=== PATIENT | female | born 1930 | race Caucasian/White ===

== ENCOUNTER 2017-09-29 14:15 | Inpatient (IN) | payer MEDICARE, BC ==
[~2017-09-29] VITALS: Ht 144.8 cm; Wt 42.6 kg
[~2017-09-29 14:15] MED LIST: MACROBID100 MG ORAL
--- NOTE | 2017-09-29 14:51 | Emergency Room Report ---
History of Present Illness General Chief Complaint: Gastrointestinal Bleed Source: Patient, Medical Record Present Illness HPI This is an 87-year-old female brought in by EMS from home after increased rectal bleeding. Patient reportedly had a prior history of mental status abnormalities. The patient noted to have dark stool by caregiver associated with some bright red blood on the diaper. The patient is followed by Dr. Mike Rao. Patient had some complaints of abdominal pain. History is markedly limited by patient's mental status and poor historian Allergies: Coded Allergies: SULFA (SULFONAMIDE ANTIBIOTICS) (Verified Allergy, Unknown, 10/12/15) Patient History Past Medical History: see triage record Past Surgical History: unable to obtain Reviewed Nursing Documentation: PMH: Agreed, PSxH: Agreed Nursing Documentation-PMH Past Medical History: No History, Except For Hx Hypertension: Yes Hx Neurological Problems: Yes - dementia Hx Cerebrovascular Accident: Yes - CVA 2011 Review of Systems All Other Systems: limited - by mental status Physical Exam Vital Signs Date Time Temp Pulse Resp B/P (MAP) Pulse Ox O2 Delivery O2 Flow Rate FiO2 09/29/17 14:16 97.2 84 16 88/41 94 Room Air Sp02 EP Interpretation: normal General Appearance: alert, Chronically Ill Head: normocephalic Eyes: bilateral eye PERRL ENT: normal pharynx Neck: full range of motion, supple Respiratory: lungs clear, no rhonchi Cardiovascular #1: normal peripheral pulses, regular rate, rhythm, no edema Gastrointestinal: normal inspection, tenderness - mild diffuse tenderness Musculoskeletal: normal inspection Neurologic: alert, responsive Psychiatric: anxious Skin: normal inspection, normal color Lymphatic: normal inspection Medical Decision Making Diagnostic Impression: Primary Impression: Fecal impaction in rectum Additional Impressions: Leukocytosis Proctitis ER Course Patient presented for abdominal pain. Differential diagnoses included ischemic bowel, appendicitis, perforated viscus, abdominal aortic aneurysm, inferior myocardial infarction, viral gastroenteritis, splenic artery aneurysm rupture among others.Because of complexity of patient's case laboratory testing and imaging studies were ordered. Medical records reviewed from previous visit. 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 The patient was given IV Zosyn for presumed infection. Patient was noted to have elevated white blood count. CT of the abdomen pelvis read by radiologist as severe fecal impaction with associated proctitis and thickening inflammation of the rectal wall. Dr. Mike Roa was contacted for inpatient management due to primary care physician. Dr. Adame was contacted by Dr. Roa and patient was seen by Dr. Solares in ED. Labs Test 09/29/17 14:50 09/29/17 16:21 White Blood Count 23.2 K/UL (4.8-10.8) Red Blood Count 4.80 M/UL (4.20-5.40) Hemoglobin 15.7 G/DL (12.0-16.0) Hematocrit 48.2 % (37.0-47.0) Mean Corpuscular Volume 100 FL (80-99) Mean Corpuscular Hemoglobin 32.6 PG (27.0-31.0) Mean Corpuscular Hemoglobin Concent 32.5 G/DL (32.0-36.0) Red Cell Distribution Width 12.1 % (11.6-14.8) Platelet Count 42 K/UL (150-450) Mean Platelet Volume 12.9 FL (6.5-10.1) Neutrophils (%) (Auto) % (45.0-75.0) Lymphocytes (%) (Auto) % (20.0-45.0) Monocytes (%) (Auto) % (1.0-10.0) Eosinophils (%) (Auto) % (0.0-3.0) Basophils (%) (Auto) % (0.0-2.0) Differential Total Cells Counted 100 Neutrophils % (Manual) 72 % (45-75) Lymphocytes % (Manual) 6 % (20-45) Monocytes % (Manual) 15 % (1-10) Eosinophils % (Manual) 0 % (0-3) Basophils % (Manual) 0 % (0-2) Band Neutrophils 7 % (0-8) Platelet Estimate Decreased Platelet Morphology Giant Platelets Occasional Polychromasia 1+ Macrocytosis 1+ Sodium Level 140 MMOL/L (136-145) Potassium Level 4.9 MMOL/L (3.5-5.1) Chloride Level 104 MMOL/L (98-107) Carbon Dioxide Level 24 MMOL/L (21-32) Anion Gap 12 mmol/L (5-15) Blood Urea Nitrogen 23 mg/dL (7-18) Creatinine 1.3 MG/DL (0.55-1.30) Estimat Glomerular Filtration Rate mL/min (>60) Glucose Level 204 MG/DL (74-106) Calcium Level 9.8 MG/DL (8.5-10.1) Total Bilirubin 1.0 MG/DL (0.2-1.0) Aspartate Amino Transf (AST/SGOT) 43 U/L (15-37) Alanine Aminotransferase (ALT/SGPT) 23 U/L (12-78) Alkaline Phosphatase 55 U/L (46-116) Total Protein 6.8 G/DL (6.4-8.2) Albumin 3.8 G/DL (3.4-5.0) Globulin 3.0 g/dL Albumin/Globulin Ratio 1.3 (1.0-2.7) EKG Diagnostic Results Rate: normal - 83 Rhythm: NSR ST Segments: no acute changes Last Vital Signs Date Time Temp Pulse Resp B/P (MAP) Pulse Ox O2 Delivery O2 Flow Rate FiO2 09/29/17 14:16 97.2 84 16 88/41 94 Room Air Status: unchanged Disposition: ADMITTED INPATIENT Condition: Serious Referrals: MIKE ROA (PCP) Keith Kay Sep 29, 2017 14:51
[2017-09-29 15:29] LABS: MEAN CORPUSCULAR HEMOGLOBIN 32.6 PG (27.0-31.0); MEAN CORPUSCULAR HGB CONC 32.5 G/DL (32.0-36.0); MEAN CORPUSCULAR VOLUME 100 FL (80-99); MEAN PLATELET VOLUME 12.9 FL (6.5-10.1); PLATELET COUNT 42 K/UL (150-450); RED CELL DISTRIBUTION WIDTH 12.1 % (11.6-14.8)
[2017-09-29 15:33] LABS: WHITE BLOOD COUNT 23.2 K/UL (4.8-10.8)
[2017-09-29] MEDS ORDERED: Zosyn 3.375gm/50ml Premix 50 ML IVPB ONE (15:45)
[2017-09-29 15:48] LABS: ANION GAP 12 mmol/L (5-15); CALCIUM 9.8 MG/DL (8.5-10.1); CARBON DIOXIDE 24 MMOL/L (21-32); CHLORIDE 104 MMOL/L (98-107); CREATININE 1.3 MG/DL (0.55-1.30); POTASSIUM 4.9 MMOL/L (3.5-5.1); SODIUM 140 MMOL/L (136-145)
[2017-09-29 15:53] LABS: ALANINE AMINOTRANSFERASE 23 U/L (12-78); ALBUMIN/GLOBULIN RATIO 1.3 (1.0-2.7); ASPARTATE AMINO TRANSFERASE 43 U/L (15-37); TOTAL PROTEIN 6.8 G/DL (6.4-8.2)
[2017-09-29 16:41] LABS: BAND NEUTROPHILS % (MANUAL) 7 % (0-8); LYMPHOCYTES % (MANUAL) 6 % (20-45); NEUTROPHILS % (MANUAL) 72 % (45-75); TOTAL CELLS COUNTED 100
[2017-09-29 16:42] LABS: BASOPHILS % (MANUAL) 0 % (0-2); EOSINOPHILS % (MANUAL) 0 % (0-3); PLATELET ESTIMATE DECREASED
[2017-09-29 16:43] LABS: MACROCYTES 1+; POLYCHROMASIA 1+
[2017-09-29] MEDS ORDERED: ZANTAC150 MG ORAL (16:48)
[2017-09-29] MEDS ORDERED: SINEMET 25-1001 EAC1 ORAL (16:48)
[2017-09-29] MEDS ORDERED: BUPROPION HCL200 MG PO (16:48)
[2017-09-29] MEDS ORDERED: SIMVASTATIN20 MG ORAL (16:48)
[2017-09-29] MEDS ORDERED: LEXAPRO10 MG ORAL (16:48)
[2017-09-29] MEDS ORDERED: VITAMIN D400 INTLU ORAL (16:48)
[2017-09-29] MEDS ORDERED: NAMENDA10 MG ORAL (16:48)
[2017-09-29] MEDS ORDERED: LISINOPRIL20 MG ORAL (16:48)
[2017-09-29] MEDS ORDERED: QUETIAPINE FUMA50 MG ORAL (16:48)
[2017-09-29] MEDS ORDERED: TRAZODONE HCL150 MG ORAL (16:48)
--- NOTE | 2017-09-29 17:03 | Diagnostic Imaging Report ---
Indication: Abdominal pain Technique: Continuous helical transaxial imaging of the abdomen and pelvis was obtained from the lung bases to the pubic symphysis during intravenous contrast administration. Coronal 2-D reformats were also obtained. Study obtained in a Siemens sensation [address] Automatic Exposure Control was utilized. Total Dose length Product (DLP): [address] Dose Index Volume (CTDIvol): 9.54, 0.15 mGy Comparison: 10/12/15 Findings: There is an omentum of stool in the colon and rectal vault. The rectum is distended measuring about 10 cm. There is thickening of the wall the rectum and perirectal ill-definition soft tissue stranding indicative of proctitis. There is a large hiatal hernia. There is a small right pleural effusion and compressive atelectasis at the right lung base. Curvilinear calcifications are noted along the course of the splenic artery in 2 locations suspicious for small aneurysms (measuring 1.1 CM and 1.3 CM). The liver and spleen unremarkable. Gallbladder and both kidneys appear unremarkable. No evidence of bowel obstruction. Multiple calcific issues noted in the uterus consistent with fibroids. There are diverticula in the colon. There is narrowing of intervertebral discs and accompanying endplate osteophyte formation. Hypertrophied facet joints also demonstrated.. Retrolisthesis noted at L1-2. Impression: Severe fecal impaction. Associated proctitis and thickening inflammation of the rectal wall. Large hiatal hernia. 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
--- NOTE | 2017-09-29 17:29 | GI Initial Consult Note ---
DignaMiranda Rocaoi NLandy 09/29/17 1729: History of Present Illness General Date patient seen: Sep 29, 2017 Time patient seen: 17:16 Reason for Hospitalization: Gastrointestinal Bleed Referring physician: CASSIE ROA Reason for Consultation: LGIB Present Illness HPI This is an 87-year-old female brought in by EMS from home after increased rectal bleeding. Patient reportedly had a prior history of mental status abnormalities. The patient noted to have dark stool by caregiver associated with some bright red blood on the diaper. The patient is followed by Dr. Cassie Roa. Patient had some complaints of abdominal pain. History is markedly limited by patient's mental status and poor historian. GI consulted for GI bleed. HPI as noted above. ROS limited, pt seen in ED awake alert able to answer simple questions with son at bedside. C/o of abdominal pain tender to touch all quadrants. Rectal exam shows hematochezia. CT AP reviewed shows severe fecal impaction associated proctitis and thickening inflammation of the rectal wall, see full report. History received fro chart DM , CVA 2011. Patient presents today with leucocytosis and elevated glucose. Home Meds Active Scripts Nitrofurantoin Monohyd/M-Cryst (Nitrofurantoin Forest-Mcr 100 mg) 100 Mg Cap, 100 MG ORAL Q12H, #14 CAP Prov:RAMIRO JORDAN D.O. 10/13/15 Reported Medications Lisinopril (LISINOPRIL*) 20 Mg Tablet, 20 MG ORAL BID, TAB 09/29/17 Simvastatin (ZOCOR) 20 Mg Tablet, 20 MG ORAL BEDTIME, TAB 09/29/17 Quetiapine Fumarate* (QUETIAPINE FUMARATE*) 50 Mg Tablet, 25 MG ORAL BID, TAB 09/29/17 Escitalopram Oxalate* (LEXAPRO*) 10 Mg Tablet, 5 MG ORAL DAILY, TAB 09/29/17 Trazodone* (TRAZODONE*) 150 Mg Tablet, 50 MG ORAL BEDTIME, TAB 09/29/17 Vitamin D (Vitamin D3) 400 Unit Tablet, 2000 UNITS ORAL BID, TAB 09/29/17 Ranitidine Hcl* (ZANTAC*) 150 Mg Tablet, 150 MG ORAL DAILY, #30 TAB 0 Refills 09/29/17 Memantine Hcl* (NAMENDA*) 10 Mg Tablet, 10 MG ORAL TWICE A DAY, TAB 09/29/17 Bupropion Hcl (BUPROPION HCL SR) 200 Mg Tablet.er, 75 MG PO DAILY, TAB 09/29/17 Carbidopa/Levodopa 25-100 Mg* (SINEMET 25-100 MG TABLET*) 1 Each Tablet, 1 TAB ORAL BID, TAB 09/29/17 Med list reviewed/reconciled: Yes Allergies: Coded Allergies: SULFA (SULFONAMIDE ANTIBIOTICS) (Verified Allergy, Unknown, 10/12/15) Patient History Limited by: medical condition History Provided By: Patient, Family Member, Medical Record PMH Narrative Past Medical History: see triage record Past Surgical History: unable to obtain Reviewed Nursing Documentation: PMH: Agreed, PSxH: Agreed Nursing Documentation-PMH Past Medical History: No History, Except For Hx Hypertension: Yes Hx Neurological Problems: Yes - dementia Hx Cerebrovascular Accident: Yes - CVA 2011 Social History: Denies: smoking, alcohol use, drug use, other Review of Systems All Other Systems: negative except mentioned in HPI Physical Exam Vital Signs Date Time Temp Pulse Resp B/P (MAP) Pulse Ox O2 Delivery O2 Flow Rate FiO2 09/29/17 14:16 97.2 84 16 88/41 94 Room Air Sp02 EP Interpretation: reviewed, normal Labs Laboratory Tests Test 09/29/17 14:50 09/29/17 16:21 White Blood Count 23.2 K/UL (4.8-10.8) *H Red Blood Count 4.80 M/UL (4.20-5.40) Hemoglobin 15.7 G/DL (12.0-16.0) Hematocrit 48.2 % (37.0-47.0) H Mean Corpuscular Volume 100 FL (80-99) H Mean Corpuscular Hemoglobin 32.6 PG (27.0-31.0) H Mean Corpuscular Hemoglobin Concent 32.5 G/DL (32.0-36.0) Red Cell Distribution Width 12.1 % (11.6-14.8) Platelet Count 42 K/UL (150-450) L Mean Platelet Volume 12.9 FL (6.5-10.1) H Neutrophils (%) (Auto) % (45.0-75.0) Lymphocytes (%) (Auto) % (20.0-45.0) Monocytes (%) (Auto) % (1.0-10.0) Eosinophils (%) (Auto) % (0.0-3.0) Basophils (%) (Auto) % (0.0-2.0) Differential Total Cells Counted 100 Neutrophils % (Manual) 72 % (45-75) Lymphocytes % (Manual) 6 % (20-45) L Monocytes % (Manual) 15 % (1-10) H Eosinophils % (Manual) 0 % (0-3) Basophils % (Manual) 0 % (0-2) Band Neutrophils 7 % (0-8) Platelet Estimate Decreased L Platelet Morphology Giant Platelets Occasional Polychromasia 1+ Macrocytosis 1+ Sodium Level 140 MMOL/L (136-145) Potassium Level 4.9 MMOL/L (3.5-5.1) Chloride Level 104 MMOL/L (98-107) Carbon Dioxide Level 24 MMOL/L (21-32) Anion Gap 12 mmol/L (5-15) Blood Urea Nitrogen 23 mg/dL (7-18) H Creatinine 1.3 MG/DL (0.55-1.30) Estimat Glomerular Filtration Rate mL/min (>60) Glucose Level 204 MG/DL (74-106) H Calcium Level 9.8 MG/DL (8.5-10.1) Total Bilirubin 1.0 MG/DL (0.2-1.0) Aspartate Amino Transf (AST/SGOT) 43 U/L (15-37) H Alanine Aminotransferase (ALT/SGPT) 23 U/L (12-78) Alkaline Phosphatase 55 U/L (46-116) Total Protein 6.8 G/DL (6.4-8.2) Albumin 3.8 G/DL (3.4-5.0) Globulin 3.0 g/dL Albumin/Globulin Ratio 1.3 (1.0-2.7) Prothrombin Time Pending Prothromb Time International Ratio Pending Activated Partial Thromboplast Time Pending General Appearance: well appearing, no apparent distress, alert, thin Head: normocephalic EENT: PERRL/EOMI, normal ENT inspection Neck: supple Respiratory: normal breath sounds, no respiratory distress Cardiovascular: normal rate Gastrointestinal: normal inspection, soft, normal bowel sounds, non-distended, tenderness - lower abdominal Rectal: deferred Genitourinary: no CVA tenderness Musculoskeletal: normal inspection, back normal Neurologic: normal inspection, alert, responsive Skin: normal inspection, normal color, no rash, warm/dry, palpation normal, well hydrated Lymphatic: normal inspection, no adenopathy Current Medications Current Medications Medications (Trade) Dose Ordered Sig/Anabella Route PRN Reason Start Time Stop Time Status Last Admin Dose Admin Piperacillin/ Tazobactam/ Dextrose 50 ml @ 12.5 mls/hr Q12HR ONCE IVPB 09/29/17 15:45 09/29/17 19:44 09/29/17 16:01 GI: Plan Problems: (1) Hematochezia (2) Fecal impaction in rectum (3) Leukocytosis (4) Constipation Plan CT AP reviewed >> Severe fecal impaction. Associated proctitis and thickening inflammation of the rectal wall, see full report. will consider colonoscopy if patient has recurrent bleeding >> stable H&H at this time - discussed with son that patient must change code status to FULL CODE if were to have a colonoscopy, he will discuss with the family. will give fleets mineral oil enema now, follow with mineral oil PO later tonight >> consider digital disimpaction if not resolved start bowel regime tomorrow >> colace + miralax IV/PO hydration CLD, adv as tolerated ADA diet H2B DM mgmt fu labs Discussed with Dr. Guerra. Thank you for this patient referral, we will follow. RIKKI GUERRA 10/03/17 1416: History of Present Illness General Reason for Hospitalization: Gastrointestinal Bleed Present Illness Home Meds Active Scripts Nitrofurantoin Monohyd/M-Cryst (Nitrofurantoin Forest-Mcr 100 mg) 100 Mg Cap, 100 MG ORAL Q12H, #14 CAP Prov:RAMIRO JORDAN D.O. 10/13/15 Reported Medications Lisinopril (LISINOPRIL*) 20 Mg Tablet, 20 MG ORAL BID, TAB 09/29/17 Simvastatin (ZOCOR) 20 Mg Tablet, 20 MG ORAL BEDTIME, TAB 09/29/17 Quetiapine Fumarate* (QUETIAPINE FUMARATE*) 50 Mg Tablet, 25 MG ORAL BID, TAB 09/29/17 Escitalopram Oxalate* (LEXAPRO*) 10 Mg Tablet, 5 MG ORAL DAILY, TAB 09/29/17 Trazodone* (TRAZODONE*) 150 Mg Tablet, 50 MG ORAL BEDTIME, TAB 09/29/17 Vitamin D (Vitamin D3) 400 Unit Tablet, 2000 UNITS ORAL BID, TAB 09/29/17 Ranitidine Hcl* (ZANTAC*) 150 Mg Tablet, 150 MG ORAL DAILY, #30 TAB 0 Refills 09/29/17 Memantine Hcl* (NAMENDA*) 10 Mg Tablet, 10 MG ORAL TWICE A DAY, TAB 09/29/17 Bupropion Hcl (BUPROPION HCL SR) 200 Mg Tablet.er, 75 MG PO DAILY, TAB 09/29/17 Carbidopa/Levodopa 25-100 Mg* (SINEMET 25-100 MG TABLET*) 1 Each Tablet, 1 TAB ORAL BID, TAB 09/29/17 Allergies: Coded Allergies: SULFA (SULFONAMIDE ANTIBIOTICS) (Verified Allergy, Unknown, 10/12/15) GI: Plan Plan The patient was seen and examined at bedside and all new and available data was reviewed in the patients chart. I agree with the above findings, impression and plan. (Patient seen earlier today. Signature stamp does not reflect patient encounter time.). - [facility] Reilly NLandy Sep 29, 2017 17:29 RIKKI GUERRA Oct 03, 2017 14:16
[2017-09-29 17:34] LABS: APPEARANCE,URINE CLEAR; KETONES,URINE NEGATIVE (NEGATIVE); LEUKOCYTE ESTERASE ,URINE 1+ (NEGATIVE); NITRITE,URINE NEGATIVE (NEGATIVE); PH,URINE 7 (4.5-8.0); PROTEIN,URINE 2+ (NEGATIVE); UROBILINOGEN,URINE NORMAL MG/DL (0.0-1.0)
[2017-09-29 17:40] VITALS: BP 90/48
[2017-09-29 17:50] LABS: BACTERIA,URINE FEW /HPF; SQUAMOUS EPITHELIAL CELL,UR FEW /LPF (NONE/OCC); WBC,URINE 0-2 /HPF (0 - 2)
[2017-09-29] MEDS ORDERED: Fleet's Mineral Oil Enema RECTAL ONE ×2 (18:15→20:30)
[2017-09-29] MEDS: Lisinopril 10mg tab ORAL SCH (21:23)
[2017-09-29] MEDS ORDERED: Mineral Oil 30ml ud ORAL PRN (22:00)
[2017-09-29] MEDS: Lacri-Lube Opth Oint 3.5gm LEFT EYE SCH (23:36)
[2017-09-30] VITALS: BP 79/33
[2017-09-30] MEDS ORDERED: Sodium Chloride 500ML 500 ML IVPB ONE (00:15)
[2017-09-30 01:00] LABS: MEAN CORPUSCULAR HEMOGLOBIN 32.3 PG (27.0-31.0); MEAN CORPUSCULAR HGB CONC 31.7 G/DL (32.0-36.0); MEAN CORPUSCULAR VOLUME 102 FL (80-99); MEAN PLATELET VOLUME 12.8 FL (6.5-10.1); PLATELET COUNT 28 K/UL (150-450); RED BLOOD COUNT 3.88 M/UL (4.20-5.40); RED CELL DISTRIBUTION WIDTH 12.3 % (11.6-14.8); WHITE BLOOD COUNT 21.5 K/UL (4.8-10.8)
[2017-09-30 01:43] LABS: PROTHROMBIN TIME 10.5 SEC (9.30-11.50)
[2017-09-30 04:00] VITALS: BP 82/42
[2017-09-30] MEDS: Zosyn 3.375gm/50ml Premix 50 ML IVPB SCH ×2 (04:39→17:15)
[2017-09-30 07:58] LABS: MEAN CORPUSCULAR HEMOGLOBIN 33.7 PG (27.0-31.0); MEAN CORPUSCULAR HGB CONC 34.4 G/DL (32.0-36.0); MEAN CORPUSCULAR VOLUME 98 FL (80-99); MEAN PLATELET VOLUME 15.8 FL (6.5-10.1); PLATELET COUNT 39 K/UL (150-450); RED BLOOD COUNT 3.97 M/UL (4.20-5.40); RED CELL DISTRIBUTION WIDTH 12.6 % (11.6-14.8)
[2017-09-30 08:00] VITALS: BP 85/35
[2017-09-30 08:18] LABS: ALANINE AMINOTRANSFERASE 40 U/L (12-78); ALBUMIN/GLOBULIN RATIO 1.3 (1.0-2.7); ANION GAP 12 mmol/L (5-15); ASPARTATE AMINO TRANSFERASE 31 U/L (15-37); CALCIUM 9.3 MG/DL (8.5-10.1); CARBON DIOXIDE 19 MMOL/L (21-32); CHLORIDE 110 MMOL/L (98-107); CREATININE 1.4 MG/DL (0.55-1.30); POTASSIUM 4.7 MMOL/L (3.5-5.1); SODIUM 141 MMOL/L (136-145); TOTAL PROTEIN 6.1 G/DL (6.4-8.2)
[2017-09-30] MEDS: Docusate 100mg cap ORAL SCH ×3 (08:44→17:17)
[2017-09-30] MEDS: Memantine 10mg tab ORAL SCH ×2 (08:44→17:17)
[2017-09-30] MEDS: Sinemet 25/100 tab ORAL SCH ×2 (08:44→17:17)
[2017-09-30] MEDS: Escitalopram Oxalate 5mg tab ORAL SCH (08:44)
[2017-09-30] MEDS: Miralax 17gm pkt ORAL SCH ×3 (08:45→20:13)
[2017-09-30] MEDS: Pantoprazole Inj IVP SCH (08:45)
--- NOTE | 2017-09-30 10:37 | General Progress Note ---
Assessment/Plan Problem List: (1) Fecal impaction in rectum ICD Codes: K56.41 - Fecal impaction SNOMED: 78205860 (2) Leukocytosis ICD Codes: D72.829 - Elevated white blood cell count, unspecified SNOMED: 370300763, 194817266 (3) Constipation ICD Codes: K59.00 - Constipation, unspecified SNOMED: 17616944 (4) Hematochezia ICD Codes: K92.1 - Melena SNOMED: 376322989 Assessment/Plan add lactulose add anusol HC advance diet stable H&H abx gi procedures on hold Subjective ROS Limited/Unobtainable: Yes Allergies: Coded Allergies: SULFA (SULFONAMIDE ANTIBIOTICS) (Verified Allergy, Unknown, 10/12/15) Subjective still has rectal bleed but better Objective Last 24 Hour Vital Signs Date Time Temp Pulse Resp B/P (MAP) Pulse Ox O2 Delivery O2 Flow Rate FiO2 09/30/17 08:00 97.2 81 20 85/35 92 Room Air 09/30/17 04:00 76 09/30/17 04:00 98.1 85 24 82/42 92 Room Air 09/30/17 00:00 97.7 86 21 79/33 88 Room Air 09/30/17 00:00 84 09/29/17 21:23 98/53 09/29/17 14:16 97.2 84 16 88/41 94 Room Air Laboratory Tests 09/29/17 14:50: White Blood Count 23.2*H, Red Blood Count 4.80, Hemoglobin 15.7, Hematocrit 48.2H, Mean Corpuscular Volume 100H, Mean Corpuscular Hemoglobin 32.6H, Mean Corpuscular Hemoglobin Concent 32.5, Red Cell Distribution Width 12.1, Platelet Count 42L, Mean Platelet Volume 12.9H, Neutrophils (%) (Auto) , Lymphocytes (%) (Auto) , Monocytes (%) (Auto) , Eosinophils (%) (Auto) , Basophils (%) (Auto) , Differential Total Cells Counted 100, Neutrophils % (Manual) 72, Lymphocytes % ( Manual) 6L, Monocytes % (Manual) 15H, Eosinophils % (Manual) 0, Basophils % ( Manual) 0, Band Neutrophils 7, Platelet Estimate DecreasedL, Platelet Morphology , Giant Platelets Occasional, Polychromasia 1+, Macrocytosis 1+, Sodium Level 140, Potassium Level 4.9, Chloride Level 104, Carbon Dioxide Level 24, Anion Gap 12, Blood Urea Nitrogen 23H, Creatinine 1.3, Estimat Glomerular Filtration Rate , Glucose Level 204H, Calcium Level 9.8, Total Bilirubin 1.0, Aspartate Amino Transf (AST/SGOT) 43H, Alanine Aminotransferase (ALT/SGPT) 23, Alkaline Phosphatase 55, Total Protein 6.8, Albumin 3.8, Globulin 3.0, Albumin/ Globulin Ratio 1.3 09/29/17 17:14: Urine Color Yellow, Urine Appearance Clear, Urine pH 7, Urine Specific [place] 1.010, Urine Protein 2+H, Urine Glucose (UA) Negative, Urine Ketones Negative, Urine Occult Blood 1+H, Urine Nitrite Negative, Urine Bilirubin Negative, Urine Urobilinogen Normal, Urine Leukocyte Esterase 1+H, Urine RBC 2-4H, Urine WBC 0-2 , Urine Squamous Epithelial Cells Few, Urine Bacteria Few 09/30/17 00:30: White Blood Count 21.5H, Red Blood Count 3.88L, Hemoglobin 12.5, Hematocrit 39.4 , Mean Corpuscular Volume 102H, Mean Corpuscular Hemoglobin 32.3H, Mean Corpuscular Hemoglobin Concent 31.7L, Red Cell Distribution Width 12.3, Platelet Count 28L, Mean Platelet Volume 12.8H, Neutrophils (%) (Auto) , Lymphocytes (%) (Auto) , Monocytes (%) (Auto) , Eosinophils (%) (Auto) , Basophils (%) (Auto) , Prothrombin Time 10.5, Prothromb Time International Ratio 1.0, Activated Partial Thromboplast Time 28 09/30/17 07:05: White Blood Count 26.0*H, Red Blood Count 3.97L, Hemoglobin 13.4, Hematocrit 39.0, Mean Corpuscular Volume 98, Mean Corpuscular Hemoglobin 33.7H, Mean Corpuscular Hemoglobin Concent 34.4, Red Cell Distribution Width 12.6, Platelet Count 39L, Mean Platelet Volume 15.8H, Neutrophils (%) (Auto) , Lymphocytes (%) (Auto) , Monocytes (%) (Auto) , Eosinophils (%) (Auto) , Basophils (%) (Auto) , Neutrophils % (Manual) [Pending], Lymphocytes % (Manual) [Pending], Platelet Estimate [Pending], Platelet Morphology [Pending], Sodium Level 141, Potassium Level 4.7, Chloride Level 110H, Carbon Dioxide Level 19L, Anion Gap 12, Blood Urea Nitrogen 33H, Creatinine 1.4H, Estimat Glomerular Filtration Rate , Glucose Level 172H, Calcium Level 9.3, Total Bilirubin 0.6, Aspartate Amino Transf (AST/SGOT) 31, Alanine Aminotransferase (ALT/SGPT) 40, Alkaline Phosphatase 46, Total Protein 6.1L, Albumin 3.4, Globulin 2.7, Albumin/Globulin Ratio 1.3 Height (Feet): 4 Height (Inches): 9.00 Weight (Pounds): 94 General Appearance: no apparent distress EENT: normal ENT inspection Neck: supple Cardiovascular: normal rate Respiratory/Chest: decreased breath sounds Abdomen: normal bowel sounds, non tender, soft Extremities: non-tender RIKKI GUERRA Sep 30, 2017 10:37
[2017-09-30 10:56] LABS: BAND NEUTROPHILS % (MANUAL) 6 % (0-8); BASOPHILS % (MANUAL) 0 % (0-2); EOSINOPHILS % (MANUAL) 0 % (0-3); LYMPHOCYTES % (MANUAL) 6 % (20-45); NEUTROPHILS % (MANUAL) 60 % (45-75); PLATELET ESTIMATE DECREASED; PLATELET MORPHOLOGY NORMAL; TOTAL CELLS COUNTED 100
[2017-09-30 12:00] VITALS: BP 100/57
[2017-09-30] MEDS: Lactulose 10gm/15ml UDC ORAL SCH ×2 (14:19→17:17)
[2017-09-30 16:00] VITALS: BP 98/53
--- NOTE | 2017-09-30 16:06 | Geriatric Progress Note ---
Subjective Interval Events Patient presents with rectal bleeding, blood in stool. In ER with significant leukocytosis, with component of monocytosis, which has doubled over night. CT with massive rectal impaction and evidence of proctitis. Initially hypotensive last night, early this am, but with Zosyn, vigorous hydration, bp stabilized. Continues to have frequent stools, with evidence of dark blood in stool. Patient remarkably non-toxic in appearance, denies c/o, except for L groin c/o pain and pain in feet which is chronic. Tolerating p.o. Seen by Dr. Solares and and Estefani Sawyer, aggressive bowel tx initiated, conservative approach implemented. PMH: S/p CVA, L hemiparesis. B knee contracturing. HTN. Pseudobulbar lability. 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 Chronic pain syndrome, primarily with L groin pain. Chronic depression with anxiety, agitation, psychosis. Parkinsonism. 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 Meds: Bupropion 75 mg daily. Carbidopa-Levodopa 25/100 bid. Vit D3 2000u bid. Dextromethorphan 15mg/5ml 6mg q2h w/a. Lexapro 5 mg daily. Lisinopril 30 mg qhs Namenda 10 mg bid. Quetiapine 25 mg qam, 150 mg qhs. Ranitidine 150 mg qhs. Simvastatin 20 mg qhs. Trazodone 50 mg qhs prn insomnia. Discussed in detail with son Ziggy, dtr. Consensus to tx conservatively, with hope that no invasive therapy will be required. Family understands that if patient has massive bleeding or aggressive septic picture she may do poorly. No CPR with conservative but active tx elected. Will add Flagyl p.o. for proctitis. Dr. Griffith to see re antibiotic coverage. Dictated #[id number] Geriatric Geriatric Last 24 Hour Vital Signs Date Time Temp Pulse Resp B/P (MAP) Pulse Ox O2 Delivery O2 Flow Rate FiO2 09/30/17 12:00 89 09/30/17 12:00 98.2 82 20 100/57 92 Room Air 09/30/17 08:00 80 09/30/17 08:00 97.2 81 20 85/35 92 Room Air 09/30/17 04:00 76 09/30/17 04:00 98.1 85 24 82/42 92 Room Air 09/30/17 00:00 97.7 86 21 79/33 88 Room Air 09/30/17 00:00 84 09/29/17 21:23 98/53 Intake and Output 09/30/17 10/01/17 19:00 07:00 # Bowel Movements 1 Laboratory Tests Test 09/29/17 17:14 09/30/17 00:30 09/30/17 07:05 Urine Color Yellow Urine Appearance Clear Urine pH 7 (4.5-8.0) Urine Specific [place] 1.010 (1.005-1.035) Urine Protein 2+ (NEGATIVE) H Urine Glucose (UA) Negative (NEGATIVE) Urine Ketones Negative (NEGATIVE) Urine Occult Blood 1+ (NEGATIVE) H Urine Nitrite Negative (NEGATIVE) Urine Bilirubin Negative (NEGATIVE) Urine Urobilinogen Normal MG/DL (0.0-1.0) Urine Leukocyte Esterase 1+ (NEGATIVE) H Urine RBC 2-4 /HPF (0 - 2) H Urine WBC 0-2 /HPF (0 - 2) Urine Squamous Epithelial Cells Few /LPF (NONE/OCC) Urine Bacteria Few /HPF (NONE) White Blood Count 21.5 K/UL (4.8-10.8) H 26.0 K/UL (4.8-10.8) *H Red Blood Count 3.88 M/UL (4.20-5.40) L 3.97 M/UL (4.20-5.40) L Hemoglobin 12.5 G/DL (12.0-16.0) 13.4 G/DL (12.0-16.0) Hematocrit 39.4 % (37.0-47.0) 39.0 % (37.0-47.0) Mean Corpuscular Volume 102 FL (80-99) H 98 FL (80-99) Mean Corpuscular Hemoglobin 32.3 PG (27.0-31.0) H 33.7 PG (27.0-31.0) H Mean Corpuscular Hemoglobin Concent 31.7 G/DL (32.0-36.0) L 34.4 G/DL (32.0-36.0) Red Cell Distribution Width 12.3 % (11.6-14.8) 12.6 % (11.6-14.8) Platelet Count 28 K/UL (150-450) L 39 K/UL (150-450) L Mean Platelet Volume 12.8 FL (6.5-10.1) H 15.8 FL (6.5-10.1) H Neutrophils (%) (Auto) % (45.0-75.0) % (45.0-75.0) Lymphocytes (%) (Auto) % (20.0-45.0) % (20.0-45.0) Monocytes (%) (Auto) % (1.0-10.0) % (1.0-10.0) Eosinophils (%) (Auto) % (0.0-3.0) % (0.0-3.0) Basophils (%) (Auto) % (0.0-2.0) % (0.0-2.0) Prothrombin Time 10.5 SEC (9.30-11.50) Prothromb Time International Ratio 1.0 (0.9-1.1) Activated Partial Thromboplast Time 28 SEC (23-33) Differential Total Cells Counted 100 Neutrophils % (Manual) 60 % (45-75) Lymphocytes % (Manual) 6 % (20-45) L Monocytes % (Manual) 28 % (1-10) H Eosinophils % (Manual) 0 % (0-3) Basophils % (Manual) 0 % (0-2) Band Neutrophils 6 % (0-8) Nucleated Red Blood Cells /100 WBC Platelet Estimate Decreased L Platelet Morphology Normal Red Blood Cell Morphology Normal Sodium Level 141 MMOL/L (136-145) Potassium Level 4.7 MMOL/L (3.5-5.1) Chloride Level 110 MMOL/L (98-107) H Carbon Dioxide Level 19 MMOL/L (21-32) L Anion Gap 12 mmol/L (5-15) Blood Urea Nitrogen 33 mg/dL (7-18) H Creatinine 1.4 MG/DL (0.55-1.30) H Estimat Glomerular Filtration Rate mL/min (>60) Glucose Level 172 MG/DL (74-106) H Calcium Level 9.3 MG/DL (8.5-10.1) Total Bilirubin 0.6 MG/DL (0.2-1.0) Aspartate Amino Transf (AST/SGOT) 31 U/L (15-37) Alanine Aminotransferase (ALT/SGPT) 40 U/L (12-78) Alkaline Phosphatase 46 U/L (46-116) Total Protein 6.1 G/DL (6.4-8.2) L Albumin 3.4 G/DL (3.4-5.0) Globulin 2.7 g/dL Albumin/Globulin Ratio 1.3 (1.0-2.7) Current Medications Medications (Trade) Dose Ordered Sig/Anabella Route PRN Reason Start Time Stop Time Status Last Admin Dose Admin Artificial Tears (Lacri-Lube) 1 applic BEDTIME LEFT EYE 09/29/17 22:00 10/29/17 21:59 09/29/17 23:36 Bupropion HCl (Wellbutrin SR) 75 mg DAILY ORAL 10/01/17 09:00 10/31/17 08:59 UNV Carbidopa/Levodopa (Sinemet 25/100) 1 ea BID ORAL 09/30/17 09:00 10/30/17 08:59 09/30/17 08:44 Docusate Sodium (Colace) 100 mg THREE TIMES A DAY ORAL 09/30/17 09:00 10/30/17 08:59 09/30/17 14:19 Escitalopram Oxalate (Lexapro) 5 mg DAILY ORAL 09/30/17 09:00 10/30/17 08:59 09/30/17 08:44 Hydrocortisone (Anusol HC) 1 applic TWICE A DAY RECTAL 09/30/17 18:00 10/30/17 17:59 Lactulose (Cephulac) 10 gm THREE TIMES A DAY ORAL 09/30/17 13:00 10/30/17 12:59 09/30/17 14:19 Lisinopril (Zestril) 30 mg BEDTIME ORAL 09/29/17 22:00 10/29/17 21:59 Memantine (Namenda) 10 mg BID ORAL 09/30/17 09:00 10/30/17 08:59 09/30/17 08:44 Metronidazole (Flagyl) 500 mg Q6HR ORAL 09/30/17 18:00 10/07/17 17:59 UNV Mineral Oil (Mineral Oil) 30 ml DAILYPRN PRN ORAL Constipation 09/29/17 22:00 10/29/17 21:59 Pantoprazole (Protonix) 40 mg DAILY IVP 09/30/17 09:00 10/30/17 08:59 09/30/17 08:45 Patient Own Medication (Patient's Own Med) 1 ea Q2H NG 09/29/17 22:00 10/29/17 21:59 UNV Piperacillin/ Tazobactam/ Dextrose 50 ml @ 12.5 mls/hr Q12HR@0400,1600 IVPB 09/30/17 04:00 10/07/17 03:59 09/30/17 04:39 Polyethylene Glycol (Miralax) 17 gm BEDTIME ORAL 09/30/17 21:00 10/30/17 20:59 Polyethylene Glycol (Miralax) 17 gm BID ORAL 09/30/17 09:00 10/30/17 08:59 09/30/17 08:45 Quetiapine Fumarate (SEROquel) 25 mg DAILY ORAL 09/30/17 09:00 10/30/17 08:59 09/30/17 08:44 Quetiapine Fumarate (SEROquel) 150 mg BEDTIME ORAL 09/29/17 22:00 10/29/17 21:59 09/29/17 21:22 Sodium Chloride 1,000 ml @ 75 mls/hr [id number] IV 10/01/17 00:45 10/31/17 00:44 UNV Height (Feet): 4 Height (Inches): 9.00 Weight (Pounds): 94 CASSIE ROA Sep 30, 2017 16:06
[2017-09-30] MEDS ORDERED: NS 500ML IV ONE (16:10)
[2017-09-30] MEDS ORDERED: Tubing IV Secondary IV ONE (16:10)
[2017-09-30] MEDS: metroNIDAZOLE 500mg tab ORAL SCH ×2 (17:17→23:24)
[2017-09-30 20:00] VITALS: BP 102/49
[2017-09-30] MEDS: Lacri-Lube Opth Oint 3.5gm LEFT EYE SCH (20:12)
[2017-09-30] MEDS: Lisinopril 10mg tab ORAL SCH (20:13)
--- NOTE | 2017-09-30 21:47 | Infectious Diseases Prog Note ---
Assessment/Plan Assessment/Plan Full consult dictated: A) 1) sepsis, leukocytosis, proctitis, fecal impaction 2) ua benign, check chest x-ray, no diarrhea to suggest c.diff. 3) pmh noted 4) allergies - sulfa P) 1) agree with zosyn and flagyl 2) check bc, labs and chest x-ray 3) GI f/u 4) d/w Dr. Moody 5) thank you Subjective Allergies: Coded Allergies: SULFA (SULFONAMIDE ANTIBIOTICS) (Verified Allergy, Unknown, 10/12/15) Objective Vital Signs Last 24 Hour Vital Signs Date Time Temp Pulse Resp B/P (MAP) Pulse Ox O2 Delivery O2 Flow Rate FiO2 09/30/17 20:13 93/47 09/30/17 20:00 77 09/30/17 20:00 97.9 78 18 102/49 90 Room Air 09/30/17 16:00 98.1 73 18 98/53 91 Room Air 09/30/17 16:00 73 09/30/17 12:00 89 09/30/17 12:00 98.2 82 20 100/57 92 Room Air 09/30/17 08:00 80 09/30/17 08:00 97.2 81 20 85/35 92 Room Air 09/30/17 04:00 76 09/30/17 04:00 98.1 85 24 82/42 92 Room Air 09/30/17 00:00 97.7 86 21 79/33 88 Room Air 09/30/17 00:00 84 Height (Feet): 4 Height (Inches): 9.00 Weight (Pounds): 94 Laboratory Tests Test 09/30/17 00:30 09/30/17 07:05 White Blood Count 21.5 K/UL (4.8-10.8) H 26.0 K/UL (4.8-10.8) *H Red Blood Count 3.88 M/UL (4.20-5.40) L 3.97 M/UL (4.20-5.40) L Hemoglobin 12.5 G/DL (12.0-16.0) 13.4 G/DL (12.0-16.0) Hematocrit 39.4 % (37.0-47.0) 39.0 % (37.0-47.0) Mean Corpuscular Volume 102 FL (80-99) H 98 FL (80-99) Mean Corpuscular Hemoglobin 32.3 PG (27.0-31.0) H 33.7 PG (27.0-31.0) H Mean Corpuscular Hemoglobin Concent 31.7 G/DL (32.0-36.0) L 34.4 G/DL (32.0-36.0) Red Cell Distribution Width 12.3 % (11.6-14.8) 12.6 % (11.6-14.8) Platelet Count 28 K/UL (150-450) L 39 K/UL (150-450) L Mean Platelet Volume 12.8 FL (6.5-10.1) H 15.8 FL (6.5-10.1) H Neutrophils (%) (Auto) % (45.0-75.0) % (45.0-75.0) Lymphocytes (%) (Auto) % (20.0-45.0) % (20.0-45.0) Monocytes (%) (Auto) % (1.0-10.0) % (1.0-10.0) Eosinophils (%) (Auto) % (0.0-3.0) % (0.0-3.0) Basophils (%) (Auto) % (0.0-2.0) % (0.0-2.0) Prothrombin Time 10.5 SEC (9.30-11.50) Prothromb Time International Ratio 1.0 (0.9-1.1) Activated Partial Thromboplast Time 28 SEC (23-33) Differential Total Cells Counted 100 Neutrophils % (Manual) 60 % (45-75) Lymphocytes % (Manual) 6 % (20-45) L Monocytes % (Manual) 28 % (1-10) H Eosinophils % (Manual) 0 % (0-3) Basophils % (Manual) 0 % (0-2) Band Neutrophils 6 % (0-8) Nucleated Red Blood Cells /100 WBC Platelet Estimate Decreased L Platelet Morphology Normal Red Blood Cell Morphology Normal Sodium Level 141 MMOL/L (136-145) Potassium Level 4.7 MMOL/L (3.5-5.1) Chloride Level 110 MMOL/L (98-107) H Carbon Dioxide Level 19 MMOL/L (21-32) L Anion Gap 12 mmol/L (5-15) Blood Urea Nitrogen 33 mg/dL (7-18) H Creatinine 1.4 MG/DL (0.55-1.30) H Estimat Glomerular Filtration Rate mL/min (>60) Glucose Level 172 MG/DL (74-106) H Calcium Level 9.3 MG/DL (8.5-10.1) Total Bilirubin 0.6 MG/DL (0.2-1.0) Aspartate Amino Transf (AST/SGOT) 31 U/L (15-37) Alanine Aminotransferase (ALT/SGPT) 40 U/L (12-78) Alkaline Phosphatase 46 U/L (46-116) Total Protein 6.1 G/DL (6.4-8.2) L Albumin 3.4 G/DL (3.4-5.0) Globulin 2.7 g/dL Albumin/Globulin Ratio 1.3 (1.0-2.7) Current Medications Medications (Trade) Dose Ordered Sig/Anabella Route PRN Reason Start Time Stop Time Status Last Admin Dose Admin Artificial Tears (Lacri-Lube) 1 applic BEDTIME LEFT EYE 09/29/17 22:00 10/29/17 21:59 09/30/17 20:12 Bupropion HCl (Wellbutrin) 75 mg DAILY ORAL 10/01/17 09:00 10/31/17 08:59 Carbidopa/Levodopa (Sinemet 25/100) 1 ea BID ORAL 09/30/17 09:00 10/30/17 08:59 09/30/17 17:17 Docusate Sodium (Colace) 100 mg THREE TIMES A DAY ORAL 09/30/17 09:00 10/30/17 08:59 09/30/17 17:17 Escitalopram Oxalate (Lexapro) 5 mg DAILY ORAL 09/30/17 09:00 10/30/17 08:59 09/30/17 08:44 Hydrocortisone (Anusol HC) 1 applic TWICE A DAY RECTAL 09/30/17 18:00 10/30/17 17:59 09/30/17 17:41 Lactulose (Cephulac) 10 gm THREE TIMES A DAY ORAL 09/30/17 13:00 10/30/17 12:59 09/30/17 17:17 Lisinopril (Zestril) 30 mg BEDTIME ORAL 09/29/17 22:00 10/29/17 21:59 Memantine (Namenda) 10 mg BID ORAL 09/30/17 09:00 10/30/17 08:59 09/30/17 17:17 Metronidazole (Flagyl) 500 mg Q6HR ORAL 09/30/17 18:00 10/07/17 17:59 09/30/17 17:17 Mineral Oil (Mineral Oil) 30 ml DAILYPRN PRN ORAL Constipation 09/29/17 22:00 10/29/17 21:59 Pantoprazole (Protonix) 40 mg DAILY IVP 09/30/17 09:00 10/30/17 08:59 09/30/17 08:45 Patient Own Medication (Patient's Own Med) 1 ea Q2H NG 09/29/17 22:00 10/29/17 21:59 UNV Piperacillin/ Tazobactam/ Dextrose 50 ml @ 12.5 mls/hr Q12HR@0400,1600 IVPB 09/30/17 04:00 10/07/17 03:59 09/30/17 17:15 Polyethylene Glycol (Miralax) 17 gm BEDTIME ORAL 09/30/17 21:00 10/30/17 20:59 09/30/17 20:13 Polyethylene Glycol (Miralax) 17 gm BID ORAL 09/30/17 09:00 10/30/17 08:59 09/30/17 17:16 Quetiapine Fumarate (SEROquel) 25 mg DAILY ORAL 09/30/17 09:00 10/30/17 08:59 09/30/17 08:44 Quetiapine Fumarate (SEROquel) 150 mg BEDTIME ORAL 09/29/17 22:00 10/29/17 21:59 09/30/17 20:12 Sodium Chloride 1,000 ml @ 75 mls/hr [id number] IV 09/30/17 16:30 10/30/17 16:29 09/30/17 17:16 ERIKA FRAIRE Sep 30, 2017 21:47
[2017-10-01] VITALS: BP 100/52
[2017-10-01] MEDS: Zosyn 3.375gm/50ml Premix 50 ML IVPB SCH ×2 (02:58→15:11)
[2017-10-01 04:00] VITALS: BP 109/59
[2017-10-01] MEDS: metroNIDAZOLE 500mg tab ORAL SCH ×3 (05:53→21:38)
--- NOTE | 2017-10-01 07:35 | General Progress Note ---
Assessment/Plan Problem List: (1) Fecal impaction in rectum ICD Codes: K56.41 - Fecal impaction SNOMED: 14339482 (2) Leukocytosis ICD Codes: D72.829 - Elevated white blood cell count, unspecified SNOMED: 185792030, 694575405 (3) Constipation ICD Codes: K59.00 - Constipation, unspecified SNOMED: 41913951 (4) Hematochezia ICD Codes: K92.1 - Melena SNOMED: 912578553 Assessment/Plan lactulose anusol HC add mineral oil stable H&H abx gi procedures on hold Subjective ROS Limited/Unobtainable: No Allergies: Coded Allergies: SULFA (SULFONAMIDE ANTIBIOTICS) (Verified Allergy, Unknown, 10/12/15) Subjective still has rectal bleed but better +BM Objective Last 24 Hour Vital Signs Date Time Temp Pulse Resp B/P (MAP) Pulse Ox O2 Delivery O2 Flow Rate FiO2 10/01/17 04:00 84 10/01/17 04:00 97.9 16 16 109/59 95 Room Air 10/01/17 00:00 97.9 83 16 100/52 90 Room Air 10/01/17 00:00 86 09/30/17 20:13 93/47 09/30/17 20:00 77 09/30/17 20:00 97.9 78 18 102/49 90 Room Air 09/30/17 16:00 98.1 73 18 98/53 91 Room Air 09/30/17 16:00 73 09/30/17 12:00 89 09/30/17 12:00 98.2 82 20 100/57 92 Room Air 09/30/17 08:00 80 09/30/17 08:00 97.2 81 20 85/35 92 Room Air Height (Feet): 4 Height (Inches): 9.00 Weight (Pounds): 94 General Appearance: alert EENT: normal ENT inspection Neck: supple Cardiovascular: normal rate Respiratory/Chest: lungs clear Abdomen: normal bowel sounds, non tender, soft Extremities: non-tender RIKKI GUERRA Oct 01, 2017 07:35
[2017-10-01] MEDS ORDERED: Mineral Oil 30ml ud ORAL ONE (07:45)
[2017-10-01 08:33] VITALS: BP 98/61
[2017-10-01 08:34] LABS: MEAN CORPUSCULAR HEMOGLOBIN 34.5 PG (27.0-31.0); MEAN CORPUSCULAR HGB CONC 34.7 G/DL (32.0-36.0); MEAN CORPUSCULAR VOLUME 100 FL (80-99); MEAN PLATELET VOLUME 14.9 FL (6.5-10.1); PLATELET COUNT 35 K/UL (150-450); RED BLOOD COUNT 3.45 M/UL (4.20-5.40); RED CELL DISTRIBUTION WIDTH 12.8 % (11.6-14.8)
[2017-10-01 08:43] LABS: WHITE BLOOD COUNT 28.4 K/UL (4.8-10.8)
[2017-10-01 08:53] LABS: ANION GAP 11 mmol/L (5-15); CALCIUM 8.8 MG/DL (8.5-10.1); CARBON DIOXIDE 21 MMOL/L (21-32); CHLORIDE 114 MMOL/L (98-107); CREATININE 1.3 MG/DL (0.55-1.30); SODIUM 145 MMOL/L (136-145)
[2017-10-01] MEDS: Escitalopram Oxalate 5mg tab ORAL SCH (09:16)
[2017-10-01] MEDS: BuPROPion 75mg Tab ORAL SCH (09:16)
[2017-10-01] MEDS: Lactulose 10gm/15ml UDC ORAL SCH ×3 (09:16→17:35)
[2017-10-01] MEDS: Sinemet 25/100 tab ORAL SCH ×2 (09:17→17:55)
[2017-10-01] MEDS: Miralax 17gm pkt ORAL SCH ×3 (09:17→21:00)
[2017-10-01] MEDS: Pantoprazole Inj IVP SCH (09:18)
[2017-10-01] MEDS: Memantine 10mg tab ORAL SCH ×2 (09:19→17:55)
[2017-10-01] MEDS: Docusate 100mg cap ORAL SCH ×3 (09:19→17:35)
[2017-10-01 10:52] LABS: BAND NEUTROPHILS % (MANUAL) 0 % (0-8); BASOPHILS % (MANUAL) 0 % (0-2); EOSINOPHILS % (MANUAL) 0 % (0-3); LYMPHOCYTES % (MANUAL) 6 % (20-45); NEUTROPHILS % (MANUAL) 57 % (45-75); PLATELET ESTIMATE DECREASED; PLATELET MORPHOLOGY NORMAL; TOTAL CELLS COUNTED 100
[2017-10-01 10:53] LABS: ANISOCYTOSIS 1+
--- NOTE | 2017-10-01 10:56 | Diagnostic Imaging Report ---
Indication: Pain Comparison: 03/17/2011 Findings: Single view of the chest is obtained. Exam is suboptimal secondary to patient rotation. Cardiac size is mildly enlarged. Pulmonary vasculature appears normal. Lungs are grossly clear. Again noted is some tortuosity of the thoracic aorta. Impression: Mild cardiomegaly. No definite acute pneumonitis or failure.
[2017-10-01 11:34] VITALS: BP 85/52
[2017-10-01] MEDS: DEXTROMETHORPHAN ORAL SCH ×5 (13:52→22:00)
[2017-10-01] MEDS ORDERED: DEXTROMETHORPHAN NG SCH (14:00)
[2017-10-01 15:49] VITALS: BP 133/65
--- NOTE | 2017-10-01 15:56 | Infectious Diseases Prog Note ---
Assessment/Plan Assessment/Plan A) 1) sepsis, leukocytosis, proctitis, fecal impaction 2) ua benign, check chest x-ray, patient has diarrhea but on lactulose 3) pmh noted 4) allergies - sulfa P) 1) zosyn and flagyl 2) check bc, labs and chest x-ray 3) orders entered 4) continue treatment per Dr. Moody and GI 5) d/w RN Subjective Constitutional: Denies: fever Respiratory: Denies: shortness of breath Cardiovascular: Denies: chest pain Gastrointestinal/Abdominal: Denies: nausea, vomiting, diarrhea Psychiatric: Denies: depression Skin: Denies: rash Hematologic: Denies: bleeding Musculoskeletal: Denies: pain Allergies: Coded Allergies: SULFA (SULFONAMIDE ANTIBIOTICS) (Verified Allergy, Unknown, 10/12/15) Objective Vital Signs Last 24 Hour Vital Signs Date Time Temp Pulse Resp B/P (MAP) Pulse Ox O2 Delivery O2 Flow Rate FiO2 10/01/17 15:49 97.7 78 18 133/65 96 Room Air 10/01/17 12:00 68 10/01/17 11:34 97.7 78 18 85/52 94 Room Air 10/01/17 08:33 96.3 91 18 98/61 93 Room Air 10/01/17 08:00 91 10/01/17 04:00 84 10/01/17 04:00 97.9 16 16 109/59 95 Room Air 10/01/17 00:00 97.9 83 16 100/52 90 Room Air 10/01/17 00:00 86 09/30/17 20:13 93/47 09/30/17 20:00 77 09/30/17 20:00 97.9 78 18 102/49 90 Room Air 09/30/17 16:00 98.1 73 18 98/53 91 Room Air 09/30/17 16:00 73 Height (Feet): 4 Height (Inches): 9.00 Weight (Pounds): 94 HEENT: normocephalic, atraumatic, anicteric Respiratory/Chest: lungs clear, normal breath sounds, no respiratory distress Cardiovascular: normal rate, regular rhythm, no JVD Abdomen: normal bowel sounds, soft, non tender, no organomegaly Extremities: no cyanosis Skin: no rash Neurologic/Psychiatric: 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 Complete 09/29/17 16:47 Rectum VRE Culture - Final NO VANCOMYCIN RESISTANT ENTEROCOCCUS ... Complete Laboratory Tests Test 10/01/17 07:57 White Blood Count 28.4 K/UL (4.8-10.8) *H Red Blood Count 3.45 M/UL (4.20-5.40) L Hemoglobin 11.9 G/DL (12.0-16.0) L Hematocrit 34.4 % (37.0-47.0) L Mean Corpuscular Volume 100 FL (80-99) H Mean Corpuscular Hemoglobin 34.5 PG (27.0-31.0) H Mean Corpuscular Hemoglobin Concent 34.7 G/DL (32.0-36.0) Red Cell Distribution Width 12.8 % (11.6-14.8) Platelet Count 35 K/UL (150-450) L Mean Platelet Volume 14.9 FL (6.5-10.1) H Neutrophils (%) (Auto) % (45.0-75.0) Lymphocytes (%) (Auto) % (20.0-45.0) Monocytes (%) (Auto) % (1.0-10.0) Eosinophils (%) (Auto) % (0.0-3.0) Basophils (%) (Auto) % (0.0-2.0) Differential Total Cells Counted 100 Neutrophils % (Manual) 57 % (45-75) Lymphocytes % (Manual) 6 % (20-45) L Monocytes % (Manual) 37 % (1-10) H Eosinophils % (Manual) 0 % (0-3) Basophils % (Manual) 0 % (0-2) Band Neutrophils 0 % (0-8) Platelet Estimate Decreased L Platelet Morphology Normal Anisocytosis 1+ Sodium Level 145 MMOL/L (136-145) Potassium Level 4.0 MMOL/L (3.5-5.1) Chloride Level 114 MMOL/L (98-107) H Carbon Dioxide Level 21 MMOL/L (21-32) Anion Gap 11 mmol/L (5-15) Blood Urea Nitrogen 37 mg/dL (7-18) H Creatinine 1.3 MG/DL (0.55-1.30) Estimat Glomerular Filtration Rate mL/min (>60) Glucose Level 160 MG/DL (74-106) H Calcium Level 8.8 MG/DL (8.5-10.1) Current Medications Medications (Trade) Dose Ordered Sig/Anabella Route PRN Reason Start Time Stop Time Status Last Admin Dose Admin Artificial Tears (Lacri-Lube) 1 applic BEDTIME LEFT EYE 09/29/17 22:00 10/29/17 21:59 09/30/17 20:12 Bupropion HCl (Wellbutrin) 75 mg DAILY ORAL 10/01/17 09:00 10/31/17 08:59 10/01/17 09:16 Carbidopa/Levodopa (Sinemet 25/100) 1 ea BID ORAL 09/30/17 09:00 10/30/17 08:59 10/01/17 09:17 Docusate Sodium (Colace) 100 mg THREE TIMES A DAY ORAL 09/30/17 09:00 10/30/17 08:59 10/01/17 09:19 Escitalopram Oxalate (Lexapro) 5 mg DAILY ORAL 09/30/17 09:00 10/30/17 08:59 10/01/17 09:16 Hydrocortisone (Anusol HC) 1 applic TWICE A DAY RECTAL 09/30/17 18:00 10/30/17 17:59 10/01/17 09:24 Lactulose (Cephulac) 10 gm THREE TIMES A DAY ORAL 09/30/17 13:00 10/30/17 12:59 10/01/17 09:16 Lisinopril (Zestril) 30 mg BEDTIME ORAL 09/29/17 22:00 10/29/17 21:59 Memantine (Namenda) 10 mg BID ORAL 09/30/17 09:00 10/30/17 08:59 10/01/17 09:19 Metronidazole (Flagyl) 500 mg EVERY 8 HOURS ORAL 10/01/17 22:00 10/07/17 17:59 UNV Pantoprazole (Protonix) 40 mg DAILY IVP 09/30/17 09:00 10/30/17 08:59 10/01/17 09:18 Patient Own Medication (Patient's Own Med) 1 ea Q2H ORAL 10/01/17 14:00 10/31/17 13:59 10/01/17 13:52 Piperacillin/ Tazobactam/ Dextrose 50 ml @ 12.5 mls/hr Q12HR@0400,1600 IVPB 09/30/17 04:00 10/07/17 03:59 10/01/17 15:11 Polyethylene Glycol (Miralax) 17 gm BEDTIME ORAL 09/30/17 21:00 10/30/17 20:59 09/30/17 20:13 Polyethylene Glycol (Miralax) 17 gm BID ORAL 09/30/17 09:00 10/30/17 08:59 10/01/17 09:17 Quetiapine Fumarate (SEROquel) 25 mg DAILY ORAL 09/30/17 09:00 10/30/17 08:59 10/01/17 09:17 Quetiapine Fumarate (SEROquel) 150 mg BEDTIME ORAL 09/29/17 22:00 10/29/17 21:59 09/30/17 20:12 Sodium Chloride 1,000 ml @ 75 mls/hr [id number] IV 09/30/17 16:30 10/30/17 16:29 10/01/17 03:07 ERIKA FRAIRE Oct 01, 2017 15:56
--- NOTE | 2017-10-01 16:28 | Geriatric Progress Note ---
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 Hopefully monocytosis is reactive given patient's relatively non- toxic appearance. Proctitis, fecal impaction. Continue bowel regimen. Continue empirical zosyn and Flagyl. C&S blood NGTD. Volume depletion improving with IV hydration. Bps now in usual range. Chronic c/o LLQ pain. Will only use prn acetaminophen for now. Discussed with: patient, hospital staff, other - caregiver Subjective Interval Events Patient with c/o LLQ pain which is compatible with her longstanding sxs. Per caregiver ate lunch fairly well. Continues to have stools, but not as profuse as before. Staff notes IAD erythema in perirectal area, requests use of Calazyme to area. No fever, bps improved. Labs notable for progressive monocytosis of unclear etiology. Constitutional: Reports: pain - chronic LLQ as per baseline Respiratory: Denies: cough, orthopnea, shortness of breath Cardiovascular: Denies: chest pain Gastrointestinal/Abdominal: Denies: vomiting Genitourinary: Denies: dysuria Geriatric Geriatric Last 24 Hour Vital Signs Date Time Temp Pulse Resp B/P (MAP) Pulse Ox O2 Delivery O2 Flow Rate FiO2 10/01/17 15:49 97.7 78 18 133/65 96 Room Air 10/01/17 12:00 68 10/01/17 11:34 97.7 78 18 85/52 94 Room Air 10/01/17 08:33 96.3 91 18 98/61 93 Room Air 10/01/17 08:00 91 10/01/17 04:00 84 10/01/17 04:00 97.9 16 16 109/59 95 Room Air 10/01/17 00:00 97.9 83 16 100/52 90 Room Air 10/01/17 00:00 86 09/30/17 20:13 93/47 09/30/17 20:00 77 09/30/17 20:00 97.9 78 18 102/49 90 Room Air Intake and Output 10/01/17 10/02/17 18:59 06:59 Intake Total 1165 ml Balance 1165 ml Intake Oral 490 ml IV Total 675 ml # Voids 3 # Bowel Movements 4 Laboratory Tests Test 10/01/17 07:57 White Blood Count 28.4 K/UL (4.8-10.8) *H Red Blood Count 3.45 M/UL (4.20-5.40) L Hemoglobin 11.9 G/DL (12.0-16.0) L Hematocrit 34.4 % (37.0-47.0) L Mean Corpuscular Volume 100 FL (80-99) H Mean Corpuscular Hemoglobin 34.5 PG (27.0-31.0) H Mean Corpuscular Hemoglobin Concent 34.7 G/DL (32.0-36.0) Red Cell Distribution Width 12.8 % (11.6-14.8) Platelet Count 35 K/UL (150-450) L Mean Platelet Volume 14.9 FL (6.5-10.1) H Neutrophils (%) (Auto) % (45.0-75.0) Lymphocytes (%) (Auto) % (20.0-45.0) Monocytes (%) (Auto) % (1.0-10.0) Eosinophils (%) (Auto) % (0.0-3.0) Basophils (%) (Auto) % (0.0-2.0) Differential Total Cells Counted 100 Neutrophils % (Manual) 57 % (45-75) Lymphocytes % (Manual) 6 % (20-45) L Monocytes % (Manual) 37 % (1-10) H Eosinophils % (Manual) 0 % (0-3) Basophils % (Manual) 0 % (0-2) Band Neutrophils 0 % (0-8) Platelet Estimate Decreased L Platelet Morphology Normal Anisocytosis 1+ Sodium Level 145 MMOL/L (136-145) Potassium Level 4.0 MMOL/L (3.5-5.1) Chloride Level 114 MMOL/L (98-107) H Carbon Dioxide Level 21 MMOL/L (21-32) Anion Gap 11 mmol/L (5-15) Blood Urea Nitrogen 37 mg/dL (7-18) H Creatinine 1.3 MG/DL (0.55-1.30) Estimat Glomerular Filtration Rate mL/min (>60) Glucose Level 160 MG/DL (74-106) H Calcium Level 8.8 MG/DL (8.5-10.1) Current Medications Medications (Trade) Dose Ordered Sig/Anabella Route PRN Reason Start Time Stop Time Status Last Admin Dose Admin Artificial Tears (Lacri-Lube) 1 applic BEDTIME LEFT EYE 09/29/17 22:00 10/29/17 21:59 09/30/17 20:12 Bupropion HCl (Wellbutrin) 75 mg DAILY ORAL 10/01/17 09:00 10/31/17 08:59 10/01/17 09:16 Carbidopa/Levodopa (Sinemet 25/100) 1 ea BID ORAL 09/30/17 09:00 10/30/17 08:59 10/01/17 09:17 Docusate Sodium (Colace) 100 mg THREE TIMES A DAY ORAL 09/30/17 09:00 10/30/17 08:59 10/01/17 09:19 Escitalopram Oxalate (Lexapro) 5 mg DAILY ORAL 09/30/17 09:00 10/30/17 08:59 10/01/17 09:16 Hydrocortisone (Anusol HC) 1 applic TWICE A DAY RECTAL 09/30/17 18:00 10/30/17 17:59 10/01/17 09:24 Lactulose (Cephulac) 10 gm THREE TIMES A DAY ORAL 09/30/17 13:00 10/30/17 12:59 10/01/17 09:16 Lisinopril (Zestril) 30 mg BEDTIME ORAL 09/29/17 22:00 10/29/17 21:59 Memantine (Namenda) 10 mg BID ORAL 09/30/17 09:00 10/30/17 08:59 10/01/17 09:19 Metronidazole (Flagyl) 500 mg EVERY 8 HOURS ORAL 10/01/17 22:00 10/07/17 17:59 Pantoprazole (Protonix) 40 mg DAILY IVP 09/30/17 09:00 10/30/17 08:59 10/01/17 09:18 Patient Own Medication (Patient's Own Med) 1 ea Q2H ORAL 10/01/17 14:00 10/31/17 13:59 10/01/17 16:00 Piperacillin/ Tazobactam/ Dextrose 50 ml @ 12.5 mls/hr Q12HR@0400,1600 IVPB 09/30/17 04:00 10/07/17 03:59 10/01/17 15:11 Polyethylene Glycol (Miralax) 17 gm BEDTIME ORAL 09/30/17 21:00 10/30/17 20:59 09/30/17 20:13 Polyethylene Glycol (Miralax) 17 gm BID ORAL 09/30/17 09:00 10/30/17 08:59 10/01/17 09:17 Quetiapine Fumarate (SEROquel) 25 mg DAILY ORAL 09/30/17 09:00 10/30/17 08:59 10/01/17 09:17 Quetiapine Fumarate (SEROquel) 150 mg BEDTIME ORAL 09/29/17 22:00 10/29/17 21:59 09/30/17 20:12 Sodium Chloride 1,000 ml @ 75 mls/hr [id number] IV 09/30/17 16:30 10/30/17 16:29 10/01/17 03:07 Height (Feet): 4 Height (Inches): 9.00 Weight (Pounds): 94 General Appearance: alert, non-toxic, other - mentation, affect comparable to baseline. Head: normocephalic Eyes: bilateral anicteric ENT: normal voice Neck: full range of motion, no mass Respiratory: lungs clear Cardiovascular: regular rate, rhythm Gastrointestinal: normal bowel sounds, soft, no mass, no organomegaly, tenderness - tenderness in LLQ comparable to baseline Rectal: other - dark brown stool Musculoskeletal: no calf tenderness Edema: no edema noted Generalized Neurologic: no new focality Skin: other - IAD erythema in perirectal area CASSIE ROA Oct 01, 2017 16:28
[2017-10-01 20:27] VITALS: BP 132/73
[2017-10-01] MEDS: Lacri-Lube Opth Oint 3.5gm LEFT EYE SCH (21:30)
[2017-10-01] MEDS: Lisinopril 10mg tab ORAL SCH (21:37)
[2017-10-02] VITALS (7 sets, daily range): BP systolic 90–148; BP diastolic 45–95
[2017-10-02] MEDS: DEXTROMETHORPHAN ORAL SCH ×11 (02:00→22:00)
--- NOTE | 2017-10-02 02:00 | Consultation ---
DATE OF CONSULTATION: 10/01/2017 INFECTIOUS DISEASE CONSULTATION ATTENDING PHYSICIAN: Mike Moody M.D. REASON FOR CONSULTATION: Possible sepsis with severe leukocytosis and fecal impaction. CHIEF COMPLAINT COMING IN HOSPITAL: The patient's chief complaint coming in the hospital hypotension and gastrointestinal bleed. HISTORY OF PRESENT ILLNESS: This is a pleasant 87-year-old female who comes into [facility] with rectal bleeding. The patient has significant leukocytosis. A CT scan of the abdomen and pelvis showed proctitis and massive rectal impaction. There is no mention of bowel obstruction at this time. The patient had heart rate of over 90 and she came in with relatively low blood pressure and there was question the patient was septic at this time. Blood pressure remains in the 80s at this time. Unclear what her baseline blood pressure is. Infectious disease consultation was requested for antibiotic management. Blood cultures are negative to date. The patient currently is on Zosyn and Flagyl. Urinalysis unremarkable for UTI. The patient has diarrhea, but is getting lactulose for the fecal impaction. Case was discussed with Dr. Moody. MAR was noted. Orders were noted. Notes were reviewed. Case was discussed with RN, the patient, and the patient's caregiver at the bedside. PAST MEDICAL HISTORY: The patient's past medical history includes history of the following. The patient has past medical history of CVA. She has history of left hemiparesis, history of bilateral knee contractures, hypertension, pseudobulbar effect. She has history of chronic pain syndrome, depression, anxiety, agitation, psychosis, Parkinson's, and thrombocytopenia. She also has possible history of hyperlipidemia. She is on a statin at this time though I am not clear about that. MEDICATIONS: Upon reviewing the MAR, she is on the following medications. She is on Wellbutrin, MiraLAX, Flagyl, Anusol, hydrocortisone. She is on Cephulac, Colace, Lexapro, Namenda, pantoprazole, polyethylene, piperacillin/tazobactam, lisinopril, artificial tears, and quetiapine. Outside medications noted and reconciliated. ALLERGIES: Include sulfa drugs. SOCIAL HISTORY: Negative for smoking, alcohol, or drug abuse. FAMILY HISTORY: Noncontributory. No mention of exposure to tuberculosis or cancer. REVIEW OF SYSTEMS: CONSTITUTIONAL: The patient denies generalized weakness or fatigue. She has relatively low blood pressure. She has no fevers, no chills. No night sweats or weight loss. HEAD AND NECK: No head pain, neck pain, thrush, or dysphagia. CARDIAC: No chest pain or palpitations. GASTROINTESTINAL: She came in with rectal bleeding. She has some abdominal discomfort. No nausea or vomiting at this time. She does have loose stools and diarrhea, but she is on lactulose. PULMONARY: No congestion or shortness of breath. She has no hemoptysis or secretions. SKIN: No rash or itching. EXTREMITIES: No extremity pain. NEUROLOGICAL: No seizures. GENITOURINARY: She has no [place]. Also, no dysuria or frequency. PHYSICAL EXAMINATION: GENERAL: The patient is alert, responsive, in no acute distress, does not look septic but she looks weak. VITAL SIGNS: temperature 97.9, pulse 78, respiratory rate 18, blood pressure 85/52, and saturation 94% on room air. HEAD AND NECK: Oral exam, no thrush. Eye exam, no icterus. Normocephalic. No facial droop. No neck stiffness. HEART: Regular. No gallop or murmur. LUNGS: Clear bilaterally. No rhonchi. No rales. ABDOMEN: Soft. Positive bowel sounds. Nontender. May be some discomfort, but no rebound. SKIN: No rash. MUSCULOSKELETAL: No effusion. Legs are without cellulitis. PERIPHERAL VASCULAR: No cyanosis or gangrene. She has some contractures of lower extremities. RECTAL: Deferred. GENITOURINARY: She has no [place]. LINES: IV sites are without phlebitis. NEUROLOGIC: Alert and responsive. LABORATORY AND DIAGNOSTIC DATA: Laboratory data as follows. Urinalysis was 0-2 white blood cells. White count 28.4, hemoglobin , and platelet count 35,000. Creatinine is 1.3. LFTs were noted. White count is as high as 28.4 and hemoglobin 11.9. Blood cultures are negative to date. MRSA and VRE screenings are negative. Chest x-ray shows no acute cardiopulmonary disease. No definite pneumonitis or failure. CT scan of the abdomen and pelvis showed severe fecal impaction with associated proctitis and thickening and inflammation of the rectal wall, also large hiatal hernia. It did show diverticulosis, but no diverticulitis mentioned. ASSESSMENT AND PLAN: 1. The patient has severe leukocytosis, possible sepsis, low blood pressure, and heart rate has been over 90. I agree with Zosyn and Flagyl for anaerobic and gram-negative coverages especially in view of her proctitis. She does have diarrhea, but she is on lactulose and she is on Colace I believe also. She is on polyethylene glycol, MiraLAX, Colace. It is unclear if she has Clostridium difficile is also a possibility, however, really cannot check for it at this time because of the medications causing the diarrhea to help with the fecal impaction. At this time, I will continue Zosyn and Flagyl to cover her proctitis and possible sepsis. Gastroenterology is following. The patient does have history of gastrointestinal bleed it looks like. Check followup labs, check final cultures, and the patient is being also treated for Clostridium difficile with Flagyl. 2. The patient has history of hypertension. Blood pressure treatment per Dr. Moody. 3. Gastrointestinal bleed. 4. History of bilateral leg contractures. 5. Cerebrovascular accident. 6. Left hemiparesis. 7. Chest x-ray does not show any pneumonia. 8. Urinalysis is benign. 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 11. Chronic pain syndrome. 12. History of depression. 13. Anxiety. 14. Agitation. 15. Psychosis. 16. Parkinson's. 17. Thrombocytopenia. 18. Anemia. 19. Allergy to sulfa. 20. Social history is negative. 21. MAR was noted. 22. Family History noncontributory. 23. Continue treatment per Dr. Moody and Gastroenterology. 24. Skin care protocol. 25. Case discussed with Dr. Moody. 26. Case discussed with RN. Frankie Griffith M.D. DR: MARI JOB#: [id number] CC: MIGEL
[2017-10-02] MEDS: Zosyn 3.375gm/50ml Premix 50 ML IVPB SCH (04:13)
[2017-10-02] MEDS: metroNIDAZOLE 500mg tab ORAL SCH ×3 (06:22→22:23)
[2017-10-02 08:04] LABS: MEAN CORPUSCULAR HEMOGLOBIN 34.1 PG (27.0-31.0); MEAN CORPUSCULAR HGB CONC 34.2 G/DL (32.0-36.0); MEAN CORPUSCULAR VOLUME 100 FL (80-99); MEAN PLATELET VOLUME 15.9 FL (6.5-10.1); PLATELET COUNT 31 K/UL (150-450); RED CELL DISTRIBUTION WIDTH 13.2 % (11.6-14.8)
[2017-10-02 08:15] LABS: WHITE BLOOD COUNT 23.6 K/UL (4.8-10.8)
[2017-10-02 08:21] LABS: ALANINE AMINOTRANSFERASE 34 U/L (12-78); ALBUMIN/GLOBULIN RATIO 1.3 (1.0-2.7); ANION GAP 13 mmol/L (5-15); ASPARTATE AMINO TRANSFERASE 28 U/L (15-37); CALCIUM 8.8 MG/DL (8.5-10.1); CARBON DIOXIDE 19 MMOL/L (21-32); CHLORIDE 118 MMOL/L (98-107); LACTATE DEHYDROGENASE 209 U/L (81-234); MAGNESIUM 2.3 MG/DL (1.8-2.4); POTASSIUM 3.6 MMOL/L (3.5-5.1); SODIUM 150 MMOL/L (136-145); TOTAL PROTEIN 5.2 G/DL (6.4-8.2)
[2017-10-02] MEDS: Escitalopram Oxalate 5mg tab ORAL SCH (08:56)
[2017-10-02] MEDS: Sinemet 25/100 tab ORAL SCH ×2 (08:56→18:05)
[2017-10-02] MEDS: Lactulose 10gm/15ml UDC ORAL SCH ×2 (08:56→12:44)
[2017-10-02] MEDS: Miralax 17gm pkt ORAL SCH ×2 (08:56→21:38)
[2017-10-02] MEDS: BuPROPion 75mg Tab ORAL SCH (08:56)
[2017-10-02] MEDS: Docusate 100mg cap ORAL SCH ×3 (08:58→18:05)
[2017-10-02] MEDS: Memantine 10mg tab ORAL SCH ×2 (08:58→18:05)
[2017-10-02 10:01] LABS: BAND NEUTROPHILS % (MANUAL) 4 % (0-8); BASOPHILS % (MANUAL) 0 % (0-2); EOSINOPHILS % (MANUAL) 0 % (0-3); LYMPHOCYTES % (MANUAL) 5 % (20-45); MACROCYTES 1+; NEUTROPHILS % (MANUAL) 62 % (45-75); PLATELET ESTIMATE DECREASED; PLATELET MORPHOLOGY NORMAL; TOTAL CELLS COUNTED 100
[2017-10-02] MEDS: Pantoprazole Inj IVP SCH (10:10)
--- NOTE | 2017-10-02 10:18 | GI Progress Note ---
Assessment/Plan Problems: (1) Fecal impaction in rectum ICD Codes: K56.41 - Fecal impaction SNOMED: 97186253 (2) Constipation ICD Codes: K59.00 - Constipation, unspecified SNOMED: 76348069 (3) Hematochezia ICD Codes: K92.1 - Melena SNOMED: 356851655 Status: progressing Status Narrative Discussed with Dr. Solares. Assessment/Plan KUB reviewed >> No definite evidence of increased rectal feces. dc lactulose >> colace anusol HC mineral oil PO prn stable H&H, prn transfusions abx gi procedures on hold The patient was seen and examined at bedside and all new and available data was reviewed in the patients chart. I agree with the above findings, impression and plan. (Patient seen earlier today. Signature stamp does not reflect patient encounter time.). - Gal Solares MD Subjective Subjective abdominal pain/tenderness present Objective Last 24 Hour Vital Signs Date Time Temp Pulse Resp B/P (MAP) Pulse Ox O2 Delivery O2 Flow Rate FiO2 10/02/17 08:51 98.4 92 19 125/70 Room Air 10/02/17 04:00 97.9 70 21 100/50 95 Room Air 10/02/17 03:40 68 10/02/17 00:48 98.1 71 18 90/45 Room Air 10/02/17 00:00 70 10/01/17 21:37 145/83 10/01/17 20:27 98.2 85 20 132/73 94 Room Air 10/01/17 20:00 86 10/01/17 16:00 80 10/01/17 15:49 97.7 78 18 133/65 96 Room Air 10/01/17 12:00 68 10/01/17 11:34 97.7 78 18 85/52 94 Room Air Laboratory Tests Test 10/02/17 07:30 White Blood Count 23.6 K/UL (4.8-10.8) *H Red Blood Count 3.40 M/UL (4.20-5.40) L Hemoglobin 11.6 G/DL (12.0-16.0) L Hematocrit 33.9 % (37.0-47.0) L Mean Corpuscular Volume 100 FL (80-99) H Mean Corpuscular Hemoglobin 34.1 PG (27.0-31.0) H Mean Corpuscular Hemoglobin Concent 34.2 G/DL (32.0-36.0) Red Cell Distribution Width 13.2 % (11.6-14.8) Platelet Count 31 K/UL (150-450) L Mean Platelet Volume 15.9 FL (6.5-10.1) H Neutrophils (%) (Auto) % (45.0-75.0) Lymphocytes (%) (Auto) % (20.0-45.0) Monocytes (%) (Auto) % (1.0-10.0) Eosinophils (%) (Auto) % (0.0-3.0) Basophils (%) (Auto) % (0.0-2.0) Neutrophils % (Manual) Pending Lymphocytes % (Manual) Pending Platelet Estimate Pending Platelet Morphology Pending Sodium Level 150 MMOL/L (136-145) H Potassium Level 3.6 MMOL/L (3.5-5.1) Chloride Level 118 MMOL/L (98-107) H Carbon Dioxide Level 19 MMOL/L (21-32) L Anion Gap 13 mmol/L (5-15) Blood Urea Nitrogen 28 mg/dL (7-18) H Creatinine 1.0 MG/DL (0.55-1.30) Estimat Glomerular Filtration Rate mL/min (>60) Glucose Level 140 MG/DL (74-106) H Calcium Level 8.8 MG/DL (8.5-10.1) Magnesium Level 2.3 MG/DL (1.8-2.4) Total Bilirubin 0.7 MG/DL (0.2-1.0) Aspartate Amino Transf (AST/SGOT) 28 U/L (15-37) Alanine Aminotransferase (ALT/SGPT) 34 U/L (12-78) Alkaline Phosphatase 76 U/L (46-116) Lactate Dehydrogenase 209 U/L (81-234) Total Protein 5.2 G/DL (6.4-8.2) L Albumin 2.9 G/DL (3.4-5.0) L Globulin 2.3 g/dL Albumin/Globulin Ratio 1.3 (1.0-2.7) Height (Feet): 4 Height (Inches): 9.00 Weight (Pounds): 94 General Appearance: no apparent distress, alert, thin Cardiovascular: normal rate Respiratory/Chest: normal breath sounds, no respiratory distress Abdominal Exam: normal bowel sounds, non tender, tender Extremities: non-tender Miranda Sawyer N.P. Oct 02, 2017 10:18 RIKKI SOLARES Oct 03, 2017 14:17
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
--- NOTE | 2017-10-02 13:58 | Diagnostic Imaging Report ---
Indication: Abdominal pain Technique: Supine view of the abdomen Comparison: none Findings: Bowel gas pattern is unremarkable. No unusual masses. No definite evidence of increased rectal feces. Calcification in the pelvis likely reflect granulomatous nodes or degenerated fibroids Impression: No acute process
[2017-10-02] MEDS: Piperacillin/Tazobactam 3.375 GM in D5W 55 ML IVPB SCH ×2 (14:13→22:23)
--- NOTE | 2017-10-02 21:16 | Geriatric Progress Note ---
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 Monitor for resolution. IAD with skin breakdown, tx ongoing. Fecal impaction likely resolved, but proctitis on tx. mobilize as tolerated. Monitor intake. Change IVF and decrease rate. Discussed with: patient, hospital staff, other - caregiver Subjective Interval Events Patient more alert, c/o irritation of buttocks associated with IAD. Intake mediocre. Leukocytosis slightly better, with monocytosis also slightly better. Na elevated. Having frequent watery stools, likely due to laxative therapy. If persistent, may need to check for C diff. KUB suggests resolution of fecal impaction. Constitutional: Denies: chills, sweats, fever Respiratory: Denies: cough, shortness of breath Cardiovascular: Denies: chest pain, palpitations Gastrointestinal/Abdominal: Reports: diarrhea, Denies: vomiting Genitourinary: Denies: dysuria Geriatric Geriatric Last 24 Hour Vital Signs Date Time Temp Pulse Resp B/P (MAP) Pulse Ox O2 Delivery O2 Flow Rate FiO2 10/02/17 20:54 98.1 100 18 106/55 92 Room Air 10/02/17 16:00 65 10/02/17 16:00 98.6 80 18 146/95 93 Room Air 10/02/17 12:00 97.8 80 18 125/53 Nasal Cannula 2.0 10/02/17 12:00 76 10/02/17 08:51 98.4 92 19 125/70 Room Air 10/02/17 08:00 76 10/02/17 04:00 97.9 70 21 100/50 95 Room Air 10/02/17 03:40 68 10/02/17 00:48 98.1 71 18 90/45 Room Air 10/02/17 00:00 70 10/01/17 21:37 145/83 Intake and Output 10/02/17 10/03/17 19:00 07:00 Intake Total 1315.00 ml Balance 1315.00 ml Intake Oral 360 ml IV Total 955.00 ml # Voids 2 # Bowel Movements 6 Laboratory Tests Test 10/02/17 07:30 White Blood Count 23.6 K/UL (4.8-10.8) *H Red Blood Count 3.40 M/UL (4.20-5.40) L Hemoglobin 11.6 G/DL (12.0-16.0) L Hematocrit 33.9 % (37.0-47.0) L Mean Corpuscular Volume 100 FL (80-99) H Mean Corpuscular Hemoglobin 34.1 PG (27.0-31.0) H Mean Corpuscular Hemoglobin Concent 34.2 G/DL (32.0-36.0) Red Cell Distribution Width 13.2 % (11.6-14.8) Platelet Count 31 K/UL (150-450) L Mean Platelet Volume 15.9 FL (6.5-10.1) H Neutrophils (%) (Auto) % (45.0-75.0) Lymphocytes (%) (Auto) % (20.0-45.0) Monocytes (%) (Auto) % (1.0-10.0) Eosinophils (%) (Auto) % (0.0-3.0) Basophils (%) (Auto) % (0.0-2.0) Differential Total Cells Counted 100 Neutrophils % (Manual) 62 % (45-75) Lymphocytes % (Manual) 5 % (20-45) L Monocytes % (Manual) 29 % (1-10) H Eosinophils % (Manual) 0 % (0-3) Basophils % (Manual) 0 % (0-2) Band Neutrophils 4 % (0-8) Platelet Estimate Decreased L Platelet Morphology Normal Macrocytosis 1+ Sodium Level 150 MMOL/L (136-145) H Potassium Level 3.6 MMOL/L (3.5-5.1) Chloride Level 118 MMOL/L (98-107) H Carbon Dioxide Level 19 MMOL/L (21-32) L Anion Gap 13 mmol/L (5-15) Blood Urea Nitrogen 28 mg/dL (7-18) H Creatinine 1.0 MG/DL (0.55-1.30) Estimat Glomerular Filtration Rate mL/min (>60) Glucose Level 140 MG/DL (74-106) H Calcium Level 8.8 MG/DL (8.5-10.1) Magnesium Level 2.3 MG/DL (1.8-2.4) Total Bilirubin 0.7 MG/DL (0.2-1.0) Aspartate Amino Transf (AST/SGOT) 28 U/L (15-37) Alanine Aminotransferase (ALT/SGPT) 34 U/L (12-78) Alkaline Phosphatase 76 U/L (46-116) Lactate Dehydrogenase 209 U/L (81-234) Total Protein 5.2 G/DL (6.4-8.2) L Albumin 2.9 G/DL (3.4-5.0) L Globulin 2.3 g/dL Albumin/Globulin Ratio 1.3 (1.0-2.7) Current Medications Medications (Trade) Dose Ordered Sig/Anabella Route PRN Reason Start Time Stop Time Status Last Admin Dose Admin Acetaminophen (Tylenol) 650 mg Q6H PRN ORAL Mild Pain/Temp > 100.5 10/01/17 19:15 10/31/17 19:14 Artificial Tears (Lacri-Lube) 1 applic BEDTIME LEFT EYE 09/29/17 22:00 10/29/17 21:59 10/01/17 21:30 Bupropion HCl (Wellbutrin) 75 mg DAILY ORAL 10/01/17 09:00 10/31/17 08:59 10/02/17 08:56 Carbidopa/Levodopa (Sinemet 25/100) 1 ea BID ORAL 09/30/17 09:00 10/30/17 08:59 10/02/17 18:05 Docusate Sodium (Colace) 100 mg THREE TIMES A DAY ORAL 09/30/17 09:00 10/30/17 08:59 10/02/17 18:05 Escitalopram Oxalate (Lexapro) 5 mg DAILY ORAL 09/30/17 09:00 10/30/17 08:59 10/02/17 08:56 Hydrocortisone (Anusol HC) 1 applic TWICE A DAY RECTAL 09/30/17 18:00 10/30/17 17:59 10/02/17 18:04 Lisinopril (Zestril) 30 mg BEDTIME ORAL 09/29/17 22:00 10/29/17 21:59 10/01/17 21:37 Memantine (Namenda) 10 mg BID ORAL 09/30/17 09:00 10/30/17 08:59 10/02/17 18:05 Metronidazole (Flagyl) 500 mg EVERY 8 HOURS ORAL 10/01/17 22:00 10/07/17 17:59 10/02/17 14:13 Pantoprazole (Protonix) 40 mg DAILY IVP 09/30/17 09:00 10/30/17 08:59 10/02/17 10:10 Patient Own Medication (Patient's Own Med) 1 ea Q2H ORAL 10/01/17 14:00 10/31/17 13:59 10/02/17 18:04 Piperacillin Sod/ Tazobactam Sod 3.375 gm/Dextrose 55 ml @ 13.75 mls/ hr Q8HR IVPB 10/02/17 14:00 10/09/17 13:59 10/02/17 14:13 Polyethylene Glycol (Miralax) 17 gm BEDTIME ORAL 09/30/17 21:00 10/30/17 20:59 09/30/17 20:13 Polyethylene Glycol (Miralax) 17 gm QHS ORAL 10/03/17 21:00 10/30/17 08:59 Quetiapine Fumarate (SEROquel) 25 mg DAILY ORAL 09/30/17 09:00 10/30/17 08:59 10/02/17 08:56 Quetiapine Fumarate (SEROquel) 150 mg BEDTIME ORAL 09/29/17 22:00 10/29/17 21:59 10/01/17 21:30 Sodium Chloride 1,000 ml @ 75 mls/hr [id number] IV 09/30/17 16:30 10/30/17 16:29 10/02/17 06:30 Height (Feet): 4 Height (Inches): 9.00 Weight (Pounds): 94 CASSIE ROA Oct 02, 2017 21:16
[2017-10-02] MEDS: Lisinopril 10mg tab ORAL SCH (21:37)
[2017-10-02] MEDS: Lacri-Lube Opth Oint 3.5gm LEFT EYE SCH (21:38)
--- NOTE | 2017-10-02 22:14 | Infectious Diseases Prog Note ---
Assessment/Plan Assessment/Plan ASSESSMENT AND PLAN: 1. sepsis, proctitis, fecal impaction, leukocytosis - continue zosyn and flagyl for now - continue treatment per Dr. Moody and GI - watch labs 2. The patient has history of hypertension. Blood pressure treatment per Dr. Moody. 3. Gastrointestinal bleed. 4. History of bilateral leg contractures. 5. Cerebrovascular accident. 6. Left hemiparesis. 7. Chest x-ray does not show any pneumonia. 8. Urinalysis is benign. 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 11. Chronic pain syndrome. 12. History of depression. 13. Anxiety. 14. Agitation. 15. Psychosis. 16. Parkinson's. 17. Thrombocytopenia. 18. Anemia. 19. Allergy to sulfa. 20. Social history is negative. 21. MAR was noted. 22. Family History noncontributory. 23. Continue treatment per Dr. Moody and Gastroenterology. 24. Skin care protocol. 25. Case discussed with Dr. Moody. 26. Case discussed with RN. Subjective Constitutional: Reports: fatigue, Denies: fever HEENT: Denies: congestion Respiratory: Denies: shortness of breath Cardiovascular: Denies: chest pain Gastrointestinal/Abdominal: Reports: other - + abdominal pain, Denies: nausea, vomiting, diarrhea Neurologic: Denies: headache Psychiatric: Denies: depression Skin: Denies: rash Hematologic: Denies: bleeding Musculoskeletal: Denies: pain Allergies: Coded Allergies: SULFA (SULFONAMIDE ANTIBIOTICS) (Verified Allergy, Unknown, 10/12/15) Objective Vital Signs Last 24 Hour Vital Signs Date Time Temp Pulse Resp B/P (MAP) Pulse Ox O2 Delivery O2 Flow Rate FiO2 10/02/17 21:37 138/78 10/02/17 20:54 98.1 100 18 106/55 92 Room Air 10/02/17 20:00 98.4 89 24 148/67 92 Room Air 10/02/17 16:00 65 10/02/17 16:00 98.6 80 18 146/95 93 Room Air 10/02/17 12:00 97.8 80 18 125/53 Nasal Cannula 2.0 10/02/17 12:00 76 10/02/17 08:51 98.4 92 19 125/70 Room Air 10/02/17 08:00 76 10/02/17 04:00 97.9 70 21 100/50 95 Room Air 10/02/17 03:40 68 10/02/17 00:48 98.1 71 18 90/45 Room Air 10/02/17 00:00 70 Height (Feet): 4 Height (Inches): 9.00 Weight (Pounds): 94 General Appearance: no acute distress HEENT: normocephalic, atraumatic, anicteric, mucous membranes moist, EOMI, pharynx normal, supple, no JVD Respiratory/Chest: lungs clear, normal breath sounds, no respiratory distress, no accessory muscle use Cardiovascular: normal rate, regular rhythm, no gallop/murmur, no JVD Abdomen: normal bowel sounds, soft, non tender, no organomegaly, non distended Genitourinary: other - no pabon Extremities: no cyanosis Skin: no rash Neurologic/Psychiatric: fruit express agent II-XII grossly normal, alert, oriented x 3, responsive Lymphatic: no neck adenopathy Musculoskeletal: no effusion Objective chest x-ray - nad (reviewed) kub - f/u - nad CT abdomen and pelvis - c/w fecal impaction and proctitis (report noted) Microbiology Date/Time Source Procedure Growth Status 09/30/17 07:05 Blood Blood Culture - Preliminary NO GROWTH AFTER 24 HOURS Resulted 09/30/17 00:30 Blood Blood Culture - Preliminary NO GROWTH AFTER 48 HOURS Resulted Laboratory Tests Test 10/02/17 07:30 White Blood Count 23.6 K/UL (4.8-10.8) *H Red Blood Count 3.40 M/UL (4.20-5.40) L Hemoglobin 11.6 G/DL (12.0-16.0) L Hematocrit 33.9 % (37.0-47.0) L Mean Corpuscular Volume 100 FL (80-99) H Mean Corpuscular Hemoglobin 34.1 PG (27.0-31.0) H Mean Corpuscular Hemoglobin Concent 34.2 G/DL (32.0-36.0) Red Cell Distribution Width 13.2 % (11.6-14.8) Platelet Count 31 K/UL (150-450) L Mean Platelet Volume 15.9 FL (6.5-10.1) H Neutrophils (%) (Auto) % (45.0-75.0) Lymphocytes (%) (Auto) % (20.0-45.0) Monocytes (%) (Auto) % (1.0-10.0) Eosinophils (%) (Auto) % (0.0-3.0) Basophils (%) (Auto) % (0.0-2.0) Differential Total Cells Counted 100 Neutrophils % (Manual) 62 % (45-75) Lymphocytes % (Manual) 5 % (20-45) L Monocytes % (Manual) 29 % (1-10) H Eosinophils % (Manual) 0 % (0-3) Basophils % (Manual) 0 % (0-2) Band Neutrophils 4 % (0-8) Platelet Estimate Decreased L Platelet Morphology Normal Macrocytosis 1+ Sodium Level 150 MMOL/L (136-145) H Potassium Level 3.6 MMOL/L (3.5-5.1) Chloride Level 118 MMOL/L (98-107) H Carbon Dioxide Level 19 MMOL/L (21-32) L Anion Gap 13 mmol/L (5-15) Blood Urea Nitrogen 28 mg/dL (7-18) H Creatinine 1.0 MG/DL (0.55-1.30) Estimat Glomerular Filtration Rate mL/min (>60) Glucose Level 140 MG/DL (74-106) H Calcium Level 8.8 MG/DL (8.5-10.1) Magnesium Level 2.3 MG/DL (1.8-2.4) Total Bilirubin 0.7 MG/DL (0.2-1.0) Aspartate Amino Transf (AST/SGOT) 28 U/L (15-37) Alanine Aminotransferase (ALT/SGPT) 34 U/L (12-78) Alkaline Phosphatase 76 U/L (46-116) Lactate Dehydrogenase 209 U/L (81-234) Total Protein 5.2 G/DL (6.4-8.2) L Albumin 2.9 G/DL (3.4-5.0) L Globulin 2.3 g/dL Albumin/Globulin Ratio 1.3 (1.0-2.7) Current Medications Medications (Trade) Dose Ordered Sig/Anabella Route PRN Reason Start Time Stop Time Status Last Admin Dose Admin Acetaminophen (Tylenol) 650 mg Q6H PRN ORAL Mild Pain/Temp > 100.5 10/01/17 19:15 10/31/17 19:14 Artificial Tears (Lacri-Lube) 1 applic BEDTIME LEFT EYE 09/29/17 22:00 10/29/17 21:59 10/02/17 21:38 Bupropion HCl (Wellbutrin) 75 mg DAILY ORAL 10/01/17 09:00 10/31/17 08:59 10/02/17 08:56 Carbidopa/Levodopa (Sinemet 25/100) 1 ea BID ORAL 09/30/17 09:00 10/30/17 08:59 10/02/17 18:05 Dextrose/ Electrolytes 1,000 ml @ 40 mls/hr Q24H IV 10/02/17 22:30 11/01/17 22:29 Docusate Sodium (Colace) 100 mg THREE TIMES A DAY ORAL 09/30/17 09:00 10/30/17 08:59 10/02/17 18:05 Escitalopram Oxalate (Lexapro) 5 mg DAILY ORAL 09/30/17 09:00 10/30/17 08:59 10/02/17 08:56 Hydrocortisone (Anusol HC) 1 applic TWICE A DAY RECTAL 09/30/17 18:00 10/30/17 17:59 10/02/17 18:04 Lisinopril (Zestril) 30 mg BEDTIME ORAL 09/29/17 22:00 10/29/17 21:59 10/02/17 21:37 Memantine (Namenda) 10 mg BID ORAL 09/30/17 09:00 10/30/17 08:59 10/02/17 18:05 Metronidazole (Flagyl) 500 mg EVERY 8 HOURS ORAL 10/01/17 22:00 10/07/17 17:59 10/02/17 14:13 Pantoprazole (Protonix) 40 mg DAILY IVP 09/30/17 09:00 10/30/17 08:59 10/02/17 10:10 Patient Own Medication (Patient's Own Med) 1 ea Q2H ORAL 10/01/17 14:00 10/31/17 13:59 10/02/17 22:00 Piperacillin Sod/ Tazobactam Sod 3.375 gm/Dextrose 55 ml @ 13.75 mls/ hr Q8HR IVPB 10/02/17 14:00 10/09/17 13:59 10/02/17 14:13 Polyethylene Glycol (Miralax) 17 gm BEDTIME ORAL 09/30/17 21:00 10/30/17 20:59 10/02/17 21:38 Polyethylene Glycol (Miralax) 17 gm QHS ORAL 10/03/17 21:00 10/30/17 08:59 Quetiapine Fumarate (SEROquel) 25 mg DAILY ORAL 09/30/17 09:00 10/30/17 08:59 10/02/17 08:56 Quetiapine Fumarate (SEROquel) 150 mg BEDTIME ORAL 09/29/17 22:00 10/29/17 21:59 10/02/17 21:36 ERIKA FRAIRE Oct 02, 2017 22:14
[2017-10-02] MEDS ORDERED: D5 1/2NS w/KCl 20mEq 1,000 ML IV SCH (22:30)
[2017-10-03] VITALS (12 sets, daily range): BP systolic 91–159; BP diastolic 43–97
[2017-10-03] MEDS: DEXTROMETHORPHAN ORAL SCH ×12 (02:00→21:32)
[2017-10-03] MEDS: Piperacillin/Tazobactam 3.375 GM in D5W 55 ML IVPB SCH ×3 (06:06→21:32)
[2017-10-03] MEDS: metroNIDAZOLE 500mg tab ORAL SCH ×3 (06:06→21:32)
[2017-10-03 07:36] LABS: MEAN CORPUSCULAR HEMOGLOBIN 34.6 PG (27.0-31.0); MEAN CORPUSCULAR HGB CONC 34.7 G/DL (32.0-36.0); MEAN CORPUSCULAR VOLUME 100 FL (80-99); PLATELET COUNT 19 K/UL (150-450); RED BLOOD COUNT 3.46 M/UL (4.20-5.40); RED CELL DISTRIBUTION WIDTH 12.8 % (11.6-14.8)
[2017-10-03 07:41] LABS: WHITE BLOOD COUNT 24.1 K/UL (4.8-10.8)
[2017-10-03 08:00] LABS: ANION GAP 11 mmol/L (5-15); CALCIUM 8.8 MG/DL (8.5-10.1); CARBON DIOXIDE 21 MMOL/L (21-32); CHLORIDE 119 MMOL/L (98-107); CREATININE 0.9 MG/DL (0.55-1.30); POTASSIUM 3.3 MMOL/L (3.5-5.1); SODIUM 151 MMOL/L (136-145)
[2017-10-03 08:32] LABS: ANISOCYTOSIS 1+; BAND NEUTROPHILS % (MANUAL) 0 % (0-8); BASOPHILS % (MANUAL) 0 % (0-2); EOSINOPHILS % (MANUAL) 0 % (0-3); LYMPHOCYTES % (MANUAL) 13 % (20-45); NEUTROPHILS % (MANUAL) 62 % (45-75); PLATELET ESTIMATE DECREASED; PLATELET MORPHOLOGY NORMAL; TOTAL CELLS COUNTED 100
[2017-10-03] MEDS: Escitalopram Oxalate 5mg tab ORAL SCH (09:14)
[2017-10-03] MEDS: Docusate 100mg cap ORAL SCH ×3 (09:14→18:00)
[2017-10-03] MEDS: Sinemet 25/100 tab ORAL SCH ×2 (09:14→18:14)
[2017-10-03] MEDS: Memantine 10mg tab ORAL SCH ×2 (09:14→18:14)
[2017-10-03] MEDS: Pantoprazole Inj IVP SCH (09:14)
[2017-10-03] MEDS: BuPROPion 75mg Tab ORAL SCH (09:14)
[2017-10-03 09:40] LABS: OTHERS PATHOLOGIST COMMENT
[2017-10-03] MEDS ORDERED: Fleet's Mineral Oil Enema RECTAL ONE ×2 (12:00→13:00)
--- NOTE | 2017-10-03 13:37 | Geriatric Progress Note ---
Assessment/Plan Problems: (1) Chronic pain disorder (2) Anxiety (3) Depression (4) Gait disorder (5) Hemiparesis affecting left side as late effect of cerebrovascular accident (6) Pseudobulbar affect (7) Monocytosis (8) Proctitis (9) Leukocytosis (10) Fecal impaction in rectum Assessment/Plan Leukocytosis with monocytosis hopefully reactive, pending flex sig for further diagnositic information. Thrombocytopenia, associated with use of low dose quinidine in [place]. Perhaps exacerbated on Zosyn. Consider change in antibiotic tx after procedure. Agree with platelet infusion. IAD with skin breakdown, tx ongoing, slightly improved. Given relative hypotension, persistent hypernatremia, will increase IVF rate. Continue other tx. Discussed with: patient, hospital staff, other - caregiver Subjective Interval Events Patient with chronic c/o pain. However, clinically looks about the same. Bp trending a little lower. Noted persistent leukocytosis, although monos down slightly, and lymphs up somewhat. Discussed with Dr. Diallo, to do flex sig to visualize possible proctitis vs. other etiology. Platelets low, further drop today, but with no signs of significant active bleeding. Given sig, plan is to transfuse 1u pheresed plts prior to procedure. Loose stools persist, but caregiver reports no indication of further bleeding. Na remains somewhat elevated, BUN/Cr improved. Hct stable. Constitutional: Reports: pain - chronic c/w baseline Respiratory: Denies: cough, shortness of breath Cardiovascular: Denies: chest pain, palpitations Gastrointestinal/Abdominal: Denies: vomiting Genitourinary: Denies: dysuria Geriatric Geriatric Last 24 Hour Vital Signs Date Time Temp Pulse Resp B/P (MAP) Pulse Ox O2 Delivery O2 Flow Rate FiO2 10/03/17 12:00 97.0 115 21 91/58 95 Nasal Cannula 2.0 10/03/17 08:00 97.8 96 20 95/67 92 Nasal Cannula 2.0 10/03/17 05:14 97.0 10/03/17 04:52 97.0 89 18 112/82 92 Room Air 10/03/17 04:00 87 10/03/17 00:46 98.4 94 18 159/97 94 Room Air 10/03/17 00:00 94 10/03/17 00:00 98.4 89 24 119/74 96 Room Air 10/02/17 21:37 138/78 10/02/17 20:54 98.1 100 18 106/55 92 Room Air 10/02/17 20:00 98.4 89 24 148/67 92 Room Air 10/02/17 20:00 79 10/02/17 16:00 65 10/02/17 16:00 98.6 80 18 146/95 93 Room Air Laboratory Tests Test 10/03/17 07:00 White Blood Count 24.1 K/UL (4.8-10.8) *H Red Blood Count 3.46 M/UL (4.20-5.40) L Hemoglobin 12.0 G/DL (12.0-16.0) Hematocrit 34.5 % (37.0-47.0) L Mean Corpuscular Volume 100 FL (80-99) H Mean Corpuscular Hemoglobin 34.6 PG (27.0-31.0) H Mean Corpuscular Hemoglobin Concent 34.7 G/DL (32.0-36.0) Red Cell Distribution Width 12.8 % (11.6-14.8) Platelet Count 19 K/UL (150-450) L Mean Platelet Volume 13.0 FL (6.5-10.1) H Neutrophils (%) (Auto) % (45.0-75.0) Lymphocytes (%) (Auto) % (20.0-45.0) Monocytes (%) (Auto) % (1.0-10.0) Eosinophils (%) (Auto) % (0.0-3.0) Basophils (%) (Auto) % (0.0-2.0) Differential Total Cells Counted 100 Neutrophils % (Manual) 62 % (45-75) Lymphocytes % (Manual) 13 % (20-45) L Monocytes % (Manual) 25 % (1-10) H Eosinophils % (Manual) 0 % (0-3) Basophils % (Manual) 0 % (0-2) Band Neutrophils 0 % (0-8) Platelet Estimate Decreased L Platelet Morphology Normal Anisocytosis 1+ Sodium Level 151 MMOL/L (136-145) H Potassium Level 3.3 MMOL/L (3.5-5.1) L Chloride Level 119 MMOL/L (98-107) H Carbon Dioxide Level 21 MMOL/L (21-32) Anion Gap 11 mmol/L (5-15) Blood Urea Nitrogen 20 mg/dL (7-18) H Creatinine 0.9 MG/DL (0.55-1.30) Estimat Glomerular Filtration Rate mL/min (>60) Glucose Level 169 MG/DL (74-106) H Calcium Level 8.8 MG/DL (8.5-10.1) Current Medications Medications (Trade) Dose Ordered Sig/Anabella Route PRN Reason Start Time Stop Time Status Last Admin Dose Admin Acetaminophen (Tylenol) 650 mg Q6H PRN ORAL Mild Pain/Temp > 100.5 10/01/17 19:15 10/31/17 19:14 10/03/17 04:15 Artificial Tears (Lacri-Lube) 1 applic BEDTIME LEFT EYE 09/29/17 22:00 10/29/17 21:59 10/02/17 21:38 Bupropion HCl (Wellbutrin) 75 mg DAILY ORAL 10/01/17 09:00 10/31/17 08:59 10/03/17 09:14 Carbidopa/Levodopa (Sinemet 25/100) 1 ea BID ORAL 09/30/17 09:00 10/30/17 08:59 10/03/17 09:14 Dextrose 1,000 ml @ 75 mls/hr [id number] IV 10/03/17 10:15 11/02/17 10:14 Dextrose/ Electrolytes 1,000 ml @ 40 mls/hr Q24H IV 10/02/17 22:30 11/01/17 22:29 10/02/17 22:53 Docusate Sodium (Colace) 100 mg THREE TIMES A DAY ORAL 09/30/17 09:00 10/30/17 08:59 10/03/17 09:14 Escitalopram Oxalate (Lexapro) 5 mg DAILY ORAL 09/30/17 09:00 10/30/17 08:59 10/03/17 09:14 Hydrocortisone (Anusol HC) 1 applic TWICE A DAY RECTAL 09/30/17 18:00 10/30/17 17:59 10/03/17 09:15 Lisinopril (Zestril) 30 mg BEDTIME ORAL 09/29/17 22:00 10/29/17 21:59 10/02/17 21:37 Memantine (Namenda) 10 mg BID ORAL 09/30/17 09:00 10/30/17 08:59 10/03/17 09:14 Metronidazole (Flagyl) 500 mg EVERY 8 HOURS ORAL 10/01/17 22:00 10/07/17 17:59 10/03/17 06:06 Pantoprazole (Protonix) 40 mg DAILY IVP 09/30/17 09:00 10/30/17 08:59 10/03/17 09:14 Patient Own Medication (Patient's Own Med) 1 ea Q2H ORAL 10/03/17 00:00 11/02/17 00:00 10/03/17 06:06 Piperacillin Sod/ Tazobactam Sod 3.375 gm/Dextrose 55 ml @ 13.75 mls/ hr Q8HR IVPB 10/02/17 14:00 10/09/17 13:59 10/03/17 06:06 Polyethylene Glycol (Miralax) 17 gm BEDTIME ORAL 09/30/17 21:00 10/30/17 20:59 10/02/17 21:38 Polyethylene Glycol (Miralax) 17 gm QHS ORAL 10/03/17 21:00 10/30/17 08:59 Quetiapine Fumarate (SEROquel) 25 mg DAILY ORAL 09/30/17 09:00 10/30/17 08:59 10/03/17 09:14 Quetiapine Fumarate (SEROquel) 150 mg BEDTIME ORAL 09/29/17 22:00 10/29/17 21:59 10/02/17 21:36 Height (Feet): 4 Height (Inches): 9.00 Weight (Pounds): 94 General Appearance: alert Head: normocephalic Eyes: bilateral anicteric ENT: normal voice Neck: full range of motion, no mass Respiratory: lungs clear Cardiovascular: regular rate, rhythm Gastrointestinal: normal bowel sounds, soft, no mass, no organomegaly, tenderness - No definite tenderness. Musculoskeletal: no calf tenderness Edema: no edema noted CASSIE Lopez Oct 03, 2017 13:37
[2017-10-03] MEDS ORDERED: D5 1/2NS w/KCl 20mEq 1,000 ML IV SCH (14:30)
[2017-10-03] MEDS ORDERED: NS 500ML IV ONE (14:45)
--- NOTE | 2017-10-03 14:56 | Pre-Procedure Note/Attestation ---
Pre-Procedure Note/Attestation Complete Prior to Procedure Planned Procedure: not applicable Procedure Narrative: Flex sig with biopsy Indications for Procedure Pre-Operative Diagnosis: abnormal CT Attestation I attest that I discussed the nature of the procedure; its benefits; risks and complications; and alternatives (and the risks and benefits of such alternatives ), prior to the procedure, with the patient (or the patient's legal loss prevention representative). I attest that, if there was a reasonable possibility of needing a blood transfusion, the patient (or the patient's legal loss prevention representative) was given the [facility] standardized written summary, pursuant to the Angelo Diann Blood Safety Act ([place] Health and Safety Code # 1645, as amended). I attest that I re-evaluated the patient just prior to the surgery and that there has been no change in the patient's H&P, except as documented below: SHAAN RODRIGUEZ Oct 03, 2017 14:56
--- NOTE | 2017-10-03 14:58 | Anethesia Preoperative Eval ---
Anesthesia Pre-op PMH/ROS General Date of Evaluation: Oct 03, 2017 Time of Evaluation: 14:40 Anesthesiologist: Micky ASA Score: ASA 4 Mallampati Score Class I : Soft palate, uvula, fauces, pillars visible Class II: Soft palate, uvula, fauces visible Class III: Soft palate, base of uvula visible Class IV: Only hard plate visible Mallampati Classification: Class III Surgeon: Wendi Diagnosis: Rectal bleeding Surgical Procedure: Sigmoidoscopy Anesthesia History: none Family History: no anesthesia problems Allergies: Coded Allergies: SULFA (SULFONAMIDE ANTIBIOTICS) (Verified Allergy, Unknown, 10/12/15) Medications: see eMAR Past Medical History Cardiovascular: Reports: HTN, Denies: CAD, HI, valve dz, arrhythmia, other Pulmonary: Denies: asthma, COPD, MARILOU, other Gastrointestinal/Genitourinary: Reports: other - GI bleed, fecal impact, Denies: GERD, CRI, ESRD Neurologic/Psychiatric: Reports: dementia, CVA, Denies: depression/anxiety, TIA, other Endocrine: Denies: DM, hypothyroidism, steroids, other HEENT: Denies: cataract (L), cataract (R), glaucoma, ONEIDA (L), ONEIDA (R), other Hematology/Immune: Reports: anemia, Denies: DVT, bleeding disorder, other Musculoskeletal/Integumentary: Reports: DJD, Denies: OA, RA, DDD, edema, other Other: other - malnourished PMH Narrative: as above PSxH Narrative: See H&P Anesthesia Pre-op Phys. Exam Physician Exam Last Vital Signs Date Time Temp Pulse Resp B/P (MAP) Pulse Ox O2 Delivery O2 Flow Rate FiO2 10/03/17 12:00 97.7 52 20 150/94 96 10/03/17 08:00 Nasal Cannula 2.0 Constitutional: NAD Neurologic: other - unable to obtaine Cardiovascular: RRR, no M/R/G Respiratory: CTA Gastrointestinal: S/NT/ND Airway Exam Mallampati Score: Class III MO: limited Neck: stiff ROM: limited Teeth: missing, broken Dentures: no upper, no lower Anesthesia Pre-op A/P Labs Hematology Test 10/03/17 07:00 White Blood Count 24.1 K/UL (4.8-10.8) *H Red Blood Count 3.46 M/UL (4.20-5.40) L Hemoglobin 12.0 G/DL (12.0-16.0) Hematocrit 34.5 % (37.0-47.0) L Mean Corpuscular Volume 100 FL (80-99) H Mean Corpuscular Hemoglobin 34.6 PG (27.0-31.0) H Mean Corpuscular Hemoglobin Concent 34.7 G/DL (32.0-36.0) Red Cell Distribution Width 12.8 % (11.6-14.8) Platelet Count 19 K/UL (150-450) L Mean Platelet Volume 13.0 FL (6.5-10.1) H Neutrophils (%) (Auto) % (45.0-75.0) Lymphocytes (%) (Auto) % (20.0-45.0) Monocytes (%) (Auto) % (1.0-10.0) Eosinophils (%) (Auto) % (0.0-3.0) Basophils (%) (Auto) % (0.0-2.0) Differential Total Cells Counted 100 Neutrophils % (Manual) 62 % (45-75) Lymphocytes % (Manual) 13 % (20-45) L Monocytes % (Manual) 25 % (1-10) H Eosinophils % (Manual) 0 % (0-3) Basophils % (Manual) 0 % (0-2) Band Neutrophils 0 % (0-8) Platelet Estimate Decreased L Platelet Morphology Normal Anisocytosis 1+ Chemistry Test 10/03/17 07:00 Sodium Level 151 MMOL/L (136-145) H Potassium Level 3.3 MMOL/L (3.5-5.1) L Chloride Level 119 MMOL/L (98-107) H Carbon Dioxide Level 21 MMOL/L (21-32) Anion Gap 11 mmol/L (5-15) Blood Urea Nitrogen 20 mg/dL (7-18) H Creatinine 0.9 MG/DL (0.55-1.30) Estimat Glomerular Filtration Rate mL/min (>60) Glucose Level 169 MG/DL (74-106) H Calcium Level 8.8 MG/DL (8.5-10.1) Studies Pre-op Studies: EKG - SR Risk Assessment & Plan Assessment: ASA 4 Plan: MAC Status Change Before Surgery: LEN Hurd M.D. Oct 03, 2017 14:58
[2017-10-03] MEDS ORDERED: Midazolam 2mg/2ml Inj ONE (15:00)
[2017-10-03] MEDS ORDERED: Propofol 200mg/20ml IV ONE (15:00)
[2017-10-03] MEDS ORDERED: DiphenhydrAMINE 50mg/ml Inj IVP PRN (15:15)
[2017-10-03] MEDS ORDERED: fentaNYL 100 mcg/2 mL IV PRN (15:15)
--- NOTE | 2017-10-03 15:21 | Endoscopy Procedure Note ---
Endoscopy Procedure Note Indication for Procedure: abnormal CT Procedures Performed: flexible sigmoidoscopy Operative Findings/Diagnosis: ischemic colitis Specimen: yes Pt Tolerated Procedure Well: Yes Estimated Blood Loss: none Anesthesiologist: Micky Anesthesia: MAC, moderate sedation Medication Given: see anesthesia record Implant(s) used?: No 50 yrs or older w/o bx or poly: Not Applicable 10yrs. F/U not recommended: Not Applicable If not recommended, why?: SHAAN RODRIGUEZ Oct 03, 2017 15:21
--- NOTE | 2017-10-03 15:22 | Brief Operative Note ---
Immediate Post Operative Note Operative Note Chief Complaint: abnormal CT Pre-op Diagnosis: abnormal CT Procedure: F/S and bx Post-op Diagnosis: ischemic colitis Surgeon: wm Anesthesia: MAC Specimen: yes Complications: none Condition: stable Fluids: see anesth Estimated Blood Loss: none Drains: none Implant(s) used?: No SHAAN RODRIGUEZ Oct 03, 2017 15:22
--- NOTE | 2017-10-03 15:29 | Immediate Post-Op Evaluation ---
Immediate Post-Op Evalulation Immediate Post-Op Evalulation Procedure: Flexible sigmoidoscopy Date of Evaluation: Oct 03, 2017 Time of Evaluation: 15:27 IV Fluids: 300 Blood Products: Platelets running Estimated Blood Loss: min Urinary Output: none Blood Pressure Systolic: 101 Blood Pressure Diastolic: 52 Pulse Rate: 72 Respiratory Rate: 20 O2 Sat by Pulse Oximetry: 98 Temperature (Fahrenheit): 97.3 Pain Score (1-10): 2 Nausea: No Vomiting: No Complications none Patient Status: reacts, patent, none Hydration Status: adequate LEN HANSEN M.D. Oct 03, 2017 15:29
--- NOTE | 2017-10-03 15:38 | General Progress Note ---
Assessment/Plan Assessment/Plan Assessment - severe thrombocytopenia - stool impaction - abnormal CT - Leukocytosis - OBS - Guarded Recommendations - bowel regimen - NPO - Platelet transfusion - consider Heme-Onc re-eval - Flex sig with bx today Post Procedure Addendum - Circumferential non-ulcerative mucosal edema, erythema, friability, and superficial necrosis suggestive of ischemic colitis - changes seen to full extent of exam (40 cm), but appeared worst in distal colon/rectum - ischemic injury significant, but not likely transmural (ie not full thickness gangrene) - would manage conservatively (serial exam, increased IVF, clear liquids, bowel regimen) - given degree of thrombocytopenia, at high risk for upcoming rectal bleeding ( if/when ischemic mucosa ulcerates during a repair process) - rec heme eval to re-address low platelets Subjective Allergies: Coded Allergies: SULFA (SULFONAMIDE ANTIBIOTICS) (Verified Allergy, Unknown, 10/12/15) Subjective above noted patient with BM but persistent WBC also with severe thrombocyopenia d/w PMD - platelets critically low, but stable d/w son re all findings rec flex sig to evaluate distal colon rec platelet Tx to allow for safe procedure patient agitated - unable to participate in decisions Objective Last 24 Hour Vital Signs Date Time Temp Pulse Resp B/P (MAP) Pulse Ox O2 Delivery O2 Flow Rate FiO2 10/03/17 12:00 97.7 52 20 150/94 96 10/03/17 08:00 97.8 96 20 95/67 92 Nasal Cannula 2.0 10/03/17 05:14 97.0 10/03/17 04:52 97.0 89 18 112/82 92 Room Air 10/03/17 04:00 87 10/03/17 00:46 98.4 94 18 159/97 94 Room Air 10/03/17 00:00 94 10/03/17 00:00 98.4 89 24 119/74 96 Room Air 10/02/17 21:37 138/78 10/02/17 20:54 98.1 100 18 106/55 92 Room Air 10/02/17 20:00 98.4 89 24 148/67 92 Room Air 10/02/17 20:00 79 10/02/17 16:00 65 10/02/17 16:00 98.6 80 18 146/95 93 Room Air Laboratory Tests 10/03/17 07:00: White Blood Count 24.1*H, Red Blood Count 3.46L, Hemoglobin 12.0, Hematocrit 34.5L, Mean Corpuscular Volume 100H, Mean Corpuscular Hemoglobin 34.6H, Mean Corpuscular Hemoglobin Concent 34.7, Red Cell Distribution Width 12.8, Platelet Count 19L, Mean Platelet Volume 13.0H, Neutrophils (%) (Auto) , Lymphocytes (%) (Auto) , Monocytes (%) (Auto) , Eosinophils (%) (Auto) , Basophils (%) (Auto) , Differential Total Cells Counted 100, Neutrophils % (Manual) 62, Lymphocytes % ( Manual) 13L, Monocytes % (Manual) 25H, Eosinophils % (Manual) 0, Basophils % ( Manual) 0, Band Neutrophils 0, Platelet Estimate DecreasedL, Platelet Morphology Normal, Anisocytosis 1+, Sodium Level 151H, Potassium Level 3.3L, Chloride Level 119H, Carbon Dioxide Level 21, Anion Gap 11, Blood Urea Nitrogen 20H, Creatinine 0.9, Estimat Glomerular Filtration Rate , Glucose Level 169H, Calcium Level 8.8 Height (Feet): 4 Height (Inches): 9.00 Weight (Pounds): 94 Objective Elderly WW agitated with exam NCAT Supple CTA RRR soft NT ND no edema OBS SHAAN RODRIGUEZ Oct 03, 2017 15:38
[2017-10-03] MEDS: D5 1/2NS w/KCl 20mEq 1,000 ML IV SCH (16:00)
--- NOTE | 2017-10-03 16:57 | Infectious Diseases Prog Note ---
Assessment/Plan Assessment/Plan ASSESSMENT AND PLAN: 1. sepsis, proctitis, ischemic colitis seen on flex/sig, fecal impaction, leukocytosis - continue zosyn and flagyl for now - continue treatment per Dr. Moody and GI - watch labs 2. The patient has history of hypertension. Blood pressure treatment per Dr. Moody. 3. Gastrointestinal bleed, thrombocytopenia 4. History of bilateral leg contractures. 5. Cerebrovascular accident. 6. Left hemiparesis. 7. Chest x-ray does not show any pneumonia. 8. Urinalysis is benign. 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 11. Chronic pain syndrome. 12. History of depression. 13. Anxiety. 14. Agitation. 15. Psychosis. 16. Parkinson's. 17. Thrombocytopenia. 18. Anemia. 19. Allergy to sulfa. 20. Social history is negative. 21. MAR was noted. 22. Family History noncontributory. 23. Continue treatment per Dr. Moody and Gastroenterology. 24. Skin care protocol. 25. Case discussed with Dr. Moody. 26. Case discussed with RN. Subjective Constitutional: Denies: fever HEENT: Denies: congestion Respiratory: Denies: shortness of breath Cardiovascular: Denies: chest pain Gastrointestinal/Abdominal: Denies: nausea, vomiting, diarrhea Genitourinary: Reports: other - + pabon Neurologic: Denies: headache Psychiatric: Denies: depression Skin: Denies: rash Hematologic: Denies: bleeding Musculoskeletal: Reports: pain - less Allergies: Coded Allergies: SULFA (SULFONAMIDE ANTIBIOTICS) (Verified Allergy, Unknown, 10/12/15) Objective Vital Signs Last 24 Hour Vital Signs Date Time Temp Pulse Resp B/P (MAP) Pulse Ox O2 Delivery O2 Flow Rate FiO2 10/03/17 16:00 97.8 78 20 110/86 95 Room Air 10/03/17 15:47 97.8 64 20 111/52 99 Nasal Cannula 2.0 10/03/17 15:42 58 20 106/43 100 Nasal Cannula 2.0 10/03/17 15:29 72 20 98 10/03/17 15:27 60 20 106/45 100 Nasal Cannula 2.0 10/03/17 15:22 71 20 104/48 100 Nasal Cannula 2.0 10/03/17 15:17 97.9 70 20 101/50 100 Nasal Cannula 2.0 10/03/17 12:00 97.7 52 20 150/94 96 10/03/17 08:00 97.8 96 20 95/67 92 Nasal Cannula 2.0 10/03/17 05:14 97.0 10/03/17 04:52 97.0 89 18 112/82 92 Room Air 10/03/17 04:00 87 10/03/17 00:46 98.4 94 18 159/97 94 Room Air 10/03/17 00:00 94 10/03/17 00:00 98.4 89 24 119/74 96 Room Air 10/02/17 21:37 138/78 10/02/17 20:54 98.1 100 18 106/55 92 Room Air 10/02/17 20:00 98.4 89 24 148/67 92 Room Air 10/02/17 20:00 79 Height (Feet): 4 Height (Inches): 9.00 Weight (Pounds): 94 General Appearance: no acute distress HEENT: normocephalic, atraumatic, anicteric, mucous membranes moist Respiratory/Chest: lungs clear, normal breath sounds, no respiratory distress, no accessory muscle use Cardiovascular: normal rate, regular rhythm, no gallop/murmur, no JVD Abdomen: normal bowel sounds, soft, non tender, no organomegaly, non distended Genitourinary: other Extremities: no cyanosis Skin: no rash 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 Complete 09/29/17 16:47 Rectum VRE Culture - Final NO VANCOMYCIN RESISTANT ENTEROCOCCUS ... Complete Laboratory Tests Test 10/03/17 07:00 White Blood Count 24.1 K/UL (4.8-10.8) *H Red Blood Count 3.46 M/UL (4.20-5.40) L Hemoglobin 12.0 G/DL (12.0-16.0) Hematocrit 34.5 % (37.0-47.0) L Mean Corpuscular Volume 100 FL (80-99) H Mean Corpuscular Hemoglobin 34.6 PG (27.0-31.0) H Mean Corpuscular Hemoglobin Concent 34.7 G/DL (32.0-36.0) Red Cell Distribution Width 12.8 % (11.6-14.8) Platelet Count 19 K/UL (150-450) L Mean Platelet Volume 13.0 FL (6.5-10.1) H Neutrophils (%) (Auto) % (45.0-75.0) Lymphocytes (%) (Auto) % (20.0-45.0) Monocytes (%) (Auto) % (1.0-10.0) Eosinophils (%) (Auto) % (0.0-3.0) Basophils (%) (Auto) % (0.0-2.0) Differential Total Cells Counted 100 Neutrophils % (Manual) 62 % (45-75) Lymphocytes % (Manual) 13 % (20-45) L Monocytes % (Manual) 25 % (1-10) H Eosinophils % (Manual) 0 % (0-3) Basophils % (Manual) 0 % (0-2) Band Neutrophils 0 % (0-8) Platelet Estimate Decreased L Platelet Morphology Normal Anisocytosis 1+ Sodium Level 151 MMOL/L (136-145) H Potassium Level 3.3 MMOL/L (3.5-5.1) L Chloride Level 119 MMOL/L (98-107) H Carbon Dioxide Level 21 MMOL/L (21-32) Anion Gap 11 mmol/L (5-15) Blood Urea Nitrogen 20 mg/dL (7-18) H Creatinine 0.9 MG/DL (0.55-1.30) Estimat Glomerular Filtration Rate mL/min (>60) Glucose Level 169 MG/DL (74-106) H Calcium Level 8.8 MG/DL (8.5-10.1) Current Medications Medications (Trade) Dose Ordered Sig/Anabella Route PRN Reason Start Time Stop Time Status Last Admin Dose Admin Acetaminophen (Tylenol) 650 mg Q6H PRN ORAL Mild Pain/Temp > 100.5 10/01/17 19:15 10/31/17 19:14 10/03/17 04:15 Artificial Tears (Lacri-Lube) 1 applic BEDTIME LEFT EYE 09/29/17 22:00 10/29/17 21:59 10/02/17 21:38 Bupropion HCl (Wellbutrin) 75 mg DAILY ORAL 10/01/17 09:00 10/31/17 08:59 10/03/17 09:14 Carbidopa/Levodopa (Sinemet 25/100) 1 ea BID ORAL 09/30/17 09:00 10/30/17 08:59 10/03/17 09:14 Dextrose/ Electrolytes 1,000 ml @ 125 mls/hr Q8H IV 10/04/17 16:00 11/03/17 15:59 Diphenhydramine HCl (Benadryl) 25 mg Q15M PRN IVP Itching 10/03/17 15:15 UNV Docusate Sodium (Colace) 100 mg THREE TIMES A DAY ORAL 09/30/17 09:00 10/30/17 08:59 10/03/17 09:14 Escitalopram Oxalate (Lexapro) 5 mg DAILY ORAL 09/30/17 09:00 10/30/17 08:59 10/03/17 09:14 Fentanyl Citrate (Sublimaze 100 mcg/2 mL) 25 mcg Q10M PRN IV Moderate Pain (Pain Scale 4-6) 10/03/17 15:15 UNV Hydrocortisone (Anusol HC) 1 applic TWICE A DAY RECTAL 09/30/17 18:00 10/30/17 17:59 10/03/17 09:15 Lisinopril (Zestril) 30 mg BEDTIME ORAL 09/29/17 22:00 10/29/17 21:59 10/02/17 21:37 Memantine (Namenda) 10 mg BID ORAL 09/30/17 09:00 10/30/17 08:59 10/03/17 09:14 Metronidazole (Flagyl) 500 mg EVERY 8 HOURS ORAL 10/01/17 22:00 10/07/17 17:59 10/03/17 06:06 Ondansetron HCl (Zofran) 4 mg Q1H PRN IVP Nausea & Vomiting 10/03/17 15:15 UNV Pantoprazole (Protonix) 40 mg DAILY IVP 09/30/17 09:00 10/30/17 08:59 10/03/17 09:14 Patient Own Medication (Patient's Own Med) 1 ea Q2H ORAL 10/03/17 00:00 11/02/17 00:00 10/03/17 06:06 Piperacillin Sod/ Tazobactam Sod 3.375 gm/Dextrose 55 ml @ 13.75 mls/ hr Q8HR IVPB 10/02/17 14:00 10/09/17 13:59 10/03/17 06:06 Polyethylene Glycol (Miralax) 17 gm BEDTIME ORAL 09/30/17 21:00 10/30/17 20:59 10/02/17 21:38 Polyethylene Glycol (Miralax) 17 gm QHS ORAL 10/03/17 21:00 10/30/17 08:59 Quetiapine Fumarate (SEROquel) 25 mg DAILY ORAL 09/30/17 09:00 10/30/17 08:59 10/03/17 09:14 Quetiapine Fumarate (SEROquel) 150 mg BEDTIME ORAL 09/29/17 22:00 10/29/17 21:59 10/02/17 21:36 Sodium Chloride 1,000 ml @ 10 mls/hr Q24H IVLG 10/03/17 15:03 10/03/17 17:02 ERIKA MASSEY Oct 03, 2017 16:57
--- NOTE | 2017-10-03 18:23 | 48 Hour Post Anesthesia Eval ---
Post Anesthesia Evaluation Procedure: Flexible sigmoidoscopy Date of Evaluation: Oct 03, 2017 Time of Evaluation: 18:22 Blood Pressure Systolic: 102 0: 52 Pulse Rate: 74 Respiratory Rate: 20 Temperature (Fahrenheit): 97.6 O2 Sat by Pulse Oximetry: 98 Airway: patent Nausea: No Vomiting: No Pain Intensity: 1 Hydration Status: adequate Cardiopulmonary Status: stable Mental Status/LOC: patient returned to baseline Follow-up Care/Observations: n/a Post-Anesthesia Complications: none Follow-up care needed: N/A LEN HANSEN M.D. Oct 03, 2017 18:23
[2017-10-03] MEDS ORDERED: Miralax 17gm pkt ORAL SCH (21:00)
[2017-10-03] MEDS: Miralax 17gm pkt ORAL SCH (21:00)
[2017-10-03] MEDS: Lacri-Lube Opth Oint 3.5gm LEFT EYE SCH (21:19)
[2017-10-03] MEDS: Lisinopril 10mg tab ORAL SCH (21:29)
[2017-10-04] VITALS: BP 133/63
[2017-10-04] MEDS: DEXTROMETHORPHAN ORAL SCH ×12 (02:00→22:00)
--- NOTE | 2017-10-04 03:00 | Consultation ---
DATE OF CONSULTATION: 10/03/2017 HEMATOLOGY/ONCOLOGY CONSULTATION CONSULTING PHYSICIAN: Luis Maldonado M.D. REQUESTING PHYSICIAN: Mike Moody M.D. REASON FOR CONSULTATION: Evaluation of thrombocytopenia as well as leukocytosis and monocytosis. IDENTIFYING DATA: Dear Dr. Mike Moody, The patient is a pleasant 87-year-old female with past medical history significant for history of recent rectal bleeding, CVA, left hemiparesis, bilateral knee contractures, hypertension, pseudobulbar affect, chronic pain syndrome, anxiety, agitation, Parkinson's disease, who at this time presents to the hospital with significant leukocytosis, white count 24,000 currently and platelet count of 42,000. The patient noted to have macrocytosis with MCV more than 100 and platelet count currently 19,000. Hematology Service consulted for further evaluation and treatment. PAST MEDICAL HISTORY: As noted above, CVA, left hemiparesis, bilateral knee contractures, depression, anxiety, agitation, psychosis, polysubstance use, hyperlipidemia, . MEDICATIONS: Reviewed, Wellbutrin, MiraLAX, Flagyl, Anusol, hydrocortisone, Colace, Lexapro, Namenda, , Zosyn, artificial tears, and Seroquel. ALLERGIES: Sulfa drugs. SOCIAL HISTORY: No alcohol, tobacco or illicit drug use. FAMILY HISTORY: Noncontributory. REVIEW OF SYSTEMS: CONSTITUTIONAL: No fever, chills, or night sweats. SKIN: No rashes, bumps, or itching. HEENT: No headache, hearing or vision changes. BREASTS: No lumps, pain, or discharge. PULMONARY: No cough, sputum, or shortness of breath. GASTROINTESTINAL: No nausea, vomiting, or diarrhea. GENITOURINARY: No dysuria, frequency, or urgency. MUSCULOSKELETAL: No joint swelling, muscle pain, or trauma. PHYSICAL EXAMINATION: GENERAL: No acute distress. VITAL SIGNS: Reviewed. PULMONARY: Decreased breath sounds. CARDIOVASCULAR: Regular rate. No S3 or S4. ABDOMEN: Soft, nontender, and nondistended. EXTREMITIES: A 1+ edema. LABORATORY AND DIAGNOSTIC DATA: Labs again reviewed. WBC 24,000, hemoglobin 12, hematocrit 35, MCV of 100, and platelet count 19,000, but continues to be decreasing, monocytes 25%. BUN of 20 and creatinine 0.9. ASSESSMENT AND RECOMMENDATIONS: 1. Severe thrombocytopenia, it is likely related to underlying infection/sepsis and the degree of leukocytosis. Continue antibiotics, Flagyl and Zosyn as per ID service, though Zosyn may be the source of thrombocytopenia, however, benefits outweigh the risks. It may take several days for the platelet count to increase. Platelet count goal is above 10,000 if no fever and 20,000 if the patient is having a fever. Again, we will hold off on any major surgery until the platelet count increases. 2. Leukocytosis, likely certainly due to underlying infection. We will continue to monitor. 3. Lactic acidosis. 4. Bronchitis versus other etiology contributing to thrombocytopenia and leukocytosis. ENT to evaluate for any significant infection. 5. Anxiety. 6. Chronic pain syndrome. 7. Monocytosis secondary to underlying infection. 8. Medications have been reviewed. 9. We will order for flow cytometry to make sure we are not dealing with leukemia. I appreciate the consultation. Luis Maldonado M.D. DR: JOVANNI JOB#: [id number] CC:
[2017-10-04] MEDS: D5 1/2NS w/KCl 20mEq 1,000 ML IV SCH ×2 (03:19→19:31)
[2017-10-04 04:00] VITALS: BP 147/98
--- NOTE | 2017-10-04 04:45 | Procedure Note ---
DATE OF PROCEDURE: 10/03/2017 GASTROENTEROLOGY PROCEDURE REPORT PROCEDURE: Flexible sigmoidoscopy with biopsy. SURGEON: Piotr Diallo M.D. ANESTHESIA: Please see the separate report. PRE-ENDOSCOPIC DIAGNOSIS: Abnormal CT scan with elevated white count. POST-ENDOSCOPIC DIAGNOSES: 1. Circumferential mucosal erythema and edema with superficial necrosis consistent with ischemic colitis. 2. Changes identified to extend all the way to 40 cm and beyond, although this was the extent of examination. 3. Status post random biopsy of the sigmoid colon. PROCEDURE IN DETAIL: The procedure, its risks, indications, alternatives, and possible complications were explained to the patient's family and informed consent was obtained. The sigmoidoscope was introduced into the rectum and advanced to the 40 cm [place]. The stool prevented further advancement. The colonoscope was then gradually withdrawn and the mucosa examined carefully. Through the length examined, there was circumferential mucosal erythema, granularity, friability, and patchy superficial necrosis consistent with severe ischemic distal colitis. However, by visual criteria, the colonic wall did not appear to be extensive with full-thickness necrosis. Most of the necrotic areas appeared very superficial in the mucosa. Photodocumentation was obtained and biopsies were sent to pathology for review. RECOMMENDATIONS: 1. Follow up biopsy results. 2. Restart feeding. 3. Watch for rectal bleeding if and when the rectal mucosa to recovery. 4. May need platelet transfusion if bleeding is identified. 5. Hematology evaluation. Thank you for asking me to participate in the care of this patient. Piotr Diallo M.D. DR: Lisa JOB#: [id number] CC: MIGEL
[2017-10-04] MEDS: Piperacillin/Tazobactam 3.375 GM in D5W 55 ML IVPB SCH ×3 (05:51→21:55)
[2017-10-04] MEDS: metroNIDAZOLE 500mg tab ORAL SCH ×3 (05:51→21:55)
[2017-10-04 08:10] LABS: MEAN CORPUSCULAR HEMOGLOBIN 33.7 PG (27.0-31.0); MEAN CORPUSCULAR VOLUME 99 FL (80-99); MEAN PLATELET VOLUME 13.2 FL (6.5-10.1); PLATELET COUNT 26 K/UL (150-450); RED BLOOD COUNT 3.24 M/UL (4.20-5.40); RED CELL DISTRIBUTION WIDTH 13.3 % (11.6-14.8); WHITE BLOOD COUNT 20.7 K/UL (4.8-10.8)
[2017-10-04 08:21] VITALS: BP 139/60
[2017-10-04 08:24] LABS: ALANINE AMINOTRANSFERASE 34 U/L (12-78); ALBUMIN/GLOBULIN RATIO 1.2 (1.0-2.7); ANION GAP 9 mmol/L (5-15); ASPARTATE AMINO TRANSFERASE 24 U/L (15-37); CALCIUM 8.2 MG/DL (8.5-10.1); CARBON DIOXIDE 22 MMOL/L (21-32); CHLORIDE 118 MMOL/L (98-107); CREATININE 0.7 MG/DL (0.55-1.30); POTASSIUM 3.3 MMOL/L (3.5-5.1); SODIUM 149 MMOL/L (136-145); TOTAL PROTEIN 4.9 G/DL (6.4-8.2)
[2017-10-04 08:34] LABS: REFLEX LACTIC ACID YES OR NO YES
[2017-10-04] MEDS: Memantine 10mg tab ORAL SCH ×2 (10:10→18:49)
[2017-10-04] MEDS: Sinemet 25/100 tab ORAL SCH ×2 (10:10→18:45)
[2017-10-04] MEDS: Escitalopram Oxalate 5mg tab ORAL SCH (10:10)
[2017-10-04] MEDS: BuPROPion 75mg Tab ORAL SCH (10:11)
[2017-10-04] MEDS: Pantoprazole Inj IVP SCH (10:13)
[2017-10-04 10:56] LABS: BAND NEUTROPHILS % (MANUAL) 0 % (0-8); BASOPHILS % (MANUAL) 1 % (0-2); EOSINOPHILS % (MANUAL) 0 % (0-3); LYMPHOCYTES % (MANUAL) 16 % (20-45); NEUTROPHILS % (MANUAL) 42 % (45-75); PLATELET ESTIMATE DECREASED; TOTAL CELLS COUNTED 100
[2017-10-04 10:57] LABS: PLATELET MORPHOLOGY NORMAL
[2017-10-04 10:59] LABS: MACROCYTES 1+
[2017-10-04 11:37] VITALS: BP 105/61
--- NOTE | 2017-10-04 14:42 | Infectious Diseases Prog Note ---
Assessment/Plan Assessment/Plan ASSESSMENT AND PLAN: 1. sepsis, proctitis, ischemic colitis seen on flex/sig, fecal impaction, leukocytosis - leukocytosis improving - continue zosyn and flagyl - continue treatment per Dr. Moody and GI - watch labs 2. The patient has history of hypertension. Blood pressure treatment per Dr. Moody. 3. Gastrointestinal bleed, thrombocytopenia 4. History of bilateral leg contractures. 5. Cerebrovascular accident. 6. Left hemiparesis. 7. Chest x-ray does not show any pneumonia. 8. Urinalysis is benign. 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 11. Chronic pain syndrome. 12. History of depression. 13. Anxiety. 14. Agitation. 15. Psychosis. 16. Parkinson's. 17. Thrombocytopenia. 18. Anemia. 19. Allergy to sulfa. 20. Social history is negative. 21. MAR was noted. 22. Family History noncontributory. 23. Continue treatment per Dr. Moody and Gastroenterology. 24. Skin care protocol. 25. Case discussed with Dr. Moody. 26. Case discussed with RN. Subjective Constitutional: Denies: fever HEENT: Denies: congestion Respiratory: Denies: shortness of breath Cardiovascular: Denies: chest pain Gastrointestinal/Abdominal: Denies: nausea, vomiting, diarrhea Genitourinary: Reports: other - no pabon Neurologic: Denies: headache Psychiatric: Denies: depression Skin: Denies: rash Hematologic: Denies: bleeding Musculoskeletal: Denies: pain Allergies: Coded Allergies: SULFA (SULFONAMIDE ANTIBIOTICS) (Verified Allergy, Unknown, 10/12/15) Objective Vital Signs Last 24 Hour Vital Signs Date Time Temp Pulse Resp B/P (MAP) Pulse Ox O2 Delivery O2 Flow Rate FiO2 10/04/17 12:00 54 10/04/17 11:37 97.3 66 20 105/61 92 Room Air 10/04/17 08:21 97.7 63 20 139/60 93 Room Air 10/04/17 08:00 62 10/04/17 04:00 97.8 80 20 147/98 96 Nasal Cannula 2.0 10/04/17 04:00 59 10/04/17 00:00 67 10/04/17 00:00 98.1 64 22 133/63 88 Room Air 10/03/17 21:29 155/115 10/03/17 20:00 98.2 77 22 145/61 93 Room Air 10/03/17 20:00 70 10/03/17 18:23 74 20 98 10/03/17 16:00 97.8 78 20 110/86 95 Room Air 10/03/17 15:47 97.8 64 20 111/52 99 Nasal Cannula 2.0 10/03/17 15:42 58 20 106/43 100 Nasal Cannula 2.0 10/03/17 15:29 72 20 98 10/03/17 15:27 60 20 106/45 100 Nasal Cannula 2.0 10/03/17 15:22 71 20 104/48 100 Nasal Cannula 2.0 10/03/17 15:17 97.9 70 20 101/50 100 Nasal Cannula 2.0 Height (Feet): 4 Height (Inches): 9.00 Weight (Pounds): 94 General Appearance: no acute distress HEENT: normocephalic, atraumatic, anicteric, mucous membranes moist, EOMI, pharynx normal, supple, no JVD Respiratory/Chest: lungs clear, normal breath sounds, no respiratory distress, no accessory muscle use Cardiovascular: normal rate, regular rhythm, no gallop/murmur, no JVD Abdomen: normal bowel sounds, soft, non tender, no organomegaly, non distended Genitourinary: other - no pabon Extremities: no cyanosis Skin: no rash 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 Complete 09/29/17 16:47 Rectum VRE Culture - Final NO VANCOMYCIN RESISTANT ENTEROCOCCUS ... Complete Laboratory Tests Test 10/04/17 07:20 10/04/17 11:15 White Blood Count 20.7 K/UL (4.8-10.8) H Red Blood Count 3.24 M/UL (4.20-5.40) L Hemoglobin 10.9 G/DL (12.0-16.0) L Hematocrit 32.1 % (37.0-47.0) L Mean Corpuscular Volume 99 FL (80-99) Mean Corpuscular Hemoglobin 33.7 PG (27.0-31.0) H Mean Corpuscular Hemoglobin Concent 34.0 G/DL (32.0-36.0) Red Cell Distribution Width 13.3 % (11.6-14.8) Platelet Count 26 K/UL (150-450) L Mean Platelet Volume 13.2 FL (6.5-10.1) H Neutrophils (%) (Auto) % (45.0-75.0) Lymphocytes (%) (Auto) % (20.0-45.0) Monocytes (%) (Auto) % (1.0-10.0) Eosinophils (%) (Auto) % (0.0-3.0) Basophils (%) (Auto) % (0.0-2.0) Differential Total Cells Counted 100 Neutrophils % (Manual) 42 % (45-75) L Lymphocytes % (Manual) 16 % (20-45) L Monocytes % (Manual) 41 % (1-10) H Eosinophils % (Manual) 0 % (0-3) Basophils % (Manual) 1 % (0-2) Band Neutrophils 0 % (0-8) Platelet Estimate Decreased L Platelet Morphology Normal Macrocytosis 1+ Sodium Level 149 MMOL/L (136-145) H Potassium Level 3.3 MMOL/L (3.5-5.1) L Chloride Level 118 MMOL/L (98-107) H Carbon Dioxide Level 22 MMOL/L (21-32) Anion Gap 9 mmol/L (5-15) Blood Urea Nitrogen 13 mg/dL (7-18) Creatinine 0.7 MG/DL (0.55-1.30) Estimat Glomerular Filtration Rate mL/min (>60) Glucose Level 171 MG/DL (74-106) H Lactic Acid Level 2.00 mmol/L (0.66-2.22) 2.80 mmol/L (0.66-2.22) H Calcium Level 8.2 MG/DL (8.5-10.1) L Total Bilirubin 0.6 MG/DL (0.2-1.0) Aspartate Amino Transf (AST/SGOT) 24 U/L (15-37) Alanine Aminotransferase (ALT/SGPT) 34 U/L (12-78) Alkaline Phosphatase 64 U/L (46-116) Total Creatine Kinase 47 U/L (26-308) Total Protein 4.9 G/DL (6.4-8.2) L Albumin 2.7 G/DL (3.4-5.0) L Globulin 2.2 g/dL Albumin/Globulin Ratio 1.2 (1.0-2.7) Current Medications Medications (Trade) Dose Ordered Sig/Anabella Route PRN Reason Start Time Stop Time Status Last Admin Dose Admin Acetaminophen (Tylenol) 650 mg Q6H PRN ORAL Mild Pain/Temp > 100.5 10/01/17 19:15 10/31/17 19:14 10/03/17 04:15 Artificial Tears (Lacri-Lube) 1 applic BEDTIME LEFT EYE 09/29/17 22:00 10/29/17 21:59 10/03/17 21:19 Bupropion HCl (Wellbutrin) 75 mg DAILY ORAL 10/01/17 09:00 10/31/17 08:59 10/04/17 10:11 Carbidopa/Levodopa (Sinemet 25/100) 1 ea BID ORAL 09/30/17 09:00 10/30/17 08:59 10/04/17 10:10 Dextrose/ Electrolytes 1,000 ml @ 125 mls/hr Q8H IV 10/04/17 16:00 11/03/17 15:59 10/04/17 03:19 Escitalopram Oxalate (Lexapro) 5 mg DAILY ORAL 09/30/17 09:00 10/30/17 08:59 10/04/17 10:10 Hydrocortisone (Anusol HC) 1 applic TWICE A DAY RECTAL 09/30/17 18:00 10/30/17 17:59 10/04/17 10:11 Lisinopril (Zestril) 30 mg BEDTIME ORAL 09/29/17 22:00 10/29/17 21:59 10/03/17 21:29 Memantine (Namenda) 10 mg BID ORAL 09/30/17 09:00 10/30/17 08:59 10/04/17 10:10 Metronidazole (Flagyl) 500 mg EVERY 8 HOURS ORAL 10/01/17 22:00 10/07/17 17:59 10/04/17 05:51 Pantoprazole (Protonix) 40 mg DAILY IVP 09/30/17 09:00 10/30/17 08:59 10/04/17 10:13 Patient Own Medication (Patient's Own Med) 1 ea Q2H ORAL 10/03/17 00:00 11/02/17 00:00 10/04/17 10:09 Piperacillin Sod/ Tazobactam Sod 3.375 gm/Dextrose 55 ml @ 13.75 mls/ hr Q8HR IVPB 10/02/17 14:00 10/09/17 13:59 10/04/17 05:51 Polyethylene Glycol (Miralax) 34 gm BEDTIME ORAL 10/03/17 21:00 11/02/17 20:59 Quetiapine Fumarate (SEROquel) 25 mg DAILY ORAL 09/30/17 09:00 10/30/17 08:59 10/04/17 10:10 Quetiapine Fumarate (SEROquel) 150 mg BEDTIME ORAL 09/29/17 22:00 10/29/17 21:59 10/03/17 21:20 ERIKA FRAIRE Oct 04, 2017 14:42
--- NOTE | 2017-10-04 15:38 | Geriatric Progress Note ---
Assessment/Plan Problems: (1) Chronic pain disorder (2) Anxiety (3) Depression (4) Gait disorder (5) Hemiparesis affecting left side as late effect of cerebrovascular accident (6) Pseudobulbar affect (7) Monocytosis (8) Proctitis (9) Leukocytosis (10) Fecal impaction in rectum (11) Acute ischemic colitis (12) Dysphagia Assessment/Plan Ischemic colitis, to be treated conservatively. Will watch overnight, if continues to remain stable, plan d/c to SNF for IV support, antibiotics, and monitoring. Discussed with: patient, family, hospital staff, other - caregiver. Subjective Interval Events Patient reports discomfort, apparently in L groin area. Unclear if this represents actual discomfort. Has not eaten well today, spit out meds. Results of flex sig reviewed in detail with Dr. Diallo. Superficial necrosis of colon, probably not transmural, due to impaction-induced ischemia. Hopefully , will heal within week or two, although obviously may have decreased motility or strictures. Reviewed with son, Ziggy. Consensus to treat conservatively with understood risk of bleeding, sepsis, . Agreeable to d/c to SNF for IVF, antibiotics, monitoring. Reviewed with Dr. Griffith, continue Zosyn, p.o. Flagyl another week or so depending on wbc, clinical response. S.T. noted cough, but patient already on puree and thickener at baseline, GT not desired, so swallow study not helpful. Note leukocytosis somewhat better, with continuing monocytosis, thrombocytopenia. Hct stable. Renal function stable, elevated lactate. Constitutional: Reports: pain, Denies: chills, fever Respiratory: Denies: shortness of breath Cardiovascular: Denies: chest pain Gastrointestinal/Abdominal: Denies: vomiting Genitourinary: Denies: dysuria Geriatric Geriatric Last 24 Hour Vital Signs Date Time Temp Pulse Resp B/P (MAP) Pulse Ox O2 Delivery O2 Flow Rate FiO2 10/04/17 12:00 54 10/04/17 11:37 97.3 66 20 105/61 92 Room Air 10/04/17 08:21 97.7 63 20 139/60 93 Room Air 10/04/17 08:00 62 10/04/17 04:00 97.8 80 20 147/98 96 Nasal Cannula 2.0 10/04/17 04:00 59 10/04/17 00:00 67 10/04/17 00:00 98.1 64 22 133/63 88 Room Air 10/03/17 21:29 155/115 10/03/17 20:00 98.2 77 22 145/61 93 Room Air 10/03/17 20:00 70 10/03/17 18:23 74 20 98 10/03/17 16:00 97.8 78 20 110/86 95 Room Air 10/03/17 15:47 97.8 64 20 111/52 99 Nasal Cannula 2.0 10/03/17 15:42 58 20 106/43 100 Nasal Cannula 2.0 10/03/17 15:29 72 20 98 10/03/17 15:27 60 20 106/45 100 Nasal Cannula 2.0 10/03/17 15:22 71 20 104/48 100 Nasal Cannula 2.0 10/03/17 15:17 97.9 70 20 101/50 100 Nasal Cannula 2.0 Intake and Output 10/04/17 10/05/17 19:00 07:00 Intake Total 120 ml Balance 120 ml Intake Oral 120 ml # Voids 1 # Bowel Movements 1 Laboratory Tests Test 10/04/17 07:20 10/04/17 11:15 White Blood Count 20.7 K/UL (4.8-10.8) H Red Blood Count 3.24 M/UL (4.20-5.40) L Hemoglobin 10.9 G/DL (12.0-16.0) L Hematocrit 32.1 % (37.0-47.0) L Mean Corpuscular Volume 99 FL (80-99) Mean Corpuscular Hemoglobin 33.7 PG (27.0-31.0) H Mean Corpuscular Hemoglobin Concent 34.0 G/DL (32.0-36.0) Red Cell Distribution Width 13.3 % (11.6-14.8) Platelet Count 26 K/UL (150-450) L Mean Platelet Volume 13.2 FL (6.5-10.1) H Neutrophils (%) (Auto) % (45.0-75.0) Lymphocytes (%) (Auto) % (20.0-45.0) Monocytes (%) (Auto) % (1.0-10.0) Eosinophils (%) (Auto) % (0.0-3.0) Basophils (%) (Auto) % (0.0-2.0) Differential Total Cells Counted 100 Neutrophils % (Manual) 42 % (45-75) L Lymphocytes % (Manual) 16 % (20-45) L Monocytes % (Manual) 41 % (1-10) H Eosinophils % (Manual) 0 % (0-3) Basophils % (Manual) 1 % (0-2) Band Neutrophils 0 % (0-8) Platelet Estimate Decreased L Platelet Morphology Normal Macrocytosis 1+ Sodium Level 149 MMOL/L (136-145) H Potassium Level 3.3 MMOL/L (3.5-5.1) L Chloride Level 118 MMOL/L (98-107) H Carbon Dioxide Level 22 MMOL/L (21-32) Anion Gap 9 mmol/L (5-15) Blood Urea Nitrogen 13 mg/dL (7-18) Creatinine 0.7 MG/DL (0.55-1.30) Estimat Glomerular Filtration Rate mL/min (>60) Glucose Level 171 MG/DL (74-106) H Lactic Acid Level 2.00 mmol/L (0.66-2.22) 2.80 mmol/L (0.66-2.22) H Calcium Level 8.2 MG/DL (8.5-10.1) L Total Bilirubin 0.6 MG/DL (0.2-1.0) Aspartate Amino Transf (AST/SGOT) 24 U/L (15-37) Alanine Aminotransferase (ALT/SGPT) 34 U/L (12-78) Alkaline Phosphatase 64 U/L (46-116) Total Creatine Kinase 47 U/L (26-308) Total Protein 4.9 G/DL (6.4-8.2) L Albumin 2.7 G/DL (3.4-5.0) L Globulin 2.2 g/dL Albumin/Globulin Ratio 1.2 (1.0-2.7) Current Medications Medications (Trade) Dose Ordered Sig/Anabella Route PRN Reason Start Time Stop Time Status Last Admin Dose Admin Acetaminophen (Tylenol) 650 mg Q6H PRN ORAL Mild Pain/Temp > 100.5 10/01/17 19:15 10/31/17 19:14 10/03/17 04:15 Artificial Tears (Lacri-Lube) 1 applic BEDTIME LEFT EYE 09/29/17 22:00 10/29/17 21:59 10/03/17 21:19 Bupropion HCl (Wellbutrin) 75 mg DAILY ORAL 10/01/17 09:00 10/31/17 08:59 10/04/17 10:11 Carbidopa/Levodopa (Sinemet 25/100) 1 ea BID ORAL 09/30/17 09:00 10/30/17 08:59 10/04/17 10:10 Dextrose/ Electrolytes 1,000 ml @ 125 mls/hr Q8H IV 10/04/17 16:00 11/03/17 15:59 10/04/17 03:19 Escitalopram Oxalate (Lexapro) 5 mg DAILY ORAL 09/30/17 09:00 10/30/17 08:59 10/04/17 10:10 Hydrocortisone (Anusol HC) 1 applic TWICE A DAY RECTAL 09/30/17 18:00 10/30/17 17:59 10/04/17 10:11 Lisinopril (Zestril) 30 mg BEDTIME ORAL 09/29/17 22:00 10/29/17 21:59 10/03/17 21:29 Memantine (Namenda) 10 mg BID ORAL 09/30/17 09:00 10/30/17 08:59 10/04/17 10:10 Metronidazole (Flagyl) 500 mg EVERY 8 HOURS ORAL 10/01/17 22:00 10/07/17 17:59 10/04/17 15:05 Pantoprazole (Protonix) 40 mg DAILY IVP 09/30/17 09:00 10/30/17 08:59 10/04/17 10:13 Patient Own Medication (Patient's Own Med) 1 ea Q2H ORAL 10/03/17 00:00 11/02/17 00:00 10/04/17 10:09 Piperacillin Sod/ Tazobactam Sod 3.375 gm/Dextrose 55 ml @ 13.75 mls/ hr Q8HR IVPB 10/02/17 14:00 10/09/17 13:59 10/04/17 15:04 Polyethylene Glycol (Miralax) 34 gm BEDTIME ORAL 10/03/17 21:00 11/02/17 20:59 Quetiapine Fumarate (SEROquel) 25 mg DAILY ORAL 09/30/17 09:00 10/30/17 08:59 10/04/17 10:10 Quetiapine Fumarate (SEROquel) 150 mg BEDTIME ORAL 09/29/17 22:00 10/29/17 21:59 10/03/17 21:20 Height (Feet): 4 Height (Inches): 9.00 Weight (Pounds): 94 General Appearance: alert, mild distress Head: normocephalic Eyes: bilateral anicteric ENT: normal voice Neck: full range of motion, no mass Respiratory: lungs clear Cardiovascular: regular rate, rhythm Gastrointestinal: normal bowel sounds, soft, no mass, no organomegaly Musculoskeletal: no calf tenderness Edema: no edema noted Generalized Edema: other - L hand IV site. Neurologic: no new focality CASSIE ROA Oct 04, 2017 15:38
[2017-10-04 15:53] VITALS: BP 117/68
[2017-10-04 20:00] VITALS: BP 146/57
--- NOTE | 2017-10-04 20:05 | General Progress Note ---
Assessment/Plan Assessment/Plan Assessment - severe thrombocytopenia - stool impaction - abnormal CT --> distal ischemic colitis - Leukocytosis - OBS - Guarded Recommendations - bowel regimen - push po - IVF - follow WBC and lactate - hopefully will recover with supportive Rx, since poor surgical candidate Subjective Allergies: Coded Allergies: SULFA (SULFONAMIDE ANTIBIOTICS) (Verified Allergy, Unknown, 10/12/15) Subjective above noted agitated this am d/w PMD and with staff anesthesiologist still with leukocytosis lactate elevated today Objective Last 24 Hour Vital Signs Date Time Temp Pulse Resp B/P (MAP) Pulse Ox O2 Delivery O2 Flow Rate FiO2 10/04/17 16:00 59 10/04/17 15:53 97.3 64 20 117/68 94 Room Air 10/04/17 12:00 54 10/04/17 11:37 97.3 66 20 105/61 92 Room Air 10/04/17 08:21 97.7 63 20 139/60 93 Room Air 10/04/17 08:00 62 10/04/17 04:00 97.8 80 20 147/98 96 Nasal Cannula 2.0 10/04/17 04:00 59 10/04/17 00:00 67 10/04/17 00:00 98.1 64 22 133/63 88 Room Air 10/03/17 21:29 155/115 Intake and Output 10/04/17 10/05/17 19:00 07:00 Intake Total 120 ml Balance 120 ml Intake Oral 120 ml # Voids 3 # Bowel Movements 1 Laboratory Tests 10/04/17 07:20: White Blood Count 20.7H, Red Blood Count 3.24L, Hemoglobin 10.9L, Hematocrit 32.1L, Mean Corpuscular Volume 99, Mean Corpuscular Hemoglobin 33.7H, Mean Corpuscular Hemoglobin Concent 34.0, Red Cell Distribution Width 13.3, Platelet Count 26L, Mean Platelet Volume 13.2H, Neutrophils (%) (Auto) , Lymphocytes (%) (Auto) , Monocytes (%) (Auto) , Eosinophils (%) (Auto) , Basophils (%) (Auto) , Differential Total Cells Counted 100, Neutrophils % (Manual) 42L, Lymphocytes % (Manual) 16L, Monocytes % (Manual) 41H, Eosinophils % (Manual) 0, Basophils % ( Manual) 1, Band Neutrophils 0, Platelet Estimate DecreasedL, Platelet Morphology Normal, Macrocytosis 1+, Sodium Level 149H, Potassium Level 3.3L, Chloride Level 118H, Carbon Dioxide Level 22, Anion Gap 9, Blood Urea Nitrogen 13, Creatinine 0.7, Estimat Glomerular Filtration Rate , Glucose Level 171H, Lactic Acid Level 2.00, Calcium Level 8.2L, Total Bilirubin 0.6, Aspartate Amino Transf (AST/SGOT) 24, Alanine Aminotransferase (ALT/SGPT) 34, Alkaline Phosphatase 64, Total Creatine Kinase 47, Total Protein 4.9L, Albumin 2.7L, Globulin 2.2, Albumin/Globulin Ratio 1.2 10/04/17 11:15: Lactic Acid Level 2.80H Height (Feet): 4 Height (Inches): 9.00 Weight (Pounds): 94 Objective Elderly WW agitated with exam NCAT Supple CTA RRR soft NT ND no edema OBS HERSONSHAAN BASILIO Oct 04, 2017 20:05
[2017-10-04] MEDS: Miralax 17gm pkt ORAL SCH (20:44)
[2017-10-04] MEDS: Lacri-Lube Opth Oint 3.5gm LEFT EYE SCH (20:53)
[2017-10-04] MEDS: Lisinopril 10mg tab ORAL SCH (20:54)
[2017-10-05] VITALS: BP 138/66
[2017-10-05] MEDS: DEXTROMETHORPHAN ORAL SCH ×12 (02:00→22:00)
[2017-10-05 04:00] VITALS: BP 126/92
[2017-10-05] MEDS: Piperacillin/Tazobactam 3.375 GM in D5W 55 ML IVPB SCH ×3 (05:51→22:15)
[2017-10-05] MEDS: metroNIDAZOLE 500mg tab ORAL SCH ×3 (05:51→21:25)
[2017-10-05] MEDS: D5 1/2NS w/KCl 20mEq 1,000 ML IV SCH ×2 (05:51→17:55)
[2017-10-05 07:34] LABS: OTHERS PATHOLOGIST COMMENT
[2017-10-05 07:35] LABS: PATH BLOOD SMEAR/OMC SENT TO PATHOLOGIST
[2017-10-05 07:41] LABS: MEAN CORPUSCULAR HEMOGLOBIN 33.9 PG (27.0-31.0); MEAN CORPUSCULAR HGB CONC 34.3 G/DL (32.0-36.0); MEAN CORPUSCULAR VOLUME 99 FL (80-99); MEAN PLATELET VOLUME 11.6 FL (6.5-10.1); PLATELET COUNT 11 K/UL (150-450); RED BLOOD COUNT 3.36 M/UL (4.20-5.40); RED CELL DISTRIBUTION WIDTH 13.1 % (11.6-14.8); WHITE BLOOD COUNT 18.7 K/UL (4.8-10.8)
[2017-10-05 08:08] LABS: ANION GAP 10 mmol/L (5-15); CALCIUM 7.9 MG/DL (8.5-10.1); CARBON DIOXIDE 21 MMOL/L (21-32); CHLORIDE 115 MMOL/L (98-107); CREATININE 0.7 MG/DL (0.55-1.30); POTASSIUM 3.2 MMOL/L (3.5-5.1); SODIUM 146 MMOL/L (136-145)
[2017-10-05 08:17] VITALS: BP 127/62
[2017-10-05 08:52] LABS: BASOPHILS % (MANUAL) 1 % (0-2); EOSINOPHILS % (MANUAL) 1 % (0-3); LYMPHOCYTES % (MANUAL) 12 % (20-45); NEUTROPHILS % (MANUAL) 45 % (45-75); TOTAL CELLS COUNTED 100
[2017-10-05 08:53] LABS: ANISOCYTOSIS 1+; BAND NEUTROPHILS % (MANUAL) 0 % (0-8); HYPOCHROMASIA 1+; PLATELET ESTIMATE DECREASED; PLATELET MORPHOLOGY NORMAL
[2017-10-05] MEDS: Pantoprazole Inj IVP SCH (09:01)
[2017-10-05 09:02] LABS: REFLEX LACTIC ACID YES OR NO YES
[2017-10-05] MEDS: Sinemet 25/100 tab ORAL SCH ×2 (09:03→17:59)
[2017-10-05] MEDS: Memantine 10mg tab ORAL SCH ×2 (09:03→17:59)
[2017-10-05] MEDS: Escitalopram Oxalate 5mg tab ORAL SCH (09:03)
[2017-10-05] MEDS: BuPROPion 75mg Tab ORAL SCH (09:03)
--- NOTE | 2017-10-05 09:17 | General Progress Note ---
Assessment/Plan Assessment/Plan Assessment - severe thrombocytopenia - stool impaction - resolved - abnormal CT --> distal ischemic colitis - Leukocytosis and elevated lactic acid concerning - OBS - Guarded Recommendations - bowel regimen - push po - IVF - follow WBC and lactate on daily basis - hopefully will recover with supportive Rx, since poor surgical candidate Subjective Allergies: Coded Allergies: SULFA (SULFONAMIDE ANTIBIOTICS) (Verified Allergy, Unknown, 10/12/15) Subjective above noted less agitated this am some blood noted in stools by staff research scientist WBC still elevated, but on a slow decline Objective Last 24 Hour Vital Signs Date Time Temp Pulse Resp B/P (MAP) Pulse Ox O2 Delivery O2 Flow Rate FiO2 10/05/17 08:17 96.3 68 20 127/62 92 Room Air 10/05/17 04:00 97.7 67 19 126/92 98 Room Air 10/05/17 04:00 66 10/05/17 00:00 66 10/05/17 00:00 97.5 69 20 138/66 92 Room Air 10/04/17 20:54 145/71 10/04/17 20:00 64 10/04/17 20:00 97.7 70 19 146/57 94 Room Air 10/04/17 16:00 59 10/04/17 15:53 97.3 64 20 117/68 94 Room Air 10/04/17 12:00 54 10/04/17 11:37 97.3 66 20 105/61 92 Room Air Laboratory Tests 10/04/17 11:15: Lactic Acid Level 2.80H 10/05/17 07:10: Lactic Acid Level 2.90H, White Blood Count 18.7H, Red Blood Count 3.36L, Hemoglobin 11.4L, Hematocrit 33.2L, Mean Corpuscular Volume 99, Mean Corpuscular Hemoglobin 33.9H, Mean Corpuscular Hemoglobin Concent 34.3, Red Cell Distribution Width 13.1, Platelet Count 11#L, Mean Platelet Volume 11.6H, Neutrophils (%) (Auto) , Lymphocytes (%) (Auto) , Monocytes (%) (Auto) , Eosinophils (%) (Auto) , Basophils (%) (Auto) , Differential Total Cells Counted 100, Neutrophils % (Manual) 45, Lymphocytes % (Manual) 12L, Monocytes % (Manual) 41H, Eosinophils % (Manual) 1, Basophils % (Manual) 1, Band Neutrophils 0, Platelet Estimate DecreasedL, Platelet Morphology Normal, Hypochromasia 1+, Anisocytosis 1+, Sodium Level 146H, Potassium Level 3.2L, Chloride Level 115H, Carbon Dioxide Level 21, Anion Gap 10, Blood Urea Nitrogen 7, Creatinine 0.7, Estimat Glomerular Filtration Rate , Glucose Level 180H, Calcium Level 7.9L Height (Feet): 4 Height (Inches): 9.00 Weight (Pounds): 94 Objective Elderly WW agitated with exam NCAT Supple CTA RRR soft NT ND no edema OBS SHAAN RODRIGUEZ Oct 05, 2017 09:17
[2017-10-05 11:22] VITALS: BP 119/58
--- NOTE | 2017-10-05 11:53 | General Progress Note ---
Assessment/Plan Assessment/Plan late entry ASSESSMENT AND RECOMMENDATIONS: 1. Severe thrombocytopenia, it is likely related to underlying infection/sepsis. -->Continue antibiotics, per ID service, though Zosyn may be the source of thrombocytopenia.however, benefits outweigh the risks. --> ordered flow cytometry, may need bone marrow biopsy . awaiting response from son 2. Leukocytosis, likely certainly due to underlying infection. We will continue to monitor. 3. Lactic acidosis. 4. Bronchitis versus other etiology contributing to thrombocytopenia and leukocytosis. 5. Anxiety. 6. Chronic pain syndrome. 7. Monocytosis secondary to underlying infection. 8. Medications have been reviewed. Subjective Date patient seen: Oct 04, 2017 Constitutional: Reports: weakness Neurologic/Psychiatric: Reports: emotional problems Allergies: Coded Allergies: SULFA (SULFONAMIDE ANTIBIOTICS) (Verified Allergy, Unknown, 10/12/15) All Systems: reviewed and negative except above Objective Last 24 Hour Vital Signs Date Time Temp Pulse Resp B/P (MAP) Pulse Ox O2 Delivery O2 Flow Rate FiO2 10/05/17 11:22 97.5 85 20 119/58 94 Room Air 10/05/17 08:17 96.3 68 20 127/62 92 Room Air 10/05/17 07:25 68 10/05/17 04:00 97.7 67 19 126/92 98 Room Air 10/05/17 04:00 66 10/05/17 00:00 66 10/05/17 00:00 97.5 69 20 138/66 92 Room Air 10/04/17 20:54 145/71 10/04/17 20:00 64 10/04/17 20:00 97.7 70 19 146/57 94 Room Air 10/04/17 16:00 59 10/04/17 15:53 97.3 64 20 117/68 94 Room Air 10/04/17 12:00 54 Intake and Output 10/05/17 10/06/17 19:00 07:00 Intake Total 240 ml Balance 240 ml Intake Oral 240 ml # Voids 2 # Bowel Movements 2 Laboratory Tests 10/05/17 07:10: White Blood Count 18.7H, Red Blood Count 3.36L, Hemoglobin 11.4L, Hematocrit 33.2L, Mean Corpuscular Volume 99, Mean Corpuscular Hemoglobin 33.9H, Mean Corpuscular Hemoglobin Concent 34.3, Red Cell Distribution Width 13.1, Platelet Count 11#L, Mean Platelet Volume 11.6H, Neutrophils (%) (Auto) , Lymphocytes (% ) (Auto) , Monocytes (%) (Auto) , Eosinophils (%) (Auto) , Basophils (%) (Auto) , Differential Total Cells Counted 100, Neutrophils % (Manual) 45, Lymphocytes % (Manual) 12L, Monocytes % (Manual) 41H, Eosinophils % (Manual) 1, Basophils % (Manual) 1, Band Neutrophils 0, Platelet Estimate DecreasedL, Platelet Morphology Normal, Hypochromasia 1+, Anisocytosis 1+, Sodium Level 146H, Potassium Level 3.2L, Chloride Level 115H, Carbon Dioxide Level 21, Anion Gap 10 , Blood Urea Nitrogen 7, Creatinine 0.7, Estimat Glomerular Filtration Rate , Glucose Level 180H, Lactic Acid Level 2.90H, Calcium Level 7.9L Height (Feet): 4 Height (Inches): 9.00 Weight (Pounds): 94 General Appearance: no apparent distress EENT: normal ENT inspection Neck: normal alignment Cardiovascular: normal peripheral pulses Skin: normal pigmentation Luis Maldonado Oct 05, 2017 11:53
--- NOTE | 2017-10-05 15:59 | General Progress Note ---
Assessment/Plan Assessment/Plan ASSESSMENT AND RECOMMENDATIONS: 1. Severe thrombocytopenia, it is likely related to underlying infection/sepsis. -->Continue antibiotics, per ID service, though Zosyn may be the source of thrombocytopenia.however, benefits outweigh the risks. --> ordered flow cytometry, may need bone marrow biopsy . awaiting response from son 2. Leukocytosis, likely certainly due to underlying infection. We will continue to monitor. 3. Lactic acidosis. 4. Bronchitis versus other etiology contributing to thrombocytopenia and leukocytosis. 5. Anxiety. 6. Chronic pain syndrome. 7. Monocytosis secondary to underlying infection. 8. Medications have been reviewed. Subjective Constitutional: Reports: weakness Allergies: Coded Allergies: SULFA (SULFONAMIDE ANTIBIOTICS) (Verified Allergy, Unknown, 10/12/15) All Systems: reviewed and negative except above Subjective no events overnight, still has small amount of blood in stool per RN Objective Last 24 Hour Vital Signs Date Time Temp Pulse Resp B/P (MAP) Pulse Ox O2 Delivery O2 Flow Rate FiO2 10/05/17 11:41 68 10/05/17 11:22 97.5 85 20 119/58 94 Room Air 10/05/17 08:17 96.3 68 20 127/62 92 Room Air 10/05/17 07:25 68 10/05/17 04:00 97.7 67 19 126/92 98 Room Air 10/05/17 04:00 66 10/05/17 00:00 66 10/05/17 00:00 97.5 69 20 138/66 92 Room Air 10/04/17 20:54 145/71 10/04/17 20:00 64 10/04/17 20:00 97.7 70 19 146/57 94 Room Air 10/04/17 16:00 59 Intake and Output 10/05/17 10/06/17 19:00 07:00 Intake Total 1151.25 ml Balance 1151.25 ml Intake Oral 360 ml IV Total 791.25 ml # Voids 4 # Bowel Movements 2 Laboratory Tests 10/05/17 07:10: White Blood Count 18.7H, Red Blood Count 3.36L, Hemoglobin 11.4L, Hematocrit 33.2L, Mean Corpuscular Volume 99, Mean Corpuscular Hemoglobin 33.9H, Mean Corpuscular Hemoglobin Concent 34.3, Red Cell Distribution Width 13.1, Platelet Count 11#L, Mean Platelet Volume 11.6H, Neutrophils (%) (Auto) , Lymphocytes (% ) (Auto) , Monocytes (%) (Auto) , Eosinophils (%) (Auto) , Basophils (%) (Auto) , Differential Total Cells Counted 100, Neutrophils % (Manual) 45, Lymphocytes % (Manual) 12L, Monocytes % (Manual) 41H, Eosinophils % (Manual) 1, Basophils % (Manual) 1, Band Neutrophils 0, Platelet Estimate DecreasedL, Platelet Morphology Normal, Hypochromasia 1+, Anisocytosis 1+, Sodium Level 146H, Potassium Level 3.2L, Chloride Level 115H, Carbon Dioxide Level 21, Anion Gap 10 , Blood Urea Nitrogen 7, Creatinine 0.7, Estimat Glomerular Filtration Rate , Glucose Level 180H, Lactic Acid Level 2.90H, Calcium Level 7.9L Height (Feet): 4 Height (Inches): 9.00 Weight (Pounds): 94 General Appearance: no apparent distress EENT: normal ENT inspection Neck: normal alignment Cardiovascular: normal peripheral pulses Respiratory/Chest: lungs clear Extremities: normal inspection Edema: trace edema Luis Maldonado Oct 05, 2017 15:59
[2017-10-05 16:04] VITALS: BP 119/45
--- NOTE | 2017-10-05 18:09 | Geriatric Progress Note ---
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 Reviewed with son in detail. Given issue of ischemic colitis, patient's inability to tolerate chemotx, definitive diagnosis of CMML unlikely to be helpful therapeutically. Possibility of acute transformation reviewed. Son wishes to pursue conservative approach and to defer bone marrow at this time. Reviewed prognosis, course expectations. Son confirms concensus to d/c to SNF for further stabilization and monitoring. Patient currently more agitated and labile. D/c postponed till am at family request. SNF will hold bed. Continue current approach. Discussed with: patient, family, hospital staff Subjective Interval Events Patient more labile this p.m., c/o pain in groin or perianal, difficulty to localize. Was calm through day, poor intake, some heme per rectum. VSS stable through day. Discussed with Dr. Maldonado. 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 Labs revealed persistent elevation of lactate. Stable Hct, drop in plt count. Constitutional: Denies: chills, sweats, fever Respiratory: Denies: shortness of breath Cardiovascular: Denies: chest pain Genitourinary: Denies: dysuria Geriatric Geriatric Last 24 Hour Vital Signs Date Time Temp Pulse Resp B/P (MAP) Pulse Ox O2 Delivery O2 Flow Rate FiO2 10/05/17 16:04 97.1 80 20 119/45 94 Room Air 10/05/17 15:22 84 10/05/17 11:41 68 10/05/17 11:22 97.5 85 20 119/58 94 Room Air 10/05/17 08:17 96.3 68 20 127/62 92 Room Air 10/05/17 07:25 68 10/05/17 04:00 97.7 67 19 126/92 98 Room Air 10/05/17 04:00 66 10/05/17 00:00 66 10/05/17 00:00 97.5 69 20 138/66 92 Room Air 10/04/17 20:54 145/71 10/04/17 20:00 64 10/04/17 20:00 97.7 70 19 146/57 94 Room Air Intake and Output 10/05/17 10/06/17 19:00 07:00 Intake Total 1646.25 ml Balance 1646.25 ml Intake Oral 480 ml IV Total 1166.25 ml # Voids 5 # Bowel Movements 2 Laboratory Tests Test 10/05/17 07:10 White Blood Count 18.7 K/UL (4.8-10.8) H Red Blood Count 3.36 M/UL (4.20-5.40) L Hemoglobin 11.4 G/DL (12.0-16.0) L Hematocrit 33.2 % (37.0-47.0) L Mean Corpuscular Volume 99 FL (80-99) Mean Corpuscular Hemoglobin 33.9 PG (27.0-31.0) H Mean Corpuscular Hemoglobin Concent 34.3 G/DL (32.0-36.0) Red Cell Distribution Width 13.1 % (11.6-14.8) Platelet Count 11 K/UL (150-450) #L Mean Platelet Volume 11.6 FL (6.5-10.1) H Neutrophils (%) (Auto) % (45.0-75.0) Lymphocytes (%) (Auto) % (20.0-45.0) Monocytes (%) (Auto) % (1.0-10.0) Eosinophils (%) (Auto) % (0.0-3.0) Basophils (%) (Auto) % (0.0-2.0) Differential Total Cells Counted 100 Neutrophils % (Manual) 45 % (45-75) Lymphocytes % (Manual) 12 % (20-45) L Monocytes % (Manual) 41 % (1-10) H Eosinophils % (Manual) 1 % (0-3) Basophils % (Manual) 1 % (0-2) Band Neutrophils 0 % (0-8) Platelet Estimate Decreased L Platelet Morphology Normal Hypochromasia 1+ Anisocytosis 1+ Sodium Level 146 MMOL/L (136-145) H Potassium Level 3.2 MMOL/L (3.5-5.1) L Chloride Level 115 MMOL/L (98-107) H Carbon Dioxide Level 21 MMOL/L (21-32) Anion Gap 10 mmol/L (5-15) Blood Urea Nitrogen 7 mg/dL (7-18) Creatinine 0.7 MG/DL (0.55-1.30) Estimat Glomerular Filtration Rate mL/min (>60) Glucose Level 180 MG/DL (74-106) H Lactic Acid Level 2.90 mmol/L (0.66-2.22) H Calcium Level 7.9 MG/DL (8.5-10.1) L Current Medications Medications (Trade) Dose Ordered Sig/Anabella Route PRN Reason Start Time Stop Time Status Last Admin Dose Admin Acetaminophen (Tylenol) 650 mg Q6H PRN ORAL Mild Pain/Temp > 100.5 10/01/17 19:15 10/31/17 19:14 10/03/17 04:15 Artificial Tears (Lacri-Lube) 1 applic BEDTIME LEFT EYE 09/29/17 22:00 10/29/17 21:59 10/04/17 20:53 Bupropion HCl (Wellbutrin) 75 mg DAILY ORAL 10/01/17 09:00 10/31/17 08:59 10/05/17 09:03 Carbidopa/Levodopa (Sinemet 25/100) 1 ea BID ORAL 09/30/17 09:00 10/30/17 08:59 10/05/17 09:03 Dextrose/ Electrolytes 1,000 ml @ 125 mls/hr Q8H IV 10/04/17 16:00 11/03/17 15:59 10/05/17 05:51 Escitalopram Oxalate (Lexapro) 5 mg DAILY ORAL 09/30/17 09:00 10/30/17 08:59 10/05/17 09:03 Hydrocortisone (Anusol HC) 1 applic TWICE A DAY RECTAL 09/30/17 18:00 10/30/17 17:59 10/05/17 09:03 Lisinopril (Zestril) 30 mg BEDTIME ORAL 09/29/17 22:00 10/29/17 21:59 10/04/17 20:54 Memantine (Namenda) 10 mg BID ORAL 09/30/17 09:00 10/30/17 08:59 10/05/17 09:03 Metronidazole (Flagyl) 500 mg EVERY 8 HOURS ORAL 10/01/17 22:00 10/07/17 17:59 10/05/17 14:54 Pantoprazole (Protonix) 40 mg DAILY IVP 09/30/17 09:00 10/30/17 08:59 10/05/17 09:01 Patient Own Medication (Patient's Own Med) 1 ea Q2H ORAL 10/03/17 00:00 11/02/17 00:00 10/05/17 16:00 Piperacillin Sod/ Tazobactam Sod 3.375 gm/Dextrose 55 ml @ 13.75 mls/ hr Q8HR IVPB 10/02/17 14:00 10/09/17 13:59 10/05/17 16:04 Polyethylene Glycol (Miralax) 34 gm BEDTIME ORAL 10/03/17 21:00 11/02/17 20:59 Quetiapine Fumarate (SEROquel) 25 mg DAILY ORAL 09/30/17 09:00 10/30/17 08:59 10/05/17 09:02 Quetiapine Fumarate (SEROquel) 150 mg BEDTIME ORAL 09/29/17 22:00 10/29/17 21:59 10/04/17 20:54 Height (Feet): 4 Height (Inches): 9.00 Weight (Pounds): 94 General Appearance: alert, non-toxic, other - labile affect as per baseline. Eyes: bilateral anicteric ENT: normal voice Neck: full range of motion, no mass Respiratory: lungs clear Cardiovascular: regular rate, rhythm Gastrointestinal: normal bowel sounds, soft, no mass, no organomegaly, non- distended, tenderness - c/w chronic pain sxs. Musculoskeletal: no calf tenderness Edema: no edema noted Generalized Neurologic: no new focality CASSIE ROA Oct 05, 2017 18:09
--- NOTE | 2017-10-05 19:11 | Infectious Diseases Prog Note ---
Assessment/Plan Assessment/Plan ASSESSMENT AND PLAN: 1. sepsis, proctitis, ischemic colitis seen on flex/sig, fecal impaction, leukocytosis - leukocytosis improving - continue zosyn and flagyl x one week more for 10 day course (may need 14 day total course depending on clinical response) - continue treatment per Dr. Moody and GI - watch labs - d/w Dr. Moody about abx course 2. The patient has history of hypertension. Blood pressure treatment per Dr. Moody. 3. Gastrointestinal bleed, thrombocytopenia 4. History of bilateral leg contractures. 5. Cerebrovascular accident. 6. Left hemiparesis. 7. Chest x-ray does not show any pneumonia. 8. Urinalysis is benign. 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 11. Chronic pain syndrome. 12. History of depression. 13. Anxiety. 14. Agitation. 15. Psychosis. 16. Parkinson's. 17. Thrombocytopenia. 18. Anemia. 19. Allergy to sulfa. 20. Social history is negative. 21. MAR was noted. 22. Family History noncontributory. 23. Continue treatment per Dr. Moody and Gastroenterology. 24. Skin care protocol. 25. Case discussed with Dr. Moody. 26. Case discussed with RN. Subjective Constitutional: Denies: fever HEENT: Denies: congestion Respiratory: Denies: shortness of breath Cardiovascular: Denies: chest pain Gastrointestinal/Abdominal: Denies: nausea Genitourinary: Denies: frequency, nocturia Neurologic: Denies: headache Psychiatric: Denies: depression Skin: Denies: rash Hematologic: Denies: bleeding Musculoskeletal: Denies: pain Allergies: Coded Allergies: SULFA (SULFONAMIDE ANTIBIOTICS) (Verified Allergy, Unknown, 10/12/15) Objective Vital Signs Last 24 Hour Vital Signs Date Time Temp Pulse Resp B/P (MAP) Pulse Ox O2 Delivery O2 Flow Rate FiO2 10/05/17 16:04 97.1 80 20 119/45 94 Room Air 10/05/17 15:22 84 10/05/17 11:41 68 10/05/17 11:22 97.5 85 20 119/58 94 Room Air 10/05/17 08:17 96.3 68 20 127/62 92 Room Air 10/05/17 07:25 68 10/05/17 04:00 97.7 67 19 126/92 98 Room Air 10/05/17 04:00 66 10/05/17 00:00 66 10/05/17 00:00 97.5 69 20 138/66 92 Room Air 10/04/17 20:54 145/71 10/04/17 20:00 64 10/04/17 20:00 97.7 70 19 146/57 94 Room Air Height (Feet): 4 Height (Inches): 9.00 Weight (Pounds): 94 General Appearance: no acute distress HEENT: normocephalic, atraumatic, anicteric, mucous membranes moist Respiratory/Chest: lungs clear, normal breath sounds, no accessory muscle use, respiratory distress Cardiovascular: normal rate, regular rhythm, no gallop/murmur, no JVD Abdomen: normal bowel sounds, soft, non tender, no organomegaly, non distended Genitourinary: other - no pabon Extremities: no cyanosis Skin: no rash 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 Complete 09/29/17 16:47 Rectum VRE Culture - Final NO VANCOMYCIN RESISTANT ENTEROCOCCUS ... Complete Laboratory Tests Test 10/05/17 07:10 White Blood Count 18.7 K/UL (4.8-10.8) H Red Blood Count 3.36 M/UL (4.20-5.40) L Hemoglobin 11.4 G/DL (12.0-16.0) L Hematocrit 33.2 % (37.0-47.0) L Mean Corpuscular Volume 99 FL (80-99) Mean Corpuscular Hemoglobin 33.9 PG (27.0-31.0) H Mean Corpuscular Hemoglobin Concent 34.3 G/DL (32.0-36.0) Red Cell Distribution Width 13.1 % (11.6-14.8) Platelet Count 11 K/UL (150-450) #L Mean Platelet Volume 11.6 FL (6.5-10.1) H Neutrophils (%) (Auto) % (45.0-75.0) Lymphocytes (%) (Auto) % (20.0-45.0) Monocytes (%) (Auto) % (1.0-10.0) Eosinophils (%) (Auto) % (0.0-3.0) Basophils (%) (Auto) % (0.0-2.0) Differential Total Cells Counted 100 Neutrophils % (Manual) 45 % (45-75) Lymphocytes % (Manual) 12 % (20-45) L Monocytes % (Manual) 41 % (1-10) H Eosinophils % (Manual) 1 % (0-3) Basophils % (Manual) 1 % (0-2) Band Neutrophils 0 % (0-8) Platelet Estimate Decreased L Platelet Morphology Normal Hypochromasia 1+ Anisocytosis 1+ Sodium Level 146 MMOL/L (136-145) H Potassium Level 3.2 MMOL/L (3.5-5.1) L Chloride Level 115 MMOL/L (98-107) H Carbon Dioxide Level 21 MMOL/L (21-32) Anion Gap 10 mmol/L (5-15) Blood Urea Nitrogen 7 mg/dL (7-18) Creatinine 0.7 MG/DL (0.55-1.30) Estimat Glomerular Filtration Rate mL/min (>60) Glucose Level 180 MG/DL (74-106) H Lactic Acid Level 2.90 mmol/L (0.66-2.22) H Calcium Level 7.9 MG/DL (8.5-10.1) L Current Medications Medications (Trade) Dose Ordered Sig/Anabella Route PRN Reason Start Time Stop Time Status Last Admin Dose Admin Acetaminophen (Tylenol) 650 mg Q6H PRN ORAL Mild Pain/Temp > 100.5 10/01/17 19:15 10/31/17 19:14 10/03/17 04:15 Artificial Tears (Lacri-Lube) 1 applic BEDTIME LEFT EYE 09/29/17 22:00 10/29/17 21:59 10/04/17 20:53 Bupropion HCl (Wellbutrin) 75 mg DAILY ORAL 10/01/17 09:00 10/31/17 08:59 10/05/17 09:03 Carbidopa/Levodopa (Sinemet 25/100) 1 ea BID ORAL 09/30/17 09:00 10/30/17 08:59 10/05/17 17:59 Dextrose/ Electrolytes 1,000 ml @ 125 mls/hr Q8H IV 10/04/17 16:00 11/03/17 15:59 10/05/17 05:51 Escitalopram Oxalate (Lexapro) 5 mg DAILY ORAL 09/30/17 09:00 10/30/17 08:59 10/05/17 09:03 Hydrocortisone (Anusol HC) 1 applic TWICE A DAY RECTAL 09/30/17 18:00 10/30/17 17:59 10/05/17 17:58 Lisinopril (Zestril) 30 mg BEDTIME ORAL 09/29/17 22:00 10/29/17 21:59 10/04/17 20:54 Memantine (Namenda) 10 mg BID ORAL 09/30/17 09:00 10/30/17 08:59 10/05/17 17:59 Metronidazole (Flagyl) 500 mg EVERY 8 HOURS ORAL 10/01/17 22:00 10/07/17 17:59 10/05/17 14:54 Pantoprazole (Protonix) 40 mg DAILY IVP 09/30/17 09:00 10/30/17 08:59 10/05/17 09:01 Patient Own Medication (Patient's Own Med) 1 ea Q2H ORAL 10/03/17 00:00 11/02/17 00:00 10/05/17 17:58 Piperacillin Sod/ Tazobactam Sod 3.375 gm/Dextrose 55 ml @ 13.75 mls/ hr Q8HR IVPB 10/02/17 14:00 10/09/17 13:59 10/05/17 16:04 Polyethylene Glycol (Miralax) 34 gm BEDTIME ORAL 10/03/17 21:00 11/02/17 20:59 Quetiapine Fumarate (SEROquel) 25 mg DAILY ORAL 09/30/17 09:00 10/30/17 08:59 10/05/17 09:02 Quetiapine Fumarate (SEROquel) 150 mg BEDTIME ORAL 09/29/17 22:00 10/29/17 21:59 10/04/17 20:54 ERIKA FRAIRE Oct 05, 2017 19:11
[2017-10-05 20:13] VITALS: BP 122/57
[2017-10-05] MEDS: Miralax 17gm pkt ORAL SCH (21:00)
[2017-10-05] MEDS: Lacri-Lube Opth Oint 3.5gm LEFT EYE SCH (21:24)
[2017-10-05] MEDS: Lisinopril 10mg tab ORAL SCH (21:24)
[2017-10-06] VITALS: BP 126/66
[2017-10-06] MEDS: D5 1/2NS w/KCl 20mEq 1,000 ML IV SCH (00:30)
[2017-10-06] MEDS: DEXTROMETHORPHAN ORAL SCH ×4 (02:00→06:30)
[2017-10-06 04:00] VITALS: BP 106/58
[2017-10-06] MEDS: Piperacillin/Tazobactam 3.375 GM in D5W 55 ML IVPB SCH (06:00)
[2017-10-06] MEDS: metroNIDAZOLE 500mg tab ORAL SCH (06:30)
[2017-10-06 07:57] LABS: MEAN CORPUSCULAR HEMOGLOBIN 33.1 PG (27.0-31.0); MEAN CORPUSCULAR HGB CONC 33.6 G/DL (32.0-36.0); MEAN CORPUSCULAR VOLUME 98 FL (80-99); PLATELET COUNT 15 K/UL (150-450); RED BLOOD COUNT 3.29 M/UL (4.20-5.40); WHITE BLOOD COUNT 21.2 K/UL (4.8-10.8)
[2017-10-06 08:00] VITALS: BP 121/54
[2017-10-06 08:06] LABS: MEAN PLATELET VOLUME 11.8 FL (6.5-10.1)
[2017-10-06 08:15] LABS: BAND NEUTROPHILS % (MANUAL) 2 % (0-8); BASOPHILS % (MANUAL) 1 % (0-2); EOSINOPHILS % (MANUAL) 1 % (0-3); LYMPHOCYTES % (MANUAL) 11 % (20-45); NEUTROPHILS % (MANUAL) 55 % (45-75); PLATELET ESTIMATE DECREASED; TOTAL CELLS COUNTED 100
[2017-10-06 08:16] LABS: HYPOCHROMASIA 1+; PLATELET MORPHOLOGY NORMAL; SPHEROCYTES 1+
[2017-10-06 08:21] LABS: ALANINE AMINOTRANSFERASE 28 U/L (12-78); ALBUMIN/GLOBULIN RATIO 1.1 (1.0-2.7); ANION GAP 9 mmol/L (5-15); ASPARTATE AMINO TRANSFERASE 21 U/L (15-37); CARBON DIOXIDE 21 MMOL/L (21-32); CHLORIDE 113 MMOL/L (98-107); CREATININE 0.6 MG/DL (0.55-1.30); POTASSIUM 3.9 MMOL/L (3.5-5.1); SODIUM 143 MMOL/L (136-145); TOTAL PROTEIN 4.8 G/DL (6.4-8.2)
[2017-10-06 08:59] LABS: REFLEX LACTIC ACID YES OR NO YES
[2017-10-06] MEDS ORDERED: NS 275ml ONE (09:14)
[2017-10-06] MEDS ORDERED: Tubing Blood Filter IV ONE (09:14)
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
--- NOTE | 2017-10-06 16:03 | Geriatric Progress Note ---
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 Reviewed with son in detail. Given issue of ischemic colitis, patient's inability to tolerate chemotx, definitive diagnosis of CMML unlikely to be helpful therapeutically. Possibility of acute transformation reviewed. Son wishes to pursue conservative approach and to defer bone marrow at this time. Reviewed prognosis, course expectations. Son confirms concensus to d/c to SNF for further stabilization and monitoring. Patient currently more agitated and labile. D/c postponed till am at family request. SNF will hold bed. Continue current approach. Subjective Interval Events Dictated #[id number] Geriatric Geriatric Last 24 Hour Vital Signs Date Time Temp Pulse Resp B/P (MAP) Pulse Ox O2 Delivery O2 Flow Rate FiO2 10/06/17 08:00 97.8 71 18 121/54 93 Room Air 10/06/17 04:00 68 10/06/17 04:00 98.6 70 18 106/58 92 Room Air 10/06/17 00:00 98.0 77 21 126/66 93 Room Air 10/06/17 00:00 78 10/05/17 21:24 122/57 10/05/17 20:13 97.9 53 20 122/57 91 Room Air 10/05/17 20:00 72 10/05/17 16:04 97.1 80 20 119/45 94 Room Air Laboratory Tests Test 10/06/17 07:20 White Blood Count 21.2 K/UL (4.8-10.8) H Red Blood Count 3.29 M/UL (4.20-5.40) L Hemoglobin 10.9 G/DL (12.0-16.0) L Hematocrit 32.3 % (37.0-47.0) L Mean Corpuscular Volume 98 FL (80-99) Mean Corpuscular Hemoglobin 33.1 PG (27.0-31.0) H Mean Corpuscular Hemoglobin Concent 33.6 G/DL (32.0-36.0) Red Cell Distribution Width 13.0 % (11.6-14.8) Platelet Count 15 K/UL (150-450) L Mean Platelet Volume 11.8 FL (6.5-10.1) H Neutrophils (%) (Auto) % (45.0-75.0) Lymphocytes (%) (Auto) % (20.0-45.0) Monocytes (%) (Auto) % (1.0-10.0) Eosinophils (%) (Auto) % (0.0-3.0) Basophils (%) (Auto) % (0.0-2.0) Differential Total Cells Counted 100 Neutrophils % (Manual) 55 % (45-75) Lymphocytes % (Manual) 11 % (20-45) L Monocytes % (Manual) 30 % (1-10) H Eosinophils % (Manual) 1 % (0-3) Basophils % (Manual) 1 % (0-2) Band Neutrophils 2 % (0-8) Platelet Estimate Decreased L Platelet Morphology Normal Hypochromasia 1+ Spherocytes 1+ Sodium Level 143 MMOL/L (136-145) Potassium Level 3.9 MMOL/L (3.5-5.1) Chloride Level 113 MMOL/L (98-107) H Carbon Dioxide Level 21 MMOL/L (21-32) Anion Gap 9 mmol/L (5-15) Blood Urea Nitrogen 6 mg/dL (7-18) L Creatinine 0.6 MG/DL (0.55-1.30) Estimat Glomerular Filtration Rate mL/min (>60) Glucose Level 158 MG/DL (74-106) H Lactic Acid Level 2.70 mmol/L (0.66-2.22) H Calcium Level 8.0 MG/DL (8.5-10.1) L Total Bilirubin 0.5 MG/DL (0.2-1.0) Aspartate Amino Transf (AST/SGOT) 21 U/L (15-37) Alanine Aminotransferase (ALT/SGPT) 28 U/L (12-78) Alkaline Phosphatase 51 U/L (46-116) Total Protein 4.8 G/DL (6.4-8.2) L Albumin 2.5 G/DL (3.4-5.0) L Globulin 2.3 g/dL Albumin/Globulin Ratio 1.1 (1.0-2.7) Height (Feet): 4 Height (Inches): 9.00 Weight (Pounds): 94 CASSIE ROA Oct 06, 2017 16:03
--- NOTE | 2017-10-06 17:51 | General Progress Note ---
Assessment/Plan Assessment/Plan Assessment - severe thrombocytopenia - stool impaction - resolved - abnormal CT --> distal ischemic colitis - Leukocytosis and elevated lactic acid - OBS - Guarded Recommendations - bowel regimen - push po - IVF - follow WBC and lactate - hopefully will recover with supportive Rx, since poor surgical candidate Subjective Allergies: Coded Allergies: SULFA (SULFONAMIDE ANTIBIOTICS) (Verified Allergy, Unknown, 10/12/15) Subjective above noted for d/c today WBC still elevated Objective Last 24 Hour Vital Signs Date Time Temp Pulse Resp B/P (MAP) Pulse Ox O2 Delivery O2 Flow Rate FiO2 10/06/17 08:00 97.8 71 18 121/54 93 Room Air 10/06/17 04:00 68 10/06/17 04:00 98.6 70 18 106/58 92 Room Air 10/06/17 00:00 98.0 77 21 126/66 93 Room Air 10/06/17 00:00 78 10/05/17 21:24 122/57 10/05/17 20:13 97.9 53 20 122/57 91 Room Air 10/05/17 20:00 72 Laboratory Tests 10/06/17 07:20: White Blood Count 21.2H, Red Blood Count 3.29L, Hemoglobin 10.9L, Hematocrit 32.3L, Mean Corpuscular Volume 98, Mean Corpuscular Hemoglobin 33.1H, Mean Corpuscular Hemoglobin Concent 33.6, Red Cell Distribution Width 13.0, Platelet Count 15L, Mean Platelet Volume 11.8H, Neutrophils (%) (Auto) , Lymphocytes (%) (Auto) , Monocytes (%) (Auto) , Eosinophils (%) (Auto) , Basophils (%) (Auto) , Differential Total Cells Counted 100, Neutrophils % (Manual) 55, Lymphocytes % ( Manual) 11L, Monocytes % (Manual) 30H, Eosinophils % (Manual) 1, Basophils % ( Manual) 1, Band Neutrophils 2, Platelet Estimate DecreasedL, Platelet Morphology Normal, Hypochromasia 1+, Spherocytes 1+, Sodium Level 143, Potassium Level 3.9, Chloride Level 113H, Carbon Dioxide Level 21, Anion Gap 9, Blood Urea Nitrogen 6L, Creatinine 0.6, Estimat Glomerular Filtration Rate , Glucose Level 158H, Lactic Acid Level 2.70H, Calcium Level 8.0L, Total Bilirubin 0.5, Aspartate Amino Transf (AST/SGOT) 21, Alanine Aminotransferase ( ALT/SGPT) 28, Alkaline Phosphatase 51, Total Protein 4.8L, Albumin 2.5L, Globulin 2.3, Albumin/Globulin Ratio 1.1 Height (Feet): 4 Height (Inches): 9.00 Weight (Pounds): 94 Objective Elderly WW agitated with exam NCAT Supple CTA RRR soft NT ND no edema OBS SHAAN RODRIGUEZ Oct 06, 2017 17:51
--- NOTE | 2017-10-07 03:31 | History and Physical Report ---
DATE OF ADMISSION: 09/29/2017 IDENTIFICATION DATA: The patient is an 87-year-old woman who presented with rectal bleeding and blood in stool. HISTORY OF PRESENT ILLNESS: This is a patient with multiple underlying medical illnesses and a significant degree of functional impairment. Despite this, the patient has been cared for home with 24 hour caregivers and over the last several years she has improved somewhat with better moderation of her behavior and decreased agitation and calling out. In the process of attempting to ameliorate the patient's behavior she was treated with Nuedexta for component of pseudobulbar lability. The patient did respond to the medication but unfortunately her platelet count dropped and it was thought that she experienced a thrombocytopenia associated with the use of quinidine. Therefore, the patient's Nuedexta was discontinued. The patient was instead placed on q.2 hour of low-dose dextromethorphan with some beneficial response. The patient required assistance in all activities of daily living and had an element of dysphagia, which required her to take pureed diet with liquid thickeners but she had done relatively well on this regimen. At home, the patient was noted to develop rectal bleeding and blood in the stool and therefore was brought to the emergency room. In the emergency room, she was noted to have significant leukocytosis with a component of monocytosis. A CT scan of the abdomen was done, which showed massive rectal impaction and evidence of possible proctitis. The patient was initially hypotensive in the early hours of the morning when she was being evaluated in the emergency room. Vigorous hydration was initiated. The patient was covered with Zosyn intravenously and her vital signs stabilized somewhat. She continued to have frequent stools with evidence of dark blood in the stool and the patient was therefore admitted for further evaluation and treatment. On initial evaluation, the patient appeared quite nontoxic in appearance and initially denied all complaints except for left groin pain and pain in the feet. These complaints are chronic and consistent with her chronic pain syndrome report. The patient was tolerating some small amounts of oral intake without immediate discomfort. The patient had been seen by Dr. Solares and his nurse practitioner and they felt that a conservative approach should be implemented with aggressive bowel therapy to try includes a fecal impaction. Invasive measures were deferred initially. PAST MEDICAL HISTORY: 1. Status post cerebrovascular accident with left hemiparesis. 2. Bilateral knee contracture. 3. Hypertension. 4. Pseudobulbar lability. 5. Cognitive deficit likely cerebrovascular in nature. 6. Chronic pain syndrome primarily with left groin pain. 7. Chronic depression with anxiety, agitation, and psychosis. 8. Parkinsonism. 9. Thrombocytopenia thought to be associated with quinidine exposure. CURRENT MEDICATIONS: Bupropion 75 mg daily, carbidopa levodopa 25/100 mg b.i.d., vitamin D3 2000 units b.i.d., dextromethorphan 6 mg q.2 h. while awake, Lexapro 5 mg daily, lisinopril 30 mg at bedtime, Namenda 10 mg b.i.d., quetiapine 25 mg every morning 150 mg at bedtime, ranitidine 150 mg at bedtime, simvastatin 20 mg at bedtime, and trazodone 50 mg at bedtime p.r.n. insomnia. The patient's medications at home include Lacri-lube to the left eye at bedtime and Wellbutrin 75 mg. ALLERGIES: Reportedly to sulfa medications and obviously to quinidine. SOCIAL HISTORY: The patient lives at home with 24 hour caregivers as noted. Her son Ziggy is her primary support and surrogate decision maker. She has another son as well and also a daughter. The patient apparently in the past had developed significant analgesic dependency. Some 15 to 20 years ago, apparently she was detoxed off of oxycodone dependence and had complaints of various aches and pains but in retrospect a fair amount of these complaints will probably somatic presentations of her anxiety, depression, and psychosis. In any event, the [facility] and subsequently stabilized with antidepressant therapy, antipsychotic medications and treatment for her pseudobulbar lability and has done extremely well in the interim with diminished symptomatology and also decreased agitation. FAMILY HISTORY: Not directly contributory. REVIEW OF SYSTEMS: The patient is unable to give detailed reliable responses except what is described as above. Should also be noted the patient is a DNR but to have active therapy. PHYSICAL EXAMINATION: VITAL SIGNS: The patient's blood pressure is 100/57, heart rate 82, respiratory rate 20, temperature 98.2 degrees, and oxygen saturation 92% on room air. GENERAL: The patient is a well-developed, chronically ill-appearing woman, in no overt severe distress, present. HEAD AND NECK: Reveals normocephalic and atraumatic scalp. The sclera and conjunctiva appear anicteric. The oropharynx reveals slightly dry mucosa. NECK: Reveals normal range of motion without masses. CHEST: Reveals clear breath sounds. CARDIAC: Reveals a regular rhythm. ABDOMEN: Reveals a fairly soft abdomen without mass or organomegaly appreciated. The patient complains of tenderness in the left lower quadrant but there is no guarding or rebound so the examinations were relatively unimpressive. The patient has evidence of left hemiparesis and bilateral knee with decrease range of motion. There is no significant peripheral edema. The patient's perirectal area and buttock shows significant amount of inflammation associated with the frequent stools and liquid stools that the patient has been experiencing as part of her bowel evacuation regimen and the stool was at times flecked with bright red blood or dark coloration consistent with old heme. LABORATORY AND DIAGNOSTIC DATA: The patient's initial laboratory data reveals urinalysis which shows 2+ protein, 1+ occult blood, 1+ leukocyte esterase, 2 to 4 RBCs, and 0 to 2 WBCs. The patient's peripheral white count is 21.5, hematocrit of 39.4% with an MCV of 102 and platelet count of 28. The INR is 1.0. PTT is 28. Subsequent laboratories also include chemistries, which include a sodium 141, potassium 4.7, chloride 110, bicarbonate 19, BUN of 33, creatinine 1.4, glucose 172, and calcium 9.3. Total bilirubin 0.6. AST 31, ALT 40, and alkaline phosphatase of 46. Total protein 6.1. Albumin 3.4. CT scan of the abdomen and pelvis reveals a very massive distal colonic fecal impaction with evidence of an inflammatory process in the surrounding bowel. IMPRESSION AND PLAN: The patient presents within significant bowel impaction. There is also question of a possible inflammatory or infectious process in the bowel wall surrounding the impaction either secondary to the impaction or whether this is a primary pathology that may have in fact precipitated impaction is not entirely clear at the present time. Given the presentation, the patient will be treated with intravenous fluid hydration, aggressive bowel therapy as recommended by Dr. Solares and the patient will be continued on Zosyn as empiric antibiotic coverage for the colonic process and oral Flagyl will be added as well to attempt to diminish bacterial load in this area of apparently a disrupted mucosal barrier. Infectious Disease consultation has been requested from Dr. Griffith as well to assist in antibiotic coverage and management. Hopefully, the patient can have her bowel cleared and if no other pathology is apparent, the situation can be ameliorated and stabilized with conservative approach since the patient's overall functional status is such that aggressive therapy is not warranted and not desired by the patient's family. Obviously, there is some risk that the patient could have an aggressive septic process or massive bleeding associated with the pathology in the lower colon but the family understands and not to take this risk in terms of choices of therapy. The patient is no CPR with conservative but active therapy as discussed. Additional interventions will be considered depending on the patient's initial response to therapy. Mike Moody M.D. DR: TISH JOB#: [id number] CC: MIGEL
--- NOTE | 2017-10-07 10:30 | Discharge Summary ---
DATE OF ADMISSION: 09/29/2017 DATE OF DISCHARGE: 10/06/2017 DISCHARGE DIAGNOSES: 1. Massive rectal stool impaction with colonic inflammatory process. 2. Finding of significant area of colonic ischemia, likely not transmural, possibly associated with mechanical compression of the stool impaction, rule out other etiology. 3. 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 4. Chronic pain disorder, primarily with complaints of left lower quadrant pain. 5. Anxiety disorder. 6. Depressive disorder. 7. Multifactorial gait disorder. 8. Pseudobulbar affect. 9. Status post cerebrovascular accident with left hemiparesis. 10. Dysphagia, likely associated with cerebrovascular disease. HISTORY OF PRESENT ILLNESS: The patient presented with rectal bleeding and findings of massive fecal impaction of the distal colon. Details of history and physical per the dictation of 09/30/2017. HOSPITAL COURSE: The patient was evaluated by Dr. Solares and subsequently Dr. Diallo. After initial bowel therapy to clear out the distal colon, because of persistent leukocytosis and intermittent blood loss, Dr. Diallo recommended performing flexible sigmoidoscopy to better visualize the colonic mucosa and determine whether there was some type of mass lesion or malignancy or other inflammatory process. The patient's son agreed and the patient underwent the procedure with finding of residual stool impaction and evidence of circumferential ischemic colitis which appeared to be superficial and nontransmural at the present time. Given the overall approach and the patient's medical problems, the patient's son after detailed discussion of the situation agreed with a conservative approach. The patient is to have continued aggressive bowel therapy to keep the stool extremely loose and prevent recurrent stool collection in the distal colon. The patient was to continue approximately 10 days' worth of Zosyn and oral Flagyl to provide treatment of any superficial mucosal infection and also to diminish the risk of a septic episode as the patient's mucosal barrier breaks down. As the patient's course proceeded, it was noticed her thrombocytopenia appeared to be getting worse and her monocytosis persisted along with significant leukocytosis. It was originally supposed that the leukocytosis and the monocytosis were primarily reactive in nature. The patient did not appear grossly septic on examination; however, at the time the patient was to undergo her flexible sigmoidoscopy, the patient's platelet count was sufficiently low that Dr. Diallo felt that a platelet transfusion was warranted in case he wished to do biopsies. This was supplied and subsequently given the nature of the patient's colonic lesion, it was felt that more information regarding the platelet deficiency should be obtained to ascertain how likely it was the patient would bleed as her necrotic tissue sloughed off and she ulcerated. Consultation was obtained from Dr. Luis Maldonado and he felt also the thrombocytopenia was most likely associated with drug effect; however, flow cytometry was ordered and apparently the results were somewhat suggestive of possible chronic myelocytic leukemia. This situation was discussed with the patient's son. Given the likelihood that the patient would not be able to tolerate significant chemotherapy or other treatment interventions, it was elected to simply watch the patient. It was understood that there would be a risk the patient might convert to an acute leukemic picture but if that should happen, it seems likely the patient would not be able to survive regardless of the type of therapy offered. The patient will be managed in terms of monitoring both the hematocrit and platelet count, and discussion will be held with the patient's son regarding possible transfusion of blood products if necessary for stabilization. The patient's leukocytosis will also be followed but it had during the course of the hospitalization gradually trended downward in terms of neutrophilia and also in terms of the degree of monocytosis, so again hopefully these manifestations were primarily reactive in nature and not indicative of an actual septic process. However, it should also be noted the patient's lactate levels were elevated in the 2.8-2.9 range almost certainly due to the ischemic bowel and obviously there was some concern for possible breakdown in terms of loss of bowel integrity, which could lead to an acute abdomen or in terms of a septic picture which might be fatal as well. Despite these concerns, the patient in general looked reasonably comfortable. She would complain of some abdominal and perineal pain but when distracted, these symptoms became considerably less prominent. The patient was also hydrated aggressively both to maintain intravascular volume and also to correct an element of volume depletion which was initially present. The patient's oral intake had been relatively poor later in the course, this is most likely a manifestation of her bowel problem as well with resulting systemic effect; however, there had been no vomiting and hopefully the patient could be managed conservatively until the inflammatory processes resolved itself to a large extent. Dr. Diallo felt that the patient's inflammatory process if it were not complicated by additional insult would hopefully stabilize in a week to 2 weeks at which point, hopefully the patient's oral intake would improve and also her bowel output could be stabilized in more solid form. Given the patient's significant morbidity and the possibility of fairly rapid decompensation, it was recommended the patient go to a senior care facility for continued intravenous fluids and antibiotics, and monitoring with respect to her overall status. Again, the patient's family may elect to ultimately be fairly conservative should the patient have further decompensation, but having a skilled level of treatment will make identification of any changes more efficacious and allow a more considered decision on the part of the patient's family. DISCHARGE MEDICATIONS: At the time of discharge, the patient's medications will include Bupropion 75 mg daily, Sinemet 25/100 b.i.d., Lexapro 5 mg daily, lisinopril 10 mg q.8 hours, memantine 10 mg b.i.d., quetiapine 25 mg in the morning and 50 mg in the evening and 100 mg at bedtime, Protonix 40 mg orally daily, Zosyn 3.375 g q.12 hours IV, and Flagyl 500 mg q.6 hours po. FOLLOWUP: The patient will be followed up at senior care facility. Mike Moody M.D. DR: TISH JOB#: [id number] CC: MIGEL
--- NOTE | 2017-10-08 16:11 | Cardiology Report ---
APPROVED REPORT EKG Measurement Heart [id number] Normal sinus rhythm Cannot rule out Anterior infarct, age undetermined Abnormal ECG
== END 2017-10-06 09:15 | DRG 388 ==
LOC: EDBD 14:15 → EMR 14:44 → 2E 15:35 → ENRESERV 16:46 → EDBEDREQ 16:55 → 2E 17:46
PROC: 0DBN8ZX Excision of Sigmoid Colon, Via Natural or Artificial Opening Endoscopic, Diagnostic (ICD-10-PCS; principal; 2017-10-03 14:58)
PROC: 30233R1 Transfusion of Nonautologous Platelets into Peripheral Vein, Percutaneous Approach (ICD-10-PCS; principal; 2017-10-03 14:58)
DX: K56.41 Fecal impaction (principal); K55.039 Acute (reversible) ischemia of large intestine, extent unspecified; I95.9 Hypotension, unspecified; C92.10 Chronic myeloid leukemia, BCR/ABL-positive, not having achieved remission; D69.59 Other secondary thrombocytopenia; G20 Parkinson's disease; I69.354 Hemiplegia and hemiparesis following cerebral infarction affecting left non-dominant side; K92.2 Gastrointestinal hemorrhage, unspecified; T46.2X5A Adverse effect of other antidysrhythmic drugs, initial encounter; R13.10 Dysphagia, unspecified; K62.89 Other specified diseases of anus and rectum; Z88.2 Allergy status to sulfonamides; M24.562 Contracture, left knee; M24.561 Contracture, right knee; R45.1 Restlessness and agitation; Z66 Do not resuscitate; G89.4 Chronic pain syndrome; F41.9 Anxiety disorder, unspecified; F34.1 Dysthymic disorder; R26.89 Other abnormalities of gait and mobility; F48.2 Pseudobulbar affect; I69.391 Dysphagia following cerebral infarction; K57.90 Diverticulosis of intestine, part unspecified, without perforation or abscess without bleeding; I69.319 Unspecified symptoms and signs involving cognitive functions following cerebral infarction; I10 Essential (primary) hypertension
CPT/HCPCS: 36415; 71010; 74000; 74177; 80048; 80053; 81001; 82550; 83605; 83615; 83735; 85007; 85025; 85060; 85610; 85730; 86850; 86900; 86901; 87040; 87081; 93005; 94003; 94150; 99285; J2250